=== PATIENT | male | born 1970 | race Caucasian/White ===

== ENCOUNTER → 2017-07-17 10:14 | Outpatient (CLI) | payer MEDICARE, MEDICAID, SELFPAY ==
[2017-07-17 13:08] LABS: Add Manual Diff / Slide Review NO; Basophils Percent Auto 0.9 % (0-2); Eosinophils Percent Auto 1.6 % (2-4); Hematocrit 42.5 % (41-53); Hemoglobin 13.9 g/dL (13.5-17.5); Lymphocytes Percent Auto 36.5 % (25-40); Mean Corpuscular HGB Conc 32.6 % (30-36); Mean Corpuscular Hemoglobin 29.4 PG (26-34); Mean Corpuscular Volume 90.3 fL (80-100); Monocytes Percent Auto 6.7 % (3-14); Neutrophils Absolute Auto 2200 /uL (3000-5900); Neutrophils Percent Auto 54.3 % (50-75); Platelet Count 203 X10^3/uL (150-400); Red Blood Cell Count 4.71 X10^6/uL (4.5-5.9); Red Cell Distribution Width 15.4 % (11.6-14.8)
[2017-07-17 13:38] LABS: Alanine Aminotransferase 22 IU/L (21-72); Albumin 4.2 g/dL (3.5-5.0); Albumin Globulin Ratio 1.4 (1.0-2.8); Alkaline Phosphatase 88 U/L (38-126); Aspartate Aminotransferase 21 IU/L (17-59); Bilirubin Total 0.3 mg/dL (0.2-1.3); Blood Urea Nitrogen 21 mg/dL (9-20); Calcium 9.3 mg/dL (8.4-10.2); Carbon Dioxide 18 mmol/L (22-32); Chloride 112 mmol/L (98-107); Cholesterol 123 mg/dL (140-199); Estimated Glomerular Filt Rate > 60.0 mL/min (>60); Globulin 3.1 g/dL (1.7-4.1); Glucose 85 mg/dL (70-100); HDL Cholesterol 46 mg/dL (40-60); HEMOLYSIS < 15 (0-50); LDL Cholesterol Calculated 61 mg/dL (<100); Potassium 4.6 mmol/L (3.4-5.1); Sodium 144 mmol/L (137-145); Total Protein 7.3 g/dL (6.3-8.2); Triglycerides 80 mg/dL (35-150)
[2017-07-17 13:52] LABS: Follicle Stimulating Hormone 2.72 mIU/mL; Luteinizing Hormone 8.97 mIU/mL
== END ==
PROVIDERS: Family Provider Internal Medicine; PCP Internal Medicine; Visit Provider Internal Medicine Endocrinology, Diabetes & Metabolism
DX: F64.0 Transsexualism (principal); Z00.00 Encounter for general adult medical examination without abnormal findings
CPT/HCPCS: 36415; 80053; 80061; 83001; 83002; 84402; 84403; 85025

== ENCOUNTER 2017-08-13 13:28 | Emergency (ER) | payer MEDICARE, MEDICAID, SELFPAY ==
[2017-08-13 13:36] VITALS: BP 131/89; PULSE 60; RESP 18; TEMP 36.2; O2SAT 99
--- NOTE | 2017-08-13 13:41 | ED_ITS ---
HPI - Abdominal Pain General Chief Complaint: Abdominal Pain Stated Complaint: PAIN LEFT SIDE Time Seen by Provider: 08/13/17 13:41 Source: patient Mode of arrival: ambulatory Limitations: no limitations History of Present Illness HPI narrative: 47-year-old male with history of epilepsy currently on those medications without change in his medicines recently here for evaluation of left upper quadrant abdominal pain. Patient states that has been going on for the past couple days but has worsened over the past day or so. No nausea. No urinary symptoms. No bowel symptoms. No skin changes. He has never anything like this before. No prior abdominal surgeries. Has not taken anything for It prior to arrival. Related Data Home Medications Medication Instructions Recorded Confirmed topiramate [Topamax] 100 mg PO BID #0 06/02/11 08/13/17 levetiracetam [Keppra] 2,000 mg PO BID #0 04/13/16 08/13/17 Previous Rx's Medication Instructions Recorded valacyclovir 1,000 mg PO QDAY #90 tab 04/10/16 quetiapine [Seroquel] 100 mg PO HS #90 tab 08/25/16 cyclobenzaprine 10 mg PO Q8HP PRN #20 tab 09/25/16 Allergies Allergy/AdvReac Type Severity Reaction Status Date / Time diazepam Allergy Severe TACHYCARDIA Unverified 05/23/17 12:05 strawberry Allergy Severe ANAPHYLAXIS Unverified 05/23/17 12:05 trazodone Allergy Intermediate SEIZURE Unverified 05/23/17 12:05 amitriptyline [AMITRIPTYLINE] Allergy Unknown Unverified 05/23/17 12:05 nortriptyline [NORTRIPTYLINE] Allergy Unknown Unverified 05/23/17 12:05 haloperidol AdvReac Severe JACKED ME Unverified 05/23/17 12:05 UP Review of Systems Constitutional Denies fatigue and Denies fever(s) ENT Ears, Nose, Mouth, and Throat: Denies vertigo and Denies dizziness Cardiovascular Denies chest pain, Denies palpitations and Denies dyspnea Respiratory Denies cough and Denies dyspnea Gastrointestinal Gastrointestinal: Reports abdominal pain, Denies cramping, Denies diarrhea, Denies nausea and Denies vomiting Genitourinary Denies dysuria and Denies flank pain Musculoskeletal Denies myalgias and Denies arthralgias Integumentary/Breasts Denies lesions, Denies rash and Denies wounds Neurologic Denies confusion, Denies vertigo and Denies dizziness Psychiatric Denies confusion Endocrine Denies fatigue and Denies palpitations Hematologic/Lymphatic Denies easy bleeding and Denies easy bruising Exam Initial Vital Signs Initial Vital Signs: Vital Signs Temperature 97.1 F L 08/13/17 13:36 Pulse Rate 60 08/13/17 13:36 Respiratory Rate 18 08/13/17 13:36 Blood Pressure 131/89 H 08/13/17 13:36 Pulse Oximetry 99 08/13/17 13:36 Const General: cooperative, healthy appearing, comfortable, well developed, well groomed and No acute distress Orientation: alert and oriented x3 HENMT Head: normal to inspection, normocephalic and atraumatic Cardio Rate: regular rate Rhythm: regular rhythm Pulses: radial pulses present GI Inspection: non-distended Palpation: soft, No guarding and tender ( left upper quadrant without rebound) Back/Spine/Pelvis Back: No CVA tenderness Skin Lesions: no lesions Rashes: no rashes Neuro General: alert, awake and oriented x3 Cognition: normal cognition Speech: speech normal Gait: normal gait Extrem General: normal to inspection, capillary refill normal and normal exam except as noted Psych Appearance: grossly normal, well kempt and not disheveled Course Orders Ordered: ED Orders 08/13/17 13:58 CT abdomen pelvis w con Stat 08/13/17 14:15 Complete Blood Count AUTO DIFF Stat Comprehensive Metabolic Panel Stat Lipase Stat Discontinued Medications Sodium Chloride (Normal Saline 0.9%) 1,000 mls @ 1,000 mls/hr IV BOLUS ONE Stop: 08/13/17 14:50 Last Admin: 08/13/17 14:30 Dose: 1,000 mls/hr Vital Signs - 8 hr 08/13/17 13:36 08/13/17 15:06 Temperature 97.1 F L Pulse Rate 60 60 Respiratory Rate 18 17 Blood Pressure 131/89 H Blood Pressure [Left Arm] 135/90 H Pulse Oximetry 99 100 MDM - Abdominal Pain Lab Data Attestation: I reviewed the patient's lab results. Result diagrams: 08/13/17 14:15 08/13/17 14:15 Lab Results 08/13/17 08/13/17 08/13/17 Range/Units 14:15 14:15 14:15 WBC 3.5 L (4.5-11.0) X10^3/uL RBC 4.68 (4.5-5.9) X10^6/uL Hgb 13.8 (13.5-17.5) g/dL Hct 41.7 (41-53) % MCV 89.2 (80-100) fL MCH 29.4 (26-34) PG MCHC 33.0 (30-36) % RDW 15.2 H (11.6-14.8) % Plt Count 227 (150-400) X10^3/uL Neut % (Auto) 45.8 L (50-75) % Lymph % (Auto) 43.9 H (25-40) % Mercer % (Auto) 7.3 (3-14) % Eos % (Auto) 1.9 L (2-4) % Baso % (Auto) 1.1 (0-2) % Neut # (Auto) 1600 L (8814-1326) /uL Sodium 139 (137-145) mmol/L Potassium 4.2 (3.4-5.1) mmol/L Chloride 105 (98-107) mmol/L Carbon Dioxide 24 (22-32) mmol/L BUN 7 L (9-20) mg/dL Creatinine 0.90 (0.66-1.25) mg/dL Estimated GFR > 60.0 (>60) mL/min BUN/Creatinine Ratio 7.8 (6-22) Glucose 85 (70-100) mg/dL Calcium 9.2 (8.4-10.2) mg/dL Total Bilirubin 0.5 (0.2-1.3) mg/dL AST 33 (17-59) IU/L ALT 26 (21-72) IU/L Alkaline Phosphatase 94 (38-126) U/L Total Protein 7.2 (6.3-8.2) g/dL Albumin 4.3 (3.5-5.0) g/dL Globulin 2.9 (1.7-4.1) g/dL Albumin/Globulin Ratio 1.5 (1.0-2.8) Lipase 106 Cancelled (23-300) U/L Point of care testing: Urine Dip Bedside Urine Glucose Negative Bedside Urine Bilirubin - Negative Bedside Urine Ketone - Negative Urine Specific Alexander 1.015 Bedside Urine Occult Blood - Negative Bedside Urine pH 6.0 Bedside Urine Protein - Negative Bedside Urine Urobilinogen - Negative Bedside Urine Nitrite - Negative Bedside Urine Leukocytes - Negative Esterase Imaging Data CT scan - abdomen: Radiologist's impression: PROCEDURE: CT ABDOMEN PELVIS W CON INDICATIONS: left upper quadrant abdominal pain TECHNIQUE: After the administration of intravenous contrast, 5 mm thick sections acquired from the diaphragm to the symphysis. 5 mm coronal and sagittal reformats were acquired. For radiation dose reduction, the following was used: automated exposure control, adjustment of mA and/or kV according to patient size. COMPARISON: [facility], CT, L-SPINE WITHOUT CONTRAST, 09/25/2016, 16:41. [facility], CT, CT-IVP, 02/23/2011, 9:45. FINDINGS: Image quality: Excellent. ABDOMEN: Lung bases: Lung bases are clear. Heart size is normal. Small hiatal hernia Solid organs: Liver is normal in size and enhancement. There is a 1 cm cyst in the left hepatic lobe. A 3 mm indeterminate hypodensity is noted near the liver dome, also likely a cyst. Gallbladder is normal. Biliary system is non dilated. Pancreas enhances normally. Spleen is normal in size and enhancement. No adrenal nodules. Kidneys demonstrate normal size and enhancement, without hydronephrosis. A simple appearing cyst is noted in the inferior pole of the left kidney. Peritoneum and bowel: There is mild nodularity in the posterior aspect of the gastric cardia, which is unchanged since 02/23/2011, likely due to inadequate distention. Bowel loops demonstrate normal wall thickness and caliber. No free fluid or air. Nodes and vessels: No retroperitoneal or mesenteric adenopathy by size criteria. Aorta and inferior vena cava are normal in size. Miscellaneous: No ventral hernias. PELVIS: Genitourinary: Bladder wall thickness is normal. Miscellaneous: No inguinal hernias or adenopathy. Bones: No suspicious bony lesions. No vertebral body compression fractures. Postsurgical changes in the lower lumbar spine. IMPRESSION: 1. No CT findings to explain left upper abdominal pain. 2. Hepatic cysts. 3. Simple appearing left renal cyst. 4. Small hiatal hernia. Dictated by: Precious Alex M.D. on 08/13/2017 at 15:04 Approved by: Precious Alex M.D. on 08/13/2017 at 15:18 MDM Narrative Medical decision making narrative: CT scan negative for acute pathology. Lipase is unremarkable And not consistent with pancreatitis. Upon re- evaluation patient was pinpoint tender on the intercostal muscles in between his anterior left lower ribs. I suspect that his pain is the result of spasm of these muscles. No indication for antibiotics. I did discuss this with him. No skin changes concerning for zoster. We did discuss treatment for these. We did discuss anti-inflammatories use. We did discuss return precautions. He expressed understanding and agreement with plan. Discharge Plan Departure Patient Disposition: Home, Self-Care Clinical Impression: Abdominal pain, acute, left upper quadrant, Intercostal pain Instructions: DI for Abdominal Pain-Adult Activity Restrictions/Additional Instructions: recommend that you take anti-inflammatories such as Motrin /ibuprofen and/or Tylenol/ acetaminophen for the discomfort. You can also do light stretching. You can also place heat or ice over the area as needed. Call your primary care doctor for a follow-up. Return to the emergency department for any new or worsening symptoms Prescriptions: No Action topiramate [Topamax] 100 MG tablet 100 mg PO BID Qty: 0 RF: 0 valacyclovir 1,000 MG tablet 1,000 mg PO QDAY Qty: 90 RF: 3 levetiracetam [Keppra] 1,000 MG tablet 2,000 mg PO BID Qty: 0 RF: 0 quetiapine [Seroquel] 100 MG tablet 100 mg PO HS Qty: 90 RF: 6 cyclobenzaprine 10 MG tablet 10 mg PO Q8HP PRNQty: 20 RF: 0
--- NOTE | 2017-08-13 13:58 | DI.CT.S_ITS ---
PROCEDURE: CT ABDOMEN PELVIS W CON INDICATIONS: left upper quadrant abdominal pain TECHNIQUE: After the administration of intravenous contrast, 5 mm thick sections acquired from the diaphragm to the symphysis. 5 mm coronal and sagittal reformats were acquired. For radiation dose reduction, the following was used: automated exposure control, adjustment of mA and/or kV according to patient size. COMPARISON: [facility], CT, L-SPINE WITHOUT CONTRAST, 09/25/2016, 16:41. [facility], CT, CT-IVP, 02/23/2011, 9:45. FINDINGS: Image quality: Excellent. ABDOMEN: Lung bases: Lung bases are clear. Heart size is normal. Small hiatal hernia Solid organs: Liver is normal in size and enhancement. There is a 1 cm cyst in the left hepatic lobe. A 3 mm indeterminate hypodensity is noted near the liver dome, also likely a cyst. Gallbladder is normal. Biliary system is non dilated. Pancreas enhances normally. Spleen is normal in size and enhancement. No adrenal nodules. Kidneys demonstrate normal size and enhancement, without hydronephrosis. A simple appearing cyst is noted in the inferior pole of the left kidney. Peritoneum and bowel: There is mild nodularity in the posterior aspect of the gastric cardia, which is unchanged since 02/23/2011, likely due to inadequate distention. Bowel loops demonstrate normal wall thickness and caliber. No free fluid or air. Nodes and vessels: No retroperitoneal or mesenteric adenopathy by size criteria. Aorta and inferior vena cava are normal in size. Miscellaneous: No ventral hernias. PELVIS: Genitourinary: Bladder wall thickness is normal. Miscellaneous: No inguinal hernias or adenopathy. Bones: No suspicious bony lesions. No vertebral body compression fractures. Postsurgical changes in the lower lumbar spine. IMPRESSION: 1. No CT findings to explain left upper abdominal pain. 2. Hepatic cysts. 3. Simple appearing left renal cyst. 4. Small hiatal hernia. Dictated by: Precious Alex M.D. on 08/13/2017 at 15:04 Approved by: Precious Alex M.D. on 08/13/2017 at 15:18
[2017-08-13 14:24] LABS: Add Manual Diff / Slide Review NO; Basophils Percent Auto 1.1 % (0-2); Eosinophils Percent Auto 1.9 % (2-4); Hematocrit 41.7 % (41-53); Hemoglobin 13.8 g/dL (13.5-17.5); Lymphocytes Percent Auto 43.9 % (25-40); Mean Corpuscular Hemoglobin 29.4 PG (26-34); Mean Corpuscular Volume 89.2 fL (80-100); Monocytes Percent Auto 7.3 % (3-14); Neutrophils Absolute Auto 1600 /uL (3000-5900); Neutrophils Percent Auto 45.8 % (50-75); Platelet Count 227 X10^3/uL (150-400); Red Blood Cell Count 4.68 X10^6/uL (4.5-5.9); Red Cell Distribution Width 15.2 % (11.6-14.8); White Blood Cell Count 3.5 X10^3/uL (4.5-11.0)
[2017-08-13] MEDS: SODIUM CHLORIDE 0.9% 1,000 ML 1000 ML IV (14:30)
[2017-08-13 14:38] LABS: Alanine Aminotransferase 26 IU/L (21-72); Albumin 4.3 g/dL (3.5-5.0); Albumin Globulin Ratio 1.5 (1.0-2.8); Alkaline Phosphatase 94 U/L (38-126); Aspartate Aminotransferase 33 IU/L (17-59); BUN Creatinine Ratio 7.8 (6-22); Bilirubin Total 0.5 mg/dL (0.2-1.3); Blood Urea Nitrogen 7 mg/dL (9-20); Calcium 9.2 mg/dL (8.4-10.2); Carbon Dioxide 24 mmol/L (22-32); Chloride 105 mmol/L (98-107); Estimated Glomerular Filt Rate > 60.0 mL/min (>60); Globulin 2.9 g/dL (1.7-4.1); Glucose 85 mg/dL (70-100); HEMOLYSIS < 15 (0-50); Lipase 106 U/L (23-300); Potassium 4.2 mmol/L (3.4-5.1); Sodium 139 mmol/L (137-145); Total Protein 7.2 g/dL (6.3-8.2)
[2017-08-13 15:06] VITALS: BP 135/90; PULSE 60; RESP 17; O2SAT 100
[2017-08-13 15:41] VITALS: BP 128/88; PULSE 54
== END 2017-08-13 15:53 | disposition home or self-care (01) ==
PROVIDERS: Emergency Provider Emergency Medicine; Family Provider Internal Medicine; PCP Internal Medicine
DX: R10.9 Unspecified abdominal pain (principal); R07.82 Intercostal pain
CPT/HCPCS: 36591; 74177; 80053; 81003; 83690; 85025; 96360; 99283; 99285; Q9967

== ENCOUNTER → 2017-09-20 12:39 | Outpatient (CLI) | payer MEDICARE, MEDICAID, SELFPAY ==
[2017-09-25 12:22] LABS: Levetiracetam Keppra 30.4 mcg/mL
== END ==
PROVIDERS: Family Provider Internal Medicine Endocrinology, Diabetes & Metabolism; PCP Internal Medicine; Visit Provider Psychiatry & Neurology Neurology
DX: G40.909 Epilepsy, unspecified, not intractable, without status epilepticus (principal)
CPT/HCPCS: 36415; 80177; 80201

== ENCOUNTER 2017-11-12 15:27 | Emergency (ER) | payer MEDICARE, MEDICAID, SELFPAY ==
[2017-11-12] VITALS (13 sets, daily range): BP systolic 111–144; BP diastolic 78–96; PULSE 44–91; RESP 13–20; TEMP 36.7; O2SAT 97–100; BMI 29.0
--- NOTE | 2017-11-12 15:55 | ED.CHESTPAIN ---
HPI - Chest Pain <Holli Leonard, DO - Last Filed: 11/12/17 18:08> General Chief Complaint: Chest Pain Stated Complaint: chest pain Time Seen by Provider: 11/12/17 15:39 Source: patient Mode of arrival: ambulatory Limitations: no limitations History of Present Illness HPI narrative: Patient is a 47-year-old male goes by Carl, presenting with left-sided chest. 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 He started having left-sided chest pain yesterday. It is fairly constant it is pinpoint he denies any shortness of breath or radiation. He has never had anything like this before. He was instructed as to be evaluated if he were having chest discomfort due to the surgeon. He denies any cough fever. The pain is not reproduced with breathing or arm movement. He feels like it is deeper inside. Related Data Home Medications Medication Instructions Recorded Confirmed topiramate [Topamax] 100 mg PO BID #0 06/02/11 11/12/17 levetiracetam [Keppra] 2,000 mg PO BID #0 04/13/16 11/12/17 estradiol 1 mg tablet 1 mg PO DAILY 10/23/17 11/12/17 valacyclovir 1,000 mg PO QPM 11/12/17 11/12/17 Previous Rx's Medication Instructions Recorded quetiapine 100 mg tablet 100 mg PO HS #90 tab 09/28/17 Allergies Allergy/AdvReac Type Severity Reaction Status Date / Time diazepam Allergy Severe TACHYCARDIA Verified 11/12/17 15:49 strawberry Allergy Severe ANAPHYLAXIS Verified 11/12/17 15:49 trazodone Allergy Intermediate SEIZURE Verified 11/12/17 15:49 amitriptyline [AMITRIPTYLINE] Allergy Unknown Verified 11/12/17 15:49 nortriptyline [NORTRIPTYLINE] Allergy Unknown Verified 11/12/17 15:49 haloperidol AdvReac Severe JACKED ME Verified 11/12/17 15:49 UP <Naima Martinez, DO - Last Filed: 11/13/17 00:00> History of Present Illness HPI narrative: This is a 47-year-old female to male transgender patient who comes in with complaint of chest pain that is been almost 24 hr in length. Patient states sort of in the left side of the chest. Nothing really seems to make it better or worse. They just noticed sort of show up yesterday. Patient states they came in because they were told any time they had chest pain to come in for evaluation. Denies any shortness of breath. No nausea, no vomiting or other symptoms. Patient also has a history significant for seizures and takes Keppra and Topamax. They take Seroquel for insomnia as well else I clear and estradiol. Patient does not have any significant family history for DVTs, PEs or cardiac history. He does smoke. Currently on my evaluation he is chest pain-free. Dr. Moseley from hospitalist service accepts patient for transfer. Exam <Holli Leonard DO - Last Filed: 11/12/17 18:08> Initial Vital Signs Initial Vital Signs: Vital Signs Temperature 98.1 F 11/12/17 15:28 Pulse Rate 78 11/12/17 15:28 Respiratory Rate 18 11/12/17 15:28 Blood Pressure 144/92 H 11/12/17 15:28 Pulse Oximetry 98 11/12/17 15:28 <Naima Martinez DO - Last Filed: 11/13/17 00:00> Initial Vital Signs Initial Vital Signs: Vital Signs Temperature 98.1 F 11/12/17 15:28 Pulse Rate 78 11/12/17 15:28 Respiratory Rate 18 11/12/17 15:28 Blood Pressure 144/92 H 11/12/17 15:28 Pulse Oximetry 98 11/12/17 15:28 GENERAL: Alert and oriented x three, well-nourished, well-appearing biological female HEENT: Head normocephalic, atraumatic, EOMI, pupils reactive, face symmetric, moist mucous membranes NECK: Supple, full range of motion CARDIOVASCULAR: Regular rate and rhythm without murmurs, rubs or gallops. RESPIRATORY: Breath sounds equal bilaterally, no wheezes rales or rhonchi. ABDOMEN: Soft, nontender. Normoactive bowel sounds all 4 quadrants. No guarding or rebound, rigidity, no mass EXTREMITIES: Normal range of motion, no clubbing or edema. Neurovascularly intact NEUROLOGICAL: Cranial nerves II through XII grossly intact. Moving all extremities SKIN: Warm, dry, no petechiae, no rashes or lesions. <Naima Martinez DO - Last Filed: 11/13/17 00:00> HEART Score Heart Score history: Slightly Suspicious Heart Score EKG: Normal Heart Score Age: 45-64 years old Heart Score risk factors: 1-2 risk factors Heart Score troponin: > 3 times normal limit Heart Score Total: 4 Course <Holli Leonard DO - Last Filed: 11/12/17 18:08> Orders Ordered: ED Orders 11/12/17 15:45 Complete Blood Count AUTO DIFF Stat Comprehensive Metabolic Panel Stat D Dimer Stat Lipase Stat Troponin & CK Cardiac Panel Stat 11/12/17 16:06 XR chest 1V Stat 11/12/17 18:52 Troponin I Stat Discontinued Medications Aspirin (Aspirin Chew) 324 mg PO NOW ONE Stop: 11/12/17 17:00 Last Admin: 11/12/17 17:09 Dose: 324 mg Enoxaparin Sodium (Lovenox) 120 mg 1 mg/kg (120 mg) SUBCUT NOW ONE Stop: 11/12/17 17:09 Last Admin: 11/12/17 17:15 Dose: 120 mg Nitroglycerin (Nitrostat) 0.4 mg SL NOW ONE Stop: 11/12/17 17:00 Last Admin: 11/12/17 16:59 Dose: 0.4 mg Vital Signs - 8 hr 11/12/17 16:00 11/12/17 16:42 11/12/17 16:59 Temperature Pulse Rate 55 L 59 L 71 Respiratory Rate 16 20 Blood Pressure 115/79 Blood Pressure [Right Arm] 126/84 115/79 Pulse Oximetry 98 97 11/12/17 17:04 11/12/17 17:05 11/12/17 19:05 Temperature 98.1 F Pulse Rate 59 L 73 60 Respiratory Rate 20 19 Blood Pressure 144/92 H 111/78 Blood Pressure [Right Arm] 123/96 H Pulse Oximetry 97 100 11/12/17 20:09 11/12/17 21:20 11/12/17 22:30 Temperature Pulse Rate 62 54 L 91 H Respiratory Rate 19 13 14 Blood Pressure Blood Pressure [Right Arm] 138/87 129/92 H 125/87 Pulse Oximetry 98 98 99 11/12/17 23:30 11/12/17 23:36 Temperature Pulse Rate 56 L 44 L Respiratory Rate 18 16 Blood Pressure Blood Pressure [Right Arm] 123/91 H 123/91 H Pulse Oximetry 99 100 <Naima Martinez DO - Last Filed: 11/13/17 00:00> Orders Ordered: ED Orders 11/12/17 15:45 Complete Blood Count AUTO DIFF Stat Comprehensive Metabolic Panel Stat D Dimer Stat Lipase Stat Troponin & CK Cardiac Panel Stat 11/12/17 16:06 XR chest 1V Stat 11/12/17 18:52 Troponin I Stat Discontinued Medications Aspirin (Aspirin Chew) 324 mg PO NOW ONE Stop: 11/12/17 17:00 Last Admin: 11/12/17 17:09 Dose: 324 mg Enoxaparin Sodium (Lovenox) 120 mg 1 mg/kg (120 mg) SUBCUT NOW ONE Stop: 11/12/17 17:09 Last Admin: 11/12/17 17:15 Dose: 120 mg Nitroglycerin (Nitrostat) 0.4 mg SL NOW ONE Stop: 11/12/17 17:00 Last Admin: 11/12/17 16:59 Dose: 0.4 mg Consultations Consultation #1: Recontacted [facility] in regards to chest pain and troponin with little change. 0.218 to 0.205. Patient accepted by Dr. Moseley the hospitalist @ 2036. Time: 19:56 Vital Signs - 8 hr 11/12/17 16:00 11/12/17 16:42 11/12/17 16:59 Temperature Pulse Rate 55 L 59 L 71 Respiratory Rate 16 20 Blood Pressure 115/79 Blood Pressure [Right Arm] 126/84 115/79 Pulse Oximetry 98 97 11/12/17 17:04 11/12/17 17:05 11/12/17 19:05 Temperature 98.1 F Pulse Rate 59 L 73 60 Respiratory Rate 20 19 Blood Pressure 144/92 H 111/78 Blood Pressure [Right Arm] 123/96 H Pulse Oximetry 97 100 11/12/17 20:09 11/12/17 21:20 11/12/17 22:30 Temperature Pulse Rate 62 54 L 91 H Respiratory Rate 19 13 14 Blood Pressure Blood Pressure [Right Arm] 138/87 129/92 H 125/87 Pulse Oximetry 98 98 99 11/12/17 23:30 11/12/17 23:36 Temperature Pulse Rate 56 L 44 L Respiratory Rate 18 16 Blood Pressure Blood Pressure [Right Arm] 123/91 H 123/91 H Pulse Oximetry 99 100 MDM - Chest Pain <Holli Leonard DO - Last Filed: 11/12/17 18:08> Lab Data Attestation: I reviewed the patient's lab results. Result diagrams: 11/12/17 15:45 11/12/17 15:45 Lab Results 11/12/17 11/12/17 11/12/17 Range/Units 15:45 15:45 15:45 WBC 4.4 L (4.5-11.0) X10^3/uL RBC 4.58 (4.5-5.9) X10^6/uL Hgb 13.5 (13.5-17.5) g/dL Hct 40.7 L (41-53) % MCV 88.8 (80-100) fL MCH 29.5 (26-34) PG MCHC 33.2 (30-36) % RDW 14.3 (11.6-14.8) % Plt Count 205 (150-400) X10^3/uL Neut % (Auto) 56.0 (50-75) % Lymph % (Auto) 33.9 (25-40) % Sanders % (Auto) 7.6 (3-14) % Eos % (Auto) 2.0 (2-4) % Baso % (Auto) 0.5 (0-2) % Neut # (Auto) 2500 L (8836-7508) /uL D-Dimer < 200 (<230) ng/mL Sodium 144 (137-145) mmol/L Potassium 4.0 (3.4-5.1) mmol/L Chloride 109 H (98-107) mmol/L Carbon Dioxide 22 (22-32) mmol/L BUN 11 (9-20) mg/dL Creatinine 1.20 (0.66-1.25) mg/dL Estimated GFR > 60.0 (>60) mL/min BUN/Creatinine Ratio 9.2 (6-22) Glucose 90 (70-100) mg/dL Calcium 9.4 (8.4-10.2) mg/dL Total Bilirubin 0.3 (0.2-1.3) mg/dL AST 30 (17-59) IU/L ALT 20 L (21-72) IU/L Alkaline Phosphatase 76 (38-126) U/L Total Creatine Kinase 75 (55-170) U/L CK-MB (CK-2) TNP CK-MB (CK-2) Rel Index TNP Troponin I 0.218 H* (0.01-0.034) ng/mL Total Protein 7.0 (6.3-8.2) g/dL Albumin 4.3 (3.5-5.0) g/dL Globulin 2.7 (1.7-4.1) g/dL Albumin/Globulin Ratio 1.6 (1.0-2.8) Lipase 173 (23-300) U/L 11/12/17 Range/Units 18:52 WBC (4.5-11.0) X10^3/uL RBC (4.5-5.9) X10^6/uL Hgb (13.5-17.5) g/dL Hct (41-53) % MCV (80-100) fL MCH (26-34) PG MCHC (30-36) % RDW (11.6-14.8) % Plt Count (150-400) X10^3/uL Neut % (Auto) (50-75) % Lymph % (Auto) (25-40) % Sanders % (Auto) (3-14) % Eos % (Auto) (2-4) % Baso % (Auto) (0-2) % Neut # (Auto) (7386-2506) /uL D-Dimer (<230) ng/mL Sodium (137-145) mmol/L Potassium (3.4-5.1) mmol/L Chloride (98-107) mmol/L Carbon Dioxide (22-32) mmol/L BUN (9-20) mg/dL Creatinine (0.66-1.25) mg/dL Estimated GFR (>60) mL/min BUN/Creatinine Ratio (6-22) Glucose (70-100) mg/dL Calcium (8.4-10.2) mg/dL Total Bilirubin (0.2-1.3) mg/dL AST (17-59) IU/L ALT (21-72) IU/L Alkaline Phosphatase (38-126) U/L Total Creatine Kinase (55-170) U/L CK-MB (CK-2) CK-MB (CK-2) Rel Index Troponin I 0.205 H* (0.01-0.034) ng/mL Total Protein (6.3-8.2) g/dL Albumin (3.5-5.0) g/dL Globulin (1.7-4.1) g/dL Albumin/Globulin Ratio (1.0-2.8) Lipase (23-300) U/L Urine Dip Bedside Urine Glucose Negative Bedside Urine Bilirubin - Negative Bedside Urine Ketone - Negative Urine Specific Hickman 1.030 Bedside Urine Occult Blood - Negative Bedside Urine pH 6.0 Bedside Urine Protein - Negative Bedside Urine Urobilinogen - Negative Bedside Urine Nitrite - Negative Bedside Urine Leukocytes - Negative Esterase ECG Data Attestation: I personally reviewed and interpreted this ECG as follows: Prior ECG tracings: available for review Interpretation: EKG 1. Normal sinus rhythm rate [address] changes no T-wave inversions no Q-waves similar to previous EKG MDM Narrative Medical decision making narrative: Patient appears comfortable he does not want anything for pain at this time does not feel like it is that bad. Troponin is positive 0.218. His D-dimer is negative unlikely to be PE. He does have risk factors of smoking 5:[address] Srivastava, at [facility] has been updated on patient's symptoms and test results. She is with Cardiology at this time recommend admission to hospitalist. 6:10 p.m.: I spoke with , hospitalist at [facility] who recommends repeating the troponin at 6:45 a.m.. If trending down may not need to be transferred that may just need to be admitted. Patient signed out to Dr. Martinez at shift change. <Naima Martinez, DO - Last Filed: 11/13/17 00:00> Lab Data Lab Results 11/12/17 11/12/17 11/12/17 Range/Units 15:45 15:45 15:45 WBC 4.4 L (4.5-11.0) X10^3/uL RBC 4.58 (4.5-5.9) X10^6/uL Hgb 13.5 (13.5-17.5) g/dL Hct 40.7 L (41-53) % MCV 88.8 (80-100) fL MCH 29.5 (26-34) PG MCHC 33.2 (30-36) % RDW 14.3 (11.6-14.8) % Plt Count 205 (150-400) X10^3/uL Neut % (Auto) 56.0 (50-75) % Lymph % (Auto) 33.9 (25-40) % Sanders % (Auto) 7.6 (3-14) % Eos % (Auto) 2.0 (2-4) % Baso % (Auto) 0.5 (0-2) % Neut # (Auto) 2500 L (9346-7302) /uL D-Dimer < 200 (<230) ng/mL Sodium 144 (137-145) mmol/L Potassium 4.0 (3.4-5.1) mmol/L Chloride 109 H (98-107) mmol/L Carbon Dioxide 22 (22-32) mmol/L BUN 11 (9-20) mg/dL Creatinine 1.20 (0.66-1.25) mg/dL Estimated GFR > 60.0 (>60) mL/min BUN/Creatinine Ratio 9.2 (6-22) Glucose 90 (70-100) mg/dL Calcium 9.4 (8.4-10.2) mg/dL Total Bilirubin 0.3 (0.2-1.3) mg/dL AST 30 (17-59) IU/L ALT 20 L (21-72) IU/L Alkaline Phosphatase 76 (38-126) U/L Total Creatine Kinase 75 (55-170) U/L CK-MB (CK-2) TNP CK-MB (CK-2) Rel Index TNP Troponin I 0.218 H* (0.01-0.034) ng/mL Total Protein 7.0 (6.3-8.2) g/dL Albumin 4.3 (3.5-5.0) g/dL Globulin 2.7 (1.7-4.1) g/dL Albumin/Globulin Ratio 1.6 (1.0-2.8) Lipase 173 (23-300) U/L 11/12/17 Range/Units 18:52 WBC (4.5-11.0) X10^3/uL RBC (4.5-5.9) X10^6/uL Hgb (13.5-17.5) g/dL Hct (41-53) % MCV (80-100) fL MCH (26-34) PG MCHC (30-36) % RDW (11.6-14.8) % Plt Count (150-400) X10^3/uL Neut % (Auto) (50-75) % Lymph % (Auto) (25-40) % Sanders % (Auto) (3-14) % Eos % (Auto) (2-4) % Baso % (Auto) (0-2) % Neut # (Auto) (7669-9057) /uL D-Dimer (<230) ng/mL Sodium (137-145) mmol/L Potassium (3.4-5.1) mmol/L Chloride (98-107) mmol/L Carbon Dioxide (22-32) mmol/L BUN (9-20) mg/dL Creatinine (0.66-1.25) mg/dL Estimated GFR (>60) mL/min BUN/Creatinine Ratio (6-22) Glucose (70-100) mg/dL Calcium (8.4-10.2) mg/dL Total Bilirubin (0.2-1.3) mg/dL AST (17-59) IU/L ALT (21-72) IU/L Alkaline Phosphatase (38-126) U/L Total Creatine Kinase (55-170) U/L CK-MB (CK-2) CK-MB (CK-2) Rel Index Troponin I 0.205 H* (0.01-0.034) ng/mL Total Protein (6.3-8.2) g/dL Albumin (3.5-5.0) g/dL Globulin (1.7-4.1) g/dL Albumin/Globulin Ratio (1.0-2.8) Lipase (23-300) U/L Urine Dip Bedside Urine Glucose Negative Bedside Urine Bilirubin - Negative Bedside Urine Ketone - Negative Urine Specific Hickman 1.030 Bedside Urine Occult Blood - Negative Bedside Urine pH 6.0 Bedside Urine Protein - Negative Bedside Urine Urobilinogen - Negative Bedside Urine Nitrite - Negative Bedside Urine Leukocytes - Negative Esterase ECG Data Attestation: I personally reviewed and interpreted this ECG as follows: Interpretation: EKG 3. Shows a sinus bradycardia with a rate of 54, P are 206, QRS of 111 and a QTC of 436. ST segments appear similar to prior EKGs from this evening from 1537 and 1645. MDM Narrative Medical decision making narrative: Patient was signed out to myself by Dr. kathleen taylor. She had been in touch with [facility] regarding elevated troponin and recent history of left-sided chest pain. When patient had arrived continued to have some left-sided chest pain. Two EKGs were obtained in the department with no acute changes noted. These were both reviewed by myself as well. Troponin was elevated at 0.218, patient did not have any other major lab abnormalities including d-dimer. Patient has not had a PE study. [facility] was contacted regarding possible transfer and patient history was discussed with the foreign exchange services manager, Dr. Srivastava as well as hospitalist, Dr. Blanhcard. They requested a repeat troponin and recontact regarding patient case. On my re-evaluation patient is chest pain-free repeat troponin is 0.205. Dr. Moseley at [facility] accepts [patient. @ 2250 called back and they will not have any beds. Patient HR briefly in the 40's, has been consistently 50-60's. Nursing ordered repeat EKG and reviewed with no acute changes. Discharge Plan Departure Patient Disposition: [facility] Clinical Impression: Non-ST elevated myocardial infarction Prescriptions: No Action topiramate [Topamax] 100 MG tablet 100 mg PO BID Qty: 0 RF: 0 levetiracetam [Keppra] 1,000 MG tablet 2,000 mg PO BID Qty: 0 RF: 0 quetiapine [Seroquel] 100 mg tablet 100 mg PO HS Qty: 90 RF: 0 estradiol 1 mg tablet 1 mg PO DAILY RF: 0 valacyclovir 1,000 MG tablet 1,000 mg PO QPM RF: 0
--- NOTE | 2017-11-12 16:06 | DI.RAD.S_ITS ---
PROCEDURE: XR CHEST 1V INDICATIONS: chest pain TECHNIQUE: One view of the chest was acquired. COMPARISON: [facility], CT, CT ABDOMEN PELVIS W CON, 08/13/2017, 14:36. [facility], CR, CHEST 2 VIEW, 08/08/2012, 14:50. [facility], CR, CHEST 2 VIEW, 01/05/2012, 12:13. [facility], , CHEST 1 VIEW, 04/13/2016, 18:32. FINDINGS: Surgical changes and devices: None. Lungs and pleura: No pleural effusions or pneumothorax. Lungs are clear. Mediastinum: Mediastinal contours appear normal. Heart size is normal. Bones and chest wall: No suspicious bony lesions. Age-appropriate bony degenerative changes are seen. Overlying soft tissues appear unremarkable. IMPRESSION: Portable chest within normal limits. Dictated by: Mirza Lyles M.D. on 11/12/2017 at 15:22 Approved by: Mirza Lyles M.D. on 11/12/2017 at 15:25
[2017-11-12 16:12] LABS: Add Manual Diff / Slide Review NO; Basophils Percent Auto 0.5 % (0-2); Hematocrit 40.7 % (41-53); Hemoglobin 13.5 g/dL (13.5-17.5); Lymphocytes Percent Auto 33.9 % (25-40); Mean Corpuscular HGB Conc 33.2 % (30-36); Mean Corpuscular Hemoglobin 29.5 PG (26-34); Mean Corpuscular Volume 88.8 fL (80-100); Monocytes Percent Auto 7.6 % (3-14); Neutrophils Absolute Auto 2500 /uL (3000-5900); Platelet Count 205 X10^3/uL (150-400); Red Blood Cell Count 4.58 X10^6/uL (4.5-5.9); Red Cell Distribution Width 14.3 % (11.6-14.8); White Blood Cell Count 4.4 X10^3/uL (4.5-11.0)
[2017-11-12 16:19] LABS: Alanine Aminotransferase 20 IU/L (21-72); Albumin 4.3 g/dL (3.5-5.0); Albumin Globulin Ratio 1.6 (1.0-2.8); Alkaline Phosphatase 76 U/L (38-126); Aspartate Aminotransferase 30 IU/L (17-59); BUN Creatinine Ratio 9.2 (6-22); Bilirubin Total 0.3 mg/dL (0.2-1.3); Blood Urea Nitrogen 11 mg/dL (9-20); Calcium 9.4 mg/dL (8.4-10.2); Carbon Dioxide 22 mmol/L (22-32); Chloride 109 mmol/L (98-107); Creatine Kinase 75 U/L (55-170); Estimated Glomerular Filt Rate > 60.0 mL/min (>60); Globulin 2.7 g/dL (1.7-4.1); Glucose 90 mg/dL (70-100); HEMOLYSIS < 15 (0-50); Lipase 173 U/L (23-300); Sodium 144 mmol/L (137-145)
[2017-11-12 16:41] LABS: D Dimer < 200 ng/mL (<230)
[2017-11-12 16:55] LABS: Troponin I 0.218 ng/mL (0.01-0.034)
[2017-11-12] MEDS: NITROGLYCERIN 0.4 MG SL TAB SL (16:59)
[2017-11-12] MEDS: ASPIRIN 81 MG TAB 324 MG PO (17:09)
[2017-11-12] MEDS: ENOXAPARIN 100 MG/ML SYRINGE 120 MG SUBCUT (17:15)
--- NOTE | 2017-11-12 17:43 | ED_ITS ---
HPI - Chest Pain <Holli Leonard, DO - Last Filed: 11/12/17 18:08> General Chief Complaint: Chest Pain Stated Complaint: chest pain Time Seen by Provider: 11/12/17 15:39 Source: patient Mode of arrival: ambulatory Limitations: no limitations History of Present Illness HPI narrative: Patient is a 47-year-old male goes by Carl, presenting with left- sided chest. 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 He started having left-sided chest pain yesterday. It is fairly constant it is pinpoint he denies any shortness of breath or radiation. He has never had anything like this before. He was instructed as to be evaluated if he were having chest discomfort due to the surgeon. He denies any cough fever. The pain is not reproduced with breathing or arm movement. He feels like it is deeper inside. Related Data Home Medications Medication Instructions Recorded Confirmed topiramate [Topamax] 100 mg PO BID #0 06/02/11 11/12/17 levetiracetam [Keppra] 2,000 mg PO BID #0 04/13/16 11/12/17 estradiol 1 mg tablet 1 mg PO DAILY 10/23/17 11/12/17 valacyclovir 1,000 mg PO QPM 11/12/17 11/12/17 Previous Rx's Medication Instructions Recorded quetiapine 100 mg tablet 100 mg PO HS #90 tab 09/28/17 Allergies Allergy/AdvReac Type Severity Reaction Status Date / Time diazepam Allergy Severe TACHYCARDIA Verified 11/12/17 15:49 strawberry Allergy Severe ANAPHYLAXIS Verified 11/12/17 15:49 trazodone Allergy Intermediate SEIZURE Verified 11/12/17 15:49 amitriptyline [AMITRIPTYLINE] Allergy Unknown Verified 11/12/17 15:49 nortriptyline [NORTRIPTYLINE] Allergy Unknown Verified 11/12/17 15:49 haloperidol AdvReac Severe JACKED ME Verified 11/12/17 15:49 UP <Naima Martinez, DO - Last Filed: 11/13/17 00:00> History of Present Illness HPI narrative: This is a 47-year-old female to male transgender patient who comes in with complaint of chest pain that is been almost 24 hr in length. Patient states sort of in the left side of the chest. Nothing really seems to make it better or worse. They just noticed sort of show up yesterday. Patient states they came in because they were told any time they had chest pain to come in for evaluation. Denies any shortness of breath. No nausea, no vomiting or other symptoms. Patient also has a history significant for seizures and takes Keppra and Topamax. They take Seroquel for insomnia as well else I clear and estradiol. Patient does not have any significant family history for DVTs, PEs or cardiac history. He does smoke. Currently on my evaluation he is chest pain -free. Dr. Moseley from hospitalist service accepts patient for transfer. Exam <Holli Leonard DO - Last Filed: 11/12/17 18:08> Initial Vital Signs Initial Vital Signs: Vital Signs Temperature 98.1 F 11/12/17 15:28 Pulse Rate 78 11/12/17 15:28 Respiratory Rate 18 11/12/17 15:28 Blood Pressure 144/92 H 11/12/17 15:28 Pulse Oximetry 98 11/12/17 15:28 <Naima Martinez DO - Last Filed: 11/13/17 00:00> Initial Vital Signs Initial Vital Signs: Vital Signs Temperature 98.1 F 11/12/17 15:28 Pulse Rate 78 11/12/17 15:28 Respiratory Rate 18 11/12/17 15:28 Blood Pressure 144/92 H 11/12/17 15:28 Pulse Oximetry 98 11/12/17 15:28 GENERAL: Alert and oriented x three, well-nourished, well-appearing biological female HEENT: Head normocephalic, atraumatic, EOMI, pupils reactive, face symmetric, moist mucous membranes NECK: Supple, full range of motion CARDIOVASCULAR: Regular rate and rhythm without murmurs, rubs or gallops. RESPIRATORY: Breath sounds equal bilaterally, no wheezes rales or rhonchi. ABDOMEN: Soft, nontender. Normoactive bowel sounds all 4 quadrants. No guarding or rebound, rigidity, no mass EXTREMITIES: Normal range of motion, no clubbing or edema. Neurovascularly intact NEUROLOGICAL: Cranial nerves II through XII grossly intact. Moving all extremities SKIN: Warm, dry, no petechiae, no rashes or lesions. <Naima Martinez DO - Last Filed: 11/13/17 00:00> HEART Score Heart Score history: Slightly Suspicious Heart Score EKG: Normal Heart Score Age: 45-64 years old Heart Score risk factors: 1-2 risk factors Heart Score troponin: > 3 times normal limit Heart Score Total: 4 Course <Holli Leonard DO - Last Filed: 11/12/17 18:08> Orders Ordered: ED Orders 11/12/17 15:45 Complete Blood Count AUTO DIFF Stat Comprehensive Metabolic Panel Stat D Dimer Stat Lipase Stat Troponin & CK Cardiac Panel Stat 11/12/17 16:06 XR chest 1V Stat 11/12/17 18:52 Troponin I Stat Discontinued Medications Aspirin (Aspirin Chew) 324 mg PO NOW ONE Stop: 11/12/17 17:00 Last Admin: 11/12/17 17:09 Dose: 324 mg Enoxaparin Sodium (Lovenox) 120 mg 1 mg/kg (120 mg) SUBCUT NOW ONE Stop: 11/12/17 17:09 Last Admin: 11/12/17 17:15 Dose: 120 mg Nitroglycerin (Nitrostat) 0.4 mg SL NOW ONE Stop: 11/12/17 17:00 Last Admin: 11/12/17 16:59 Dose: 0.4 mg Vital Signs - 8 hr 11/12/17 16:00 11/12/17 16:42 11/12/17 16:59 Temperature Pulse Rate 55 L 59 L 71 Respiratory Rate 16 20 Blood Pressure 115/79 Blood Pressure [Right Arm] 126/84 115/79 Pulse Oximetry 98 97 11/12/17 17:04 11/12/17 17:05 11/12/17 19:05 Temperature 98.1 F Pulse Rate 59 L 73 60 Respiratory Rate 20 19 Blood Pressure 144/92 H 111/78 Blood Pressure [Right Arm] 123/96 H Pulse Oximetry 97 100 11/12/17 20:09 11/12/17 21:20 11/12/17 22:30 Temperature Pulse Rate 62 54 L 91 H Respiratory Rate 19 13 14 Blood Pressure Blood Pressure [Right Arm] 138/87 129/92 H 125/87 Pulse Oximetry 98 98 99 11/12/17 23:30 11/12/17 23:36 Temperature Pulse Rate 56 L 44 L Respiratory Rate 18 16 Blood Pressure Blood Pressure [Right Arm] 123/91 H 123/91 H Pulse Oximetry 99 100 <Naima Martinez DO - Last Filed: 11/13/17 00:00> Orders Ordered: ED Orders 11/12/17 15:45 Complete Blood Count AUTO DIFF Stat Comprehensive Metabolic Panel Stat D Dimer Stat Lipase Stat Troponin & CK Cardiac Panel Stat 11/12/17 16:06 XR chest 1V Stat 11/12/17 18:52 Troponin I Stat Discontinued Medications Aspirin (Aspirin Chew) 324 mg PO NOW ONE Stop: 11/12/17 17:00 Last Admin: 11/12/17 17:09 Dose: 324 mg Enoxaparin Sodium (Lovenox) 120 mg 1 mg/kg (120 mg) SUBCUT NOW ONE Stop: 11/12/17 17:09 Last Admin: 11/12/17 17:15 Dose: 120 mg Nitroglycerin (Nitrostat) 0.4 mg SL NOW ONE Stop: 11/12/17 17:00 Last Admin: 11/12/17 16:59 Dose: 0.4 mg Consultations Consultation #1: Recontacted [facility] in regards to chest pain and troponin with little change. 0.218 to 0.205. Patient accepted by Dr. Moseley the hospitalist @ 2036. Time: 19:56 Vital Signs - 8 hr 11/12/17 16:00 11/12/17 16:42 11/12/17 16:59 Temperature Pulse Rate 55 L 59 L 71 Respiratory Rate 16 20 Blood Pressure 115/79 Blood Pressure [Right Arm] 126/84 115/79 Pulse Oximetry 98 97 11/12/17 17:04 11/12/17 17:05 11/12/17 19:05 Temperature 98.1 F Pulse Rate 59 L 73 60 Respiratory Rate 20 19 Blood Pressure 144/92 H 111/78 Blood Pressure [Right Arm] 123/96 H Pulse Oximetry 97 100 11/12/17 20:09 11/12/17 21:20 11/12/17 22:30 Temperature Pulse Rate 62 54 L 91 H Respiratory Rate 19 13 14 Blood Pressure Blood Pressure [Right Arm] 138/87 129/92 H 125/87 Pulse Oximetry 98 98 99 11/12/17 23:30 11/12/17 23:36 Temperature Pulse Rate 56 L 44 L Respiratory Rate 18 16 Blood Pressure Blood Pressure [Right Arm] 123/91 H 123/91 H Pulse Oximetry 99 100 MDM - Chest Pain <Holli Leonard DO - Last Filed: 11/12/17 18:08> Lab Data Attestation: I reviewed the patient's lab results. Result diagrams: 11/12/17 15:45 11/12/17 15:45 Lab Results 11/12/17 11/12/17 11/12/17 Range/Units 15:45 15:45 15:45 WBC 4.4 L (4.5-11.0) X10^3/uL RBC 4.58 (4.5-5.9) X10^6/uL Hgb 13.5 (13.5-17.5) g/dL Hct 40.7 L (41-53) % MCV 88.8 (80-100) fL MCH 29.5 (26-34) PG MCHC 33.2 (30-36) % RDW 14.3 (11.6-14.8) % Plt Count 205 (150-400) X10^3/uL Neut % (Auto) 56.0 (50-75) % Lymph % (Auto) 33.9 (25-40) % [place] % (Auto) 7.6 (3-14) % Eos % (Auto) 2.0 (2-4) % Baso % (Auto) 0.5 (0-2) % Neut # (Auto) 2500 L (6399-2732) /uL D-Dimer < 200 (<230) ng/mL Sodium 144 (137-145) mmol/L Potassium 4.0 (3.4-5.1) mmol/L Chloride 109 H (98-107) mmol/L Carbon Dioxide 22 (22-32) mmol/L BUN 11 (9-20) mg/dL Creatinine 1.20 (0.66-1.25) mg/dL Estimated GFR > 60.0 (>60) mL/min BUN/Creatinine Ratio 9.2 (6-22) Glucose 90 (70-100) mg/dL Calcium 9.4 (8.4-10.2) mg/dL Total Bilirubin 0.3 (0.2-1.3) mg/dL AST 30 (17-59) IU/L ALT 20 L (21-72) IU/L Alkaline Phosphatase 76 (38-126) U/L Total Creatine Kinase 75 (55-170) U/L CK-MB (CK-2) TNP CK-MB (CK-2) Rel Index TNP Troponin I 0.218 H* (0.01-0.034) ng/mL Total Protein 7.0 (6.3-8.2) g/dL Albumin 4.3 (3.5-5.0) g/dL Globulin 2.7 (1.7-4.1) g/dL Albumin/Globulin Ratio 1.6 (1.0-2.8) Lipase 173 (23-300) U/L 11/12/17 Range/Units 18:52 WBC (4.5-11.0) X10^3/uL RBC (4.5-5.9) X10^6/uL Hgb (13.5-17.5) g/dL Hct (41-53) % MCV (80-100) fL MCH (26-34) PG MCHC (30-36) % RDW (11.6-14.8) % Plt Count (150-400) X10^3/uL Neut % (Auto) (50-75) % Lymph % (Auto) (25-40) % [place] % (Auto) (3-14) % Eos % (Auto) (2-4) % Baso % (Auto) (0-2) % Neut # (Auto) (5378-2528) /uL D-Dimer (<230) ng/mL Sodium (137-145) mmol/L Potassium (3.4-5.1) mmol/L Chloride (98-107) mmol/L Carbon Dioxide (22-32) mmol/L BUN (9-20) mg/dL Creatinine (0.66-1.25) mg/dL Estimated GFR (>60) mL/min BUN/Creatinine Ratio (6-22) Glucose (70-100) mg/dL Calcium (8.4-10.2) mg/dL Total Bilirubin (0.2-1.3) mg/dL AST (17-59) IU/L ALT (21-72) IU/L Alkaline Phosphatase (38-126) U/L Total Creatine Kinase (55-170) U/L CK-MB (CK-2) CK-MB (CK-2) Rel Index Troponin I 0.205 H* (0.01-0.034) ng/mL Total Protein (6.3-8.2) g/dL Albumin (3.5-5.0) g/dL Globulin (1.7-4.1) g/dL Albumin/Globulin Ratio (1.0-2.8) Lipase (23-300) U/L Urine Dip Bedside Urine Glucose Negative Bedside Urine Bilirubin - Negative Bedside Urine Ketone - Negative Urine Specific [place] 1.030 Bedside Urine Occult Blood - Negative Bedside Urine pH 6.0 Bedside Urine Protein - Negative Bedside Urine Urobilinogen - Negative Bedside Urine Nitrite - Negative Bedside Urine Leukocytes - Negative Esterase ECG Data Attestation: I personally reviewed and interpreted this ECG as follows: Prior ECG tracings: available for review Interpretation: EKG 1. Normal sinus rhythm rate [address] changes no T-wave inversions no Q-waves similar to previous EKG MDM Narrative Medical decision making narrative: Patient appears comfortable he does not want anything for pain at this time does not feel like it is that bad. Troponin is positive 0.218. His D-dimer is negative unlikely to be PE. He does have risk factors of smoking 5:[address] Srivastava, at [facility] has been updated on patient's symptoms and test results. She is with Cardiology at this time recommend admission to hospitalist. 6:10 p.m.: I spoke with , hospitalist at [facility] who recommends repeating the troponin at 6:45 a.m.. If trending down may not need to be transferred that may just need to be admitted. Patient signed out to Dr. Martinez at shift change. <Naima Martinez, DO - Last Filed: 11/13/17 00:00> Lab Data Lab Results 11/12/17 11/12/17 11/12/17 Range/Units 15:45 15:45 15:45 WBC 4.4 L (4.5-11.0) X10^3/uL RBC 4.58 (4.5-5.9) X10^6/uL Hgb 13.5 (13.5-17.5) g/dL Hct 40.7 L (41-53) % MCV 88.8 (80-100) fL MCH 29.5 (26-34) PG MCHC 33.2 (30-36) % RDW 14.3 (11.6-14.8) % Plt Count 205 (150-400) X10^3/uL Neut % (Auto) 56.0 (50-75) % Lymph % (Auto) 33.9 (25-40) % [place] % (Auto) 7.6 (3-14) % Eos % (Auto) 2.0 (2-4) % Baso % (Auto) 0.5 (0-2) % Neut # (Auto) 2500 L (8585-9799) /uL D-Dimer < 200 (<230) ng/mL Sodium 144 (137-145) mmol/L Potassium 4.0 (3.4-5.1) mmol/L Chloride 109 H (98-107) mmol/L Carbon Dioxide 22 (22-32) mmol/L BUN 11 (9-20) mg/dL Creatinine 1.20 (0.66-1.25) mg/dL Estimated GFR > 60.0 (>60) mL/min BUN/Creatinine Ratio 9.2 (6-22) Glucose 90 (70-100) mg/dL Calcium 9.4 (8.4-10.2) mg/dL Total Bilirubin 0.3 (0.2-1.3) mg/dL AST 30 (17-59) IU/L ALT 20 L (21-72) IU/L Alkaline Phosphatase 76 (38-126) U/L Total Creatine Kinase 75 (55-170) U/L CK-MB (CK-2) TNP CK-MB (CK-2) Rel Index TNP Troponin I 0.218 H* (0.01-0.034) ng/mL Total Protein 7.0 (6.3-8.2) g/dL Albumin 4.3 (3.5-5.0) g/dL Globulin 2.7 (1.7-4.1) g/dL Albumin/Globulin Ratio 1.6 (1.0-2.8) Lipase 173 (23-300) U/L 11/12/17 Range/Units 18:52 WBC (4.5-11.0) X10^3/uL RBC (4.5-5.9) X10^6/uL Hgb (13.5-17.5) g/dL Hct (41-53) % MCV (80-100) fL MCH (26-34) PG MCHC (30-36) % RDW (11.6-14.8) % Plt Count (150-400) X10^3/uL Neut % (Auto) (50-75) % Lymph % (Auto) (25-40) % [place] % (Auto) (3-14) % Eos % (Auto) (2-4) % Baso % (Auto) (0-2) % Neut # (Auto) (0961-8039) /uL D-Dimer (<230) ng/mL Sodium (137-145) mmol/L Potassium (3.4-5.1) mmol/L Chloride (98-107) mmol/L Carbon Dioxide (22-32) mmol/L BUN (9-20) mg/dL Creatinine (0.66-1.25) mg/dL Estimated GFR (>60) mL/min BUN/Creatinine Ratio (6-22) Glucose (70-100) mg/dL Calcium (8.4-10.2) mg/dL Total Bilirubin (0.2-1.3) mg/dL AST (17-59) IU/L ALT (21-72) IU/L Alkaline Phosphatase (38-126) U/L Total Creatine Kinase (55-170) U/L CK-MB (CK-2) CK-MB (CK-2) Rel Index Troponin I 0.205 H* (0.01-0.034) ng/mL Total Protein (6.3-8.2) g/dL Albumin (3.5-5.0) g/dL Globulin (1.7-4.1) g/dL Albumin/Globulin Ratio (1.0-2.8) Lipase (23-300) U/L Urine Dip Bedside Urine Glucose Negative Bedside Urine Bilirubin - Negative Bedside Urine Ketone - Negative Urine Specific [place] 1.030 Bedside Urine Occult Blood - Negative Bedside Urine pH 6.0 Bedside Urine Protein - Negative Bedside Urine Urobilinogen - Negative Bedside Urine Nitrite - Negative Bedside Urine Leukocytes - Negative Esterase ECG Data Attestation: I personally reviewed and interpreted this ECG as follows: Interpretation: EKG 3. Shows a sinus bradycardia with a rate of 54, P are 206, QRS of 111 and a QTC of 436. ST segments appear similar to prior EKGs from this evening from 1537 and 1645. MDM Narrative Medical decision making narrative: Patient was signed out to myself by Dr. kathleen taylor. She had been in touch with [facility] regarding elevated troponin and recent history of left-sided chest pain. When patient had arrived continued to have some left-sided chest pain. Two EKGs were obtained in the department with no acute changes noted. These were both reviewed by myself as well. Troponin was elevated at 0.218, patient did not have any other major lab abnormalities including d-dimer. Patient has not had a PE study. [facility] was contacted regarding possible transfer and patient history was discussed with the enrichment director, Dr. Srivastava as well as hospitalist, Dr. Blanchard. They requested a repeat troponin and recontact regarding patient case. On my re-evaluation patient is chest pain-free repeat troponin is 0.205. Dr. Moseley at [facility] accepts [patient. @ 2250 called back and they will not have any beds. Patient HR briefly in the 40's, has been consistently 50-60's. Nursing ordered repeat EKG and reviewed with no acute changes. Discharge Plan Departure Patient Disposition: [facility] Clinical Impression: Non-ST elevated myocardial infarction Prescriptions: No Action topiramate [Topamax] 100 MG tablet 100 mg PO BID Qty: 0 RF: 0 levetiracetam [Keppra] 1,000 MG tablet 2,000 mg PO BID Qty: 0 RF: 0 quetiapine [Seroquel] 100 mg tablet 100 mg PO HS Qty: 90 RF: 0 estradiol 1 mg tablet 1 mg PO DAILY RF: 0 valacyclovir 1,000 MG tablet 1,000 mg PO QPM RF: 0
[2017-11-12 19:36] LABS: Troponin I 0.205 ng/mL (0.01-0.034)
--- NOTE | 2017-11-12 23:37 | PC.NURSE ---
HR noted in 40's. Pt denies CP but states they have a history of mitral valve prolapse and feels like the blood is now getting into my heart. Dr Martinez notified. Repeat 12 lead ordered. Pt is awake, alert, NAD.
[2017-11-13 00:11] VITALS: BP 127/86; PULSE 50; RESP 18; O2SAT 98
== END 2017-11-13 00:33 | disposition short-term general hospital (02) ==
PROVIDERS: Emergency Medicine; Emergency Provider Emergency Medicine; Family Provider Internal Medicine Endocrinology, Diabetes & Metabolism; PCP Internal Medicine
DX: I21.4 Non-ST elevation (NSTEMI) myocardial infarction (principal)
CPT/HCPCS: 36591; 71045; 80053; 81003; 82550; 83690; 84484; 85025; 85379; 93005; 99284; 99285; J1650

== ENCOUNTER 2017-12-13 10:30 | Outpatient (RCR) | payer MEDICARE, MEDICAID, SELFPAY | END 2018-01-28 16:35 | LOC: SP 10:30 | PROVIDERS: Family Provider Internal Medicine Endocrinology, Diabetes & Metabolism; PCP Internal Medicine; Visit Provider Internal Medicine | DX: F64.0 Transsexualism (principal) | CPT/HCPCS: 92507; 92520; 92524 ==

== ENCOUNTER → 2017-12-18 10:10 | Outpatient (CLI) | payer MEDICARE, MEDICAID, SELFPAY ==
[2017-12-18 11:36] LABS: Alanine Aminotransferase 23 IU/L (21-72); Albumin 4.4 g/dL (3.5-5.0); Albumin Globulin Ratio 1.7 (1.0-2.8); Alkaline Phosphatase 80 U/L (38-126); Aspartate Aminotransferase 21 IU/L (17-59); Bilirubin Total 0.2 mg/dL (0.2-1.3); Cholesterol 108 mg/dL (140-199); Globulin 2.6 g/dL (1.7-4.1); HDL Cholesterol 49 mg/dL (40-60); HEMOLYSIS < 15 (0-50); LDL Cholesterol Calculated 46 mg/dL (<100); Triglycerides 64 mg/dL (35-150)
[2017-12-18 11:49] LABS: Luteinizing Hormone 5.14 mIU/mL
[2017-12-19 14:57] LABS: Estradiol 43 pg/mL (< 40)
[2017-12-19 18:36] LABS: Sex Hormone Binding Globulin 37 nmol/L (10-50)
== END ==
PROVIDERS: Family Provider Internal Medicine Endocrinology, Diabetes & Metabolism; PCP Internal Medicine; Visit Provider Internal Medicine Endocrinology, Diabetes & Metabolism
DX: F64.0 Transsexualism (principal); Z00.00 Encounter for general adult medical examination without abnormal findings
CPT/HCPCS: 36415; 80061; 80076; 82670; 83002; 84270; 84403

== ENCOUNTER → 2018-01-08 14:44 | Outpatient (CLI) | payer MEDICARE, MEDICAID, SELFPAY ==
[2018-01-08 20:46] LABS: Urine Chlamydia NOT DETECTED; Urine N gonorrhoeae NOT DETECTED
== END ==
PROVIDERS: Family Provider Internal Medicine Endocrinology, Diabetes & Metabolism; PCP Internal Medicine; Visit Provider Physician Assistant
DX: R30.0 Dysuria (principal); Z20.2 Contact with and (suspected) exposure to infections with a predominantly sexual mode of transmission; A64 Unspecified sexually transmitted disease; R35.8 Other polyuria
CPT/HCPCS: 87086; 87491; 87591

== ENCOUNTER 2018-01-09 14:54 | Emergency (ER) | payer MEDICARE, MEDICAID, SELFPAY ==
[2018-01-09 15:00] VITALS: BP 138/95; PULSE 83; RESP 14; TEMP 36.9; O2SAT 96
--- NOTE | 2018-01-09 15:20 | ED.MALEGU ---
HPI - Male Genitourinary <MITCHEL Mike - Last Filed: 01/09/18 22:35> General Chief complaint: Urogenital-Male Stated complaint: UNABLE TO URINATE Time Seen by Provider: 01/09/18 15:01 Source: patient Mode of arrival: ambulatory Limitations: no limitations History of Present Illness HPI Narrative: 47-year-old male with history of a mitral valve prolapse that is congenital and is a former smoker here for complaint of having dysuria and difficulty in urinating over the past several days. He was seen in the walk-in clinic yesterday and had a negative urine for urinary tract infection. He reports having pain into the suprapubic region he also has pain into his testicle area. He denies any rectal pain he denies any fevers or chills. Positive p.o. intake no nausea vomiting. He denies any penile discharge. He denies any sexual partners Related Data Home Medications Medication Instructions Recorded Confirmed levetiracetam [Keppra] 2,000 mg PO BID #0 04/13/16 01/09/18 valacyclovir 1,000 mg PO QPM 11/12/17 01/09/18 estradiol 2 mg PO DAILY 01/09/18 quetiapine [Seroquel] 100 mg PO BEDTIME 01/09/18 01/09/18 topiramate 200 mg PO BID 01/09/18 01/09/18 Allergies Allergy/AdvReac Type Severity Reaction Status Date / Time diazepam Allergy Severe TACHYCARDIA Verified 01/09/18 15:12 strawberry Allergy Severe ANAPHYLAXIS Verified 01/09/18 15:12 trazodone Allergy Intermediate SEIZURE Verified 01/09/18 15:12 amitriptyline [AMITRIPTYLINE] Allergy Unknown Verified 01/09/18 15:12 nortriptyline [NORTRIPTYLINE] Allergy Unknown Verified 01/09/18 15:12 haloperidol AdvReac Severe JACKED ME Verified 01/09/18 15:12 UP Review of Systems <MITCHEL Mike - Last Filed: 01/09/18 22:35> Constitutional Denies chills, Denies fever(s), Denies lethargy and Denies weakness Eyes Denies change in vision, Denies eye discharge, Denies irritation and Denies loss of vision ENT Ears, Nose, Mouth, and Throat: Denies change in voice, Denies neck pain and Denies sore throat Cardiovascular Denies chest pain, Denies irregular heart rhythm, Denies lightheadedness, Denies palpitations, Denies dyspnea, Denies dyspnea on exertion and Denies orthopnea Respiratory Denies cough, Denies dyspnea, Denies dyspnea on exertion and Denies wheezing Gastrointestinal Gastrointestinal: Denies abdominal pain, Denies change in bowel habits, Denies diarrhea, Denies nausea and Denies vomiting Genitourinary Comments: Dysuria with testicular pain and suprapubic pain. Also difficulty in urination Musculoskeletal Denies neck pain Integumentary/Breasts Denies pruritus, Denies erythema, Denies rash and Denies wounds Neurologic Denies confusion, Denies loss of vision and Denies weakness Psychiatric Denies anxiety, Denies confusion, Denies depression, Denies homicidal ideation and Denies suicidal ideation Endocrine Denies palpitations Hematologic/Lymphatic Denies easy bruising Allergic/Immunologic Denies wheezing Exam <MITCHEL Mike - Last Filed: 01/09/18 22:35> Initial Vital Signs Initial Vital Signs: Vital Signs Temperature 98.5 F 01/09/18 15:00 Pulse Rate 83 01/09/18 15:00 Respiratory Rate 14 01/09/18 15:00 Blood Pressure 138/95 H 01/09/18 15:00 Pulse Oximetry 96 01/09/18 15:00 Const General: cooperative and well developed Nutritional Appearance: well nourished Orientation: alert, awake, oriented x3 and not confused [facility] Mouth: oral mucosae normal and moist mucous membranes Eyes Conjunctivae: conjunctivae normal Sclera: sclerae normal Pupils: PERRL EOM: EOM intact bilaterally Resp Effort & Inspection: normal respiratory effort, able to speak in complete sentences, no respiratory distress and no use of accessory muscles Auscultation: clear to auscultation bilaterally, no rales, no rhonchi and no wheezes Cardio Rate: regular rate Rhythm: regular rhythm Heart Sounds: no click, no gallops, no murmurs and no rubs GI Inspection: non-distended Palpation: soft, no hepatosplenomegaly, No guarding, No pulsatile mass and tender (Tenderness in suprapubic region) Auscultation: normal bowel sounds Rectal Exam: normal sphincter tone, prostate normal and hemorrhoids General: No CVA tenderness Penis: normal penis Meatus: meatus normal Scrotum: scrotum normal Testes: normal, epididymal tenderness, no testicular mass and testicular tenderness bilaterally Other: No CVA tenderness Back/Spine/Pelvis Back: No CVA tenderness Cervical Spine: cervical ROM normal and No pain with cervical ROM Thoracic/Lumbar Spine: thoracic and lumbar spine normal to inspection Skin General: no rashes or lesions noted, No jaundice and No petechiae Neuro General: alert, oriented x3, gait normal and no focal motor deficits Speech: speech normal <Holli Leonard DO - Last Filed: 01/10/18 18:44> Initial Vital Signs Initial Vital Signs: Vital Signs Temperature 98.5 F 01/09/18 15:00 Pulse Rate 83 01/09/18 15:00 Respiratory Rate 14 01/09/18 15:00 Blood Pressure 138/95 H 01/09/18 15:00 Pulse Oximetry 96 01/09/18 15:00 Course <MITCHEL Mike - Last Filed: 01/09/18 22:35> Orders Ordered: ED Orders 01/09/18 15:27 US scrotum Stat 01/09/18 15:35 UA Complete [Urinalysis and Microscopic] Stat 01/09/18 16:19 CT kidney ureter bladder (KUB) Stat 01/09/18 16:46 Complete Blood Count AUTO DIFF Stat Comprehensive Metabolic Panel Stat Vital Signs - 8 hr 01/09/18 15:00 01/09/18 16:00 01/09/18 18:00 Temperature 98.5 F Pulse Rate 83 54 L 63 Respiratory Rate 14 Blood Pressure 138/95 H Blood Pressure [Right Arm] 124/82 129/90 Pulse Oximetry 96 100 100 01/09/18 18:53 Temperature Pulse Rate 59 L Respiratory Rate 15 Blood Pressure 119/89 Blood Pressure [Right Arm] Pulse Oximetry 97 <Holli Leonard DO - Last Filed: 01/10/18 18:44> Orders Ordered: ED Orders 01/09/18 15:27 US scrotum Stat 01/09/18 15:35 UA Complete [Urinalysis and Microscopic] Stat 01/09/18 16:19 CT kidney ureter bladder (KUB) Stat 01/09/18 16:46 Complete Blood Count AUTO DIFF Stat Comprehensive Metabolic Panel Stat Vital Signs - 8 hr 01/09/18 15:00 01/09/18 16:00 11/28/18 18:00 Temperature 98.5 F Pulse Rate 83 54 L 63 Respiratory Rate 14 Blood Pressure 138/95 H Blood Pressure [Right Arm] 124/82 129/90 Pulse Oximetry 96 100 100 01/09/18 18:53 Temperature Pulse Rate 59 L Respiratory Rate 15 Blood Pressure 119/89 Blood Pressure [Right Arm] Pulse Oximetry 97 MDM - Male Genitourinary <MITCHEL Mike - Last Filed: 01/09/18 22:35> Lab Data Result diagrams: 01/09/18 16:46 01/09/18 16:46 Lab Results 01/09/18 01/09/18 01/09/18 Range/Units 15:35 16:46 16:46 WBC 5.1 (4.5-11.0) X10^3/uL RBC 4.46 L (4.5-5.9) X10^6/uL Hgb 13.3 L (13.5-17.5) g/dL Hct 40.3 L (41-53) % MCV 90.3 (80-100) fL MCH 29.7 (26-34) PG MCHC 32.9 (30-36) % RDW 14.4 (11.6-14.8) % Plt Count 248 (150-400) X10^3/uL Neut % (Auto) 62.9 (50-75) % Lymph % (Auto) 28.9 (25-40) % [place] % (Auto) 6.7 (3-14) % Eos % (Auto) 0.7 L (2-4) % Baso % (Auto) 0.8 (0-2) % Neut # (Auto) 3200 (4621-0183) /uL Sodium 146 H (137-145) mmol/L Potassium 4.2 (3.4-5.1) mmol/L Chloride 112 H (98-107) mmol/L Carbon Dioxide 17 L (22-32) mmol/L BUN 11 (9-20) mg/dL Creatinine 1.10 (0.66-1.25) mg/dL Estimated GFR > 60.0 (>60) mL/min BUN/Creatinine Ratio 10.0 (6-22) Glucose 90 (70-100) mg/dL Calcium 9.4 (8.4-10.2) mg/dL Total Bilirubin 0.4 (0.2-1.3) mg/dL AST 19 (17-59) IU/L ALT 12 L (21-72) IU/L Alkaline Phosphatase 87 (38-126) U/L Total Protein 7.5 (6.3-8.2) g/dL Albumin 4.6 (3.5-5.0) g/dL Globulin 2.9 (1.7-4.1) g/dL Albumin/Globulin Ratio 1.6 (1.0-2.8) Urine Color Yellow Urine Appearance Clear Urine pH 6.0 (4.5-8.0) Ur Specific [place] <=1.005 (1.000-1.035) Urine Protein Negative (Negative) Urine Glucose (UA) Negative (Normal) g/dL Urine Ketones Negative (NEGATIVE) Urine Occult Blood Negative (Negative) Urine Nitrate Negative (Negative) Urine Bilirubin Negative (NEGATIVE) Urine Urobilinogen 0.2 (0.2) E.U./dL Ur Leukocyte Esterase Negative (NEGATIVE) Urine RBC None seen (0-5/HPF) Urine WBC None seen (0-5/HPF) Ur Squamous Epith Cells 0-1 /hpf Urine Bacteria None seen (None) Ur Culture Indicated? Cult not indicated Micro UA Comment Not Reportable Imaging Data CT scan - abdomen: Radiologist's impression: [place] [address] CT Scan Report Signed Patient: Sid Raymundo LMR#: [id number] : 1970Acct:[id number] Age/Sex: 47 / MDate of Service: 01/09/18 Loc: ED Accession Number: [id number] Procedure: CT kidney ureter bladder (KUB) Ordering Provider: Angel Terry PROCEDURE: CT KIDNEY URETER BLADDER (KUB) INDICATIONS: Difficulty in urination with dysuria and testicular pain TECHNIQUE: Noncontrast 5 mm thick sections acquired from the diaphragms to the symphysis. 5 mm thick coronal and sagittal reformats were then performed. For radiation dose reduction, the following was used: automated exposure control, adjustment of mA and/or kV according to patient size. COMPARISON: [facility], CT, CT ABDOMEN PELVIS W CON, 08/13/2017, 14:36. FINDINGS: Image quality: Excellent. Lung bases: Lung bases are clear. Heart size is normal. Mitral annulus calcifications noted. Urinary system: Both kidneys are normal in size. 1-2 mm nonobstructing stone noted in the midpole of the right kidney. There is a 4 cm left renal cyst. No hydronephrosis or perinephric fat stranding. Both ureters appear non-dilated throughout their expected courses. Bladder wall thickness is normal; no calcified bladder stones. Other solid organs: Liver is normal in size. Hepatic cysts are stable compared to prior examination. Gallbladder is within normal limits. Pancreas is normal in contours. Spleen is normal in size. No adrenal nodules. Peritoneum and bowel: Unenhanced bowel loops demonstrate normal wall thickness and caliber. Scattered colonic diverticuli without evidence of diverticulitis. No free fluid or air. The appendix is normal. Nodes and vessels: No retroperitoneal or mesenteric adenopathy by size criteria. Aorta and inferior vena cava are normal in caliber. Abdominal wall: No ventral hernias. Pelvis: No free pelvic fluid. No inguinal hernias or adenopathy. Bones: No suspicious bony lesions. No vertebral body compression fractures. Spine degenerative disc disease and facet arthropathy. L5-S1 fixation hardware noted. IMPRESSION: 1. 1-2 mm nonobstructing right renal stone. 2. No hydronephrosis. 3. Colonic diverticulosis without evidence of diverticulitis. 4. Hepatic cysts. 5. No free fluid or free air. 6. No dilated loops of bowel. Dictated by: Krysten Carter MD, PhD on 01/09/2018 at 16:52 Approved by: Krysten Carter MD, PhD on 01/09/2018 at 16:58 Testicular ultrasound : Radiologist's impression: [place] [id number] Ultrasound Report Signed Patient: Sid Raymundo LMR#: [id number] : 1970Acct:[id number] Age/Sex: 47 / MDate of Service: 01/09/18 Loc: ED Accession Number: [id number] Procedure: US scrotum Ordering Provider: Angel Terry PROCEDURE: US SCROTUM INDICATIONS: Pain with urination difficulty urinating and pain in testicl TECHNIQUE: Real-time scanning was performed of the scrotum and testicles, with image documentation. Color and pulse Doppler interrogation was performed of both testicles. COMPARISON: [facility], CT, CT KIDNEY URETER BLADDER (KUB), 01/09/2018, 16:32. FINDINGS: Right: Testicle is normal in size at 4.2 x 2.2 x 2.7 cm, and homogenous in echotexture. Epididymis is normal in overall size and morphology. No hydrocele or varicoceles. Overlying scrotal skin is normal in thickness. Left: Testicle is normal in size at 4.7 x 2.3 x 2.8 cm, and homogeneous in echotexture. Epididymis is normal in overall size and morphology. No hydrocele or varicoceles. Overlying scrotal skin is normal in thickness. Doppler: Color and pulse Doppler demonstrate normal and symmetric arterial flow in both testicles. IMPRESSION: Unremarkable testicular ultrasound. No evidence of testicular mass, epididymal orchitis, or testicular torsion. Dictated by: John Kelly M.D. on 01/09/2018 at 15:59 Approved by: John Kelly M.D. on 01/09/2018 at 16:02 [facility] Narrative Medical decision making narrative: Laboratory results today were unremarkable. Urinalysis was negative for urinary tract infection. Urine culture is ordered to double check to make sure no growth. GC and chlamydia was obtained yesterday and was negative. KUB CT was obtained and was negative for any acute findings. Ultrasound of the testicular region was obtained was negative for any acute findings. Discussed case with Urology at who recommends [id number] Tylenol or Motrin for discomfort follow up with primary care provider next few days return emergency room for any worsening symptoms. No other treatment is recommended. <Holli Leonard, - Last Filed: 01/10/18 18:44> Lab Data Lab Results 01/09/18 01/09/18 01/09/18 Range/Units 15:35 16:46 16:46 WBC 5.1 (4.5-11.0) X10^3/uL RBC 4.46 L (4.5-5.9) X10^6/uL Hgb 13.3 L (13.5-17.5) g/dL Hct 40.3 L (41-53) % MCV 90.3 (80-100) fL MCH 29.7 (26-34) PG MCHC 32.9 (30-36) % RDW 14.4 (11.6-14.8) % Plt Count 248 (150-400) X10^3/uL Neut % (Auto) 62.9 (50-75) % Lymph % (Auto) 28.9 (25-40) % [place] % (Auto) 6.7 (3-14) % Eos % (Auto) 0.7 L (2-4) % Baso % (Auto) 0.8 (0-2) % Neut # (Auto) 3200 (3092-7556) /uL Sodium 146 H (137-145) mmol/L Potassium 4.2 (3.4-5.1) mmol/L Chloride 112 H (98-107) mmol/L Carbon Dioxide 17 L (22-32) mmol/L BUN 11 (9-20) mg/dL Creatinine 1.10 (0.66-1.25) mg/dL Estimated GFR > 60.0 (>60) mL/min BUN/Creatinine Ratio 10.0 (6-22) Glucose 90 (70-100) mg/dL Calcium 9.4 (8.4-10.2) mg/dL Total Bilirubin 0.4 (0.2-1.3) mg/dL AST 19 (17-59) IU/L ALT 12 L (21-72) IU/L Alkaline Phosphatase 87 (38-126) U/L Total Protein 7.5 (6.3-8.2) g/dL Albumin 4.6 (3.5-5.0) g/dL Globulin 2.9 (1.7-4.1) g/dL Albumin/Globulin Ratio 1.6 (1.0-2.8) Urine Color Yellow Urine Appearance Clear Urine pH 6.0 (4.5-8.0) Ur Specific [place] <=1.005 (1.000-1.035) Urine Protein Negative (Negative) Urine Glucose (UA) Negative (Normal) g/dL Urine Ketones Negative (NEGATIVE) Urine Occult Blood Negative (Negative) Urine Nitrate Negative (Negative) Urine Bilirubin Negative (NEGATIVE) Urine Urobilinogen 0.2 (0.2) E.U./dL Ur Leukocyte Esterase Negative (NEGATIVE) Urine RBC None seen (0-5/HPF) Urine WBC None seen (0-5/HPF) Ur Squamous Epith Cells 0-1 /hpf Urine Bacteria None seen (None) Ur Culture Indicated? Cult not indicated Micro UA Comment Not Reportable Discharge Plan Departure Patient Disposition: Home Clinical Impression: Dysuria Discharge Date/Time: 01/09/18 18:53 Interventions: ED Discharge Assessment Last Done: 01/09/18 18:53 Instructions: DI for Dysuria -- Adult Activity Restrictions/Additional Instructions: Laboratory results and imaging today were unremarkable. Bladder scan shows no urine after emptying her bladder. Recommend plenty of fluids to ensure that your urine is not to concentrated as this can cause pain with urination. Use [id number] Tylenol as needed for discomfort. Follow up with her primary care provider in the next few days for re-evaluation. For any worsening symptoms return to the emergency room. Prescriptions: No Action levetiracetam [Keppra] 1,000 MG tablet 2,000 mg PO BID Qty: 0 RF: 0 valacyclovir 1,000 MG tablet 1,000 mg PO QPM RF: 0 estradiol 2 mg tablet 2 mg PO DAILY RF: 0 topiramate 200 mg tablet 200 mg PO BID RF: 0 quetiapine [Seroquel] 100 mg tablet 100 mg PO BEDTIME RF: 0 Referrals: Inocencio Keenan MD [Primary Care Provider] - <Holli Leonard DO - Last Filed: 01/10/18 18:44> Cosign ED Attending Gloria Attestation: I was immediately available in the department for consultation. Documentation has been reviewed. I agree with assessment and plan.
--- NOTE | 2018-01-09 15:27 | DI.US.S_ITS ---
PROCEDURE: US SCROTUM INDICATIONS: Pain with urination difficulty urinating and pain in testicl TECHNIQUE: Real-time scanning was performed of the scrotum and testicles, with image documentation. Color and pulse Doppler interrogation was performed of both testicles. COMPARISON: [facility], CT, CT KIDNEY URETER BLADDER (KUB), 01/09/2018, 16:32. FINDINGS: Right: Testicle is normal in size at 4.2 x 2.2 x 2.7 cm, and homogenous in echotexture. Epididymis is normal in overall size and morphology. No hydrocele or varicoceles. Overlying scrotal skin is normal in thickness. Left: Testicle is normal in size at 4.7 x 2.3 x 2.8 cm, and homogeneous in echotexture. Epididymis is normal in overall size and morphology. No hydrocele or varicoceles. Overlying scrotal skin is normal in thickness. Doppler: Color and pulse Doppler demonstrate normal and symmetric arterial flow in both testicles. IMPRESSION: Unremarkable testicular ultrasound. No evidence of testicular mass, epididymal orchitis, or testicular torsion. Dictated by: John Kelly M.D. on 01/09/2018 at 15:59 Approved by: John Kelly M.D. on 01/09/2018 at 16:02
[2018-01-09 15:47] LABS: Bacteria Urine None Seen; RBC Urine None Seen (0-5/HPF); WBC Urine None Seen (0-5/HPF)
[2018-01-09 15:49] LABS: Appearance Urine UA CLEAR; Bilirubin Urine UA NEGATIVE (NEGATIVE); Color Urine UA YELLOW; Glucose Urine UA NEGATIVE (Normal); Ketones Urine UA NEGATIVE (NEGATIVE); Leukocyte Esterase Urine UA NEGATIVE (NEGATIVE); Nitrite Urine UA NEGATIVE (Negative); Occult Blood Urine UA NEGATIVE (Negative); Protein Urine UA NEGATIVE (Negative); Specific Gravity Urine UA <=1.005 (1.000-1.035); Urobilinogen Urine UA 0.2 E.U./dL (0.2)
[2018-01-09 15:57] LABS: Squamous Epithelial Cell Urine 0-1 /HPF
[2018-01-09 15:58] LABS: Culture Indicated Urine Cult Not Indicated
[2018-01-09 16:00] VITALS: BP 124/82; PULSE 54; O2SAT 100
--- NOTE | 2018-01-09 16:19 | DI.CT.S_ITS ---
PROCEDURE: CT KIDNEY URETER BLADDER (KUB) INDICATIONS: Difficulty in urination with dysuria and testicular pain TECHNIQUE: Noncontrast 5 mm thick sections acquired from the diaphragms to the symphysis. 5 mm thick coronal and sagittal reformats were then performed. For radiation dose reduction, the following was used: automated exposure control, adjustment of mA and/or kV according to patient size. COMPARISON: [facility], CT, CT ABDOMEN PELVIS W CON, 08/13/2017, 14:36. FINDINGS: Image quality: Excellent. Lung bases: Lung bases are clear. Heart size is normal. Mitral annulus calcifications noted. Urinary system: Both kidneys are normal in size. 1-2 mm nonobstructing stone noted in the midpole of the right kidney. There is a 4 cm left renal cyst. No hydronephrosis or perinephric fat stranding. Both ureters appear non-dilated throughout their expected courses. Bladder wall thickness is normal; no calcified bladder stones. Other solid organs: Liver is normal in size. Hepatic cysts are stable compared to prior examination. Gallbladder is within normal limits. Pancreas is normal in contours. Spleen is normal in size. No adrenal nodules. Peritoneum and bowel: Unenhanced bowel loops demonstrate normal wall thickness and caliber. Scattered colonic diverticuli without evidence of diverticulitis. No free fluid or air. The appendix is normal. Nodes and vessels: No retroperitoneal or mesenteric adenopathy by size criteria. Aorta and inferior vena cava are normal in caliber. Abdominal wall: No ventral hernias. Pelvis: No free pelvic fluid. No inguinal hernias or adenopathy. Bones: No suspicious bony lesions. No vertebral body compression fractures. Spine degenerative disc disease and facet arthropathy. L5-S1 fixation hardware noted. IMPRESSION: 1. 1-2 mm nonobstructing right renal stone. 2. No hydronephrosis. 3. Colonic diverticulosis without evidence of diverticulitis. 4. Hepatic cysts. 5. No free fluid or free air. 6. No dilated loops of bowel. Dictated by: Krysten Carter MD, PhD on 01/09/2018 at 16:52 Approved by: Krysten Carter MD, PhD on 01/09/2018 at 16:58
[2018-01-09 16:54] LABS: Add Manual Diff / Slide Review NO; Basophils Percent Auto 0.8 % (0-2); Eosinophils Percent Auto 0.7 % (2-4); Hematocrit 40.3 % (41-53); Hemoglobin 13.3 g/dL (13.5-17.5); Lymphocytes Percent Auto 28.9 % (25-40); Mean Corpuscular HGB Conc 32.9 % (30-36); Mean Corpuscular Hemoglobin 29.7 PG (26-34); Mean Corpuscular Volume 90.3 fL (80-100); Monocytes Percent Auto 6.7 % (3-14); Neutrophils Absolute Auto 3200 /uL (3000-5900); Neutrophils Percent Auto 62.9 % (50-75); Platelet Count 248 X10^3/uL (150-400); Red Blood Cell Count 4.46 X10^6/uL (4.5-5.9); Red Cell Distribution Width 14.4 % (11.6-14.8); White Blood Cell Count 5.1 X10^3/uL (4.5-11.0)
[2018-01-09 17:12] LABS: Alanine Aminotransferase 12 IU/L (21-72); Albumin 4.6 g/dL (3.5-5.0); Albumin Globulin Ratio 1.6 (1.0-2.8); Alkaline Phosphatase 87 U/L (38-126); Aspartate Aminotransferase 19 IU/L (17-59); Bilirubin Total 0.4 mg/dL (0.2-1.3); Blood Urea Nitrogen 11 mg/dL (9-20); Calcium 9.4 mg/dL (8.4-10.2); Carbon Dioxide 17 mmol/L (22-32); Chloride 112 mmol/L (98-107); Estimated Glomerular Filt Rate > 60.0 mL/min (>60); Globulin 2.9 g/dL (1.7-4.1); Glucose 90 mg/dL (70-100); HEMOLYSIS < 15 (0-50); Potassium 4.2 mmol/L (3.4-5.1); Sodium 146 mmol/L (137-145); Total Protein 7.5 g/dL (6.3-8.2)
[2018-01-09 18:00] VITALS: BP 129/90; PULSE 63; O2SAT 100
--- NOTE | 2018-01-09 18:30 | ED_ITS ---
HPI - Male Genitourinary <MITCHEL Mike - Last Filed: 01/09/18 22:35> General Chief complaint: Urogenital-Male Stated complaint: UNABLE TO URINATE Time Seen by Provider: 01/09/18 15:01 Source: patient Mode of arrival: ambulatory Limitations: no limitations History of Present Illness HPI Narrative: 47-year-old male with history of a mitral valve prolapse that is congenital and is a former smoker here for complaint of having dysuria and difficulty in urinating over the past several days. He was seen in the walk-in clinic yesterday and had a negative urine for urinary tract infection. He reports having pain into the suprapubic region he also has pain into his testicle area. He denies any rectal pain he denies any fevers or chills. Positive p.o. intake no nausea vomiting. He denies any penile discharge. He denies any sexual partners Related Data Home Medications Medication Instructions Recorded Confirmed levetiracetam [Keppra] 2,000 mg PO BID #0 04/13/16 01/09/18 valacyclovir 1,000 mg PO QPM 11/12/17 01/09/18 estradiol 2 mg PO DAILY 01/09/18 quetiapine [Seroquel] 100 mg PO BEDTIME 01/09/18 01/09/18 topiramate 200 mg PO BID 01/09/18 01/09/18 Allergies Allergy/AdvReac Type Severity Reaction Status Date / Time diazepam Allergy Severe TACHYCARDIA Verified 01/09/18 15:12 strawberry Allergy Severe ANAPHYLAXIS Verified 01/09/18 15:12 trazodone Allergy Intermediate SEIZURE Verified 01/09/18 15:12 amitriptyline [AMITRIPTYLINE] Allergy Unknown Verified 01/09/18 15:12 nortriptyline [NORTRIPTYLINE] Allergy Unknown Verified 01/09/18 15:12 haloperidol AdvReac Severe JACKED ME Verified 01/09/18 15:12 UP Review of Systems <MITCHEL Mike - Last Filed: 01/09/18 22:35> Constitutional Denies chills, Denies fever(s), Denies lethargy and Denies weakness Eyes Denies change in vision, Denies eye discharge, Denies irritation and Denies loss of vision ENT Ears, Nose, Mouth, and Throat: Denies change in voice, Denies neck pain and Denies sore throat Cardiovascular Denies chest pain, Denies irregular heart rhythm, Denies lightheadedness, Denies palpitations, Denies dyspnea, Denies dyspnea on exertion and Denies orthopnea Respiratory Denies cough, Denies dyspnea, Denies dyspnea on exertion and Denies wheezing Gastrointestinal Gastrointestinal: Denies abdominal pain, Denies change in bowel habits, Denies diarrhea, Denies nausea and Denies vomiting Genitourinary Comments: Dysuria with testicular pain and suprapubic pain. Also difficulty in urination Musculoskeletal Denies neck pain Integumentary/Breasts Denies pruritus, Denies erythema, Denies rash and Denies wounds Neurologic Denies confusion, Denies loss of vision and Denies weakness Psychiatric Denies anxiety, Denies confusion, Denies depression, Denies homicidal ideation and Denies suicidal ideation Endocrine Denies palpitations Hematologic/Lymphatic Denies easy bruising Allergic/Immunologic Denies wheezing Exam <MITCHEL Mike - Last Filed: 01/09/18 22:35> Initial Vital Signs Initial Vital Signs: Vital Signs Temperature 98.5 F 01/09/18 15:00 Pulse Rate 83 01/09/18 15:00 Respiratory Rate 14 01/09/18 15:00 Blood Pressure 138/95 H 01/09/18 15:00 Pulse Oximetry 96 01/09/18 15:00 Const General: cooperative and well developed Nutritional Appearance: well nourished Orientation: alert, awake, oriented x3 and not confused [facility] Mouth: oral mucosae normal and moist mucous membranes Eyes Conjunctivae: conjunctivae normal Sclera: sclerae normal Pupils: PERRL EOM: EOM intact bilaterally Resp Effort & Inspection: normal respiratory effort, able to speak in complete sentences, no respiratory distress and no use of accessory muscles Auscultation: clear to auscultation bilaterally, no rales, no rhonchi and no wheezes Cardio Rate: regular rate Rhythm: regular rhythm Heart Sounds: no click, no gallops, no murmurs and no rubs GI Inspection: non-distended Palpation: soft, no hepatosplenomegaly, No guarding, No pulsatile mass and tender (Tenderness in suprapubic region) Auscultation: normal bowel sounds Rectal Exam: normal sphincter tone, prostate normal and hemorrhoids General: No CVA tenderness Penis: normal penis Meatus: meatus normal Scrotum: scrotum normal Testes: normal, epididymal tenderness, no testicular mass and testicular tenderness bilaterally Other: No CVA tenderness Back/Spine/Pelvis Back: No CVA tenderness Cervical Spine: cervical ROM normal and No pain with cervical ROM Thoracic/Lumbar Spine: thoracic and lumbar spine normal to inspection Skin General: no rashes or lesions noted, No jaundice and No petechiae Neuro General: alert, oriented x3, gait normal and no focal motor deficits Speech: speech normal <Holli Leonard DO - Last Filed: 01/10/18 18:44> Initial Vital Signs Initial Vital Signs: Vital Signs Temperature 98.5 F 01/09/18 15:00 Pulse Rate 83 01/09/18 15:00 Respiratory Rate 14 01/09/18 15:00 Blood Pressure 138/95 H 01/09/18 15:00 Pulse Oximetry 96 01/09/18 15:00 Course <MITCHEL Mike - Last Filed: 01/09/18 22:35> Orders Ordered: ED Orders 01/09/18 15:27 US scrotum Stat 01/09/18 15:35 UA Complete [Urinalysis and Microscopic] Stat 01/09/18 16:19 CT kidney ureter bladder (KUB) Stat 01/09/18 16:46 Complete Blood Count AUTO DIFF Stat Comprehensive Metabolic Panel Stat Vital Signs - 8 hr 01/09/18 15:00 01/09/18 16:00 01/09/18 18:00 Temperature 98.5 F Pulse Rate 83 54 L 63 Respiratory Rate 14 Blood Pressure 138/95 H Blood Pressure [Right Arm] 124/82 129/90 Pulse Oximetry 96 100 100 01/09/18 18:53 Temperature Pulse Rate 59 L Respiratory Rate 15 Blood Pressure 119/89 Blood Pressure [Right Arm] Pulse Oximetry 97 <Holli Leonard DO - Last Filed: 01/10/18 18:44> Orders Ordered: ED Orders 01/09/18 15:27 US scrotum Stat 01/09/18 15:35 UA Complete [Urinalysis and Microscopic] Stat 01/09/18 16:19 CT kidney ureter bladder (KUB) Stat 01/09/18 16:46 Complete Blood Count AUTO DIFF Stat Comprehensive Metabolic Panel Stat Vital Signs - 8 hr 01/09/18 15:00 01/09/18 16:00 11/28/18 18:00 Temperature 98.5 F Pulse Rate 83 54 L 63 Respiratory Rate 14 Blood Pressure 138/95 H Blood Pressure [Right Arm] 124/82 129/90 Pulse Oximetry 96 100 100 01/09/18 18:53 Temperature Pulse Rate 59 L Respiratory Rate 15 Blood Pressure 119/89 Blood Pressure [Right Arm] Pulse Oximetry 97 MDM - Male Genitourinary <MITCHEL Mike - Last Filed: 01/09/18 22:35> Lab Data Result diagrams: 01/09/18 16:46 01/09/18 16:46 Lab Results 01/09/18 01/09/18 01/09/18 Range/Units 15:35 16:46 16:46 WBC 5.1 (4.5-11.0) X10^3/uL RBC 4.46 L (4.5-5.9) X10^6/uL Hgb 13.3 L (13.5-17.5) g/dL Hct 40.3 L (41-53) % MCV 90.3 (80-100) fL MCH 29.7 (26-34) PG MCHC 32.9 (30-36) % RDW 14.4 (11.6-14.8) % Plt Count 248 (150-400) X10^3/uL Neut % (Auto) 62.9 (50-75) % Lymph % (Auto) 28.9 (25-40) % [place] % (Auto) 6.7 (3-14) % Eos % (Auto) 0.7 L (2-4) % Baso % (Auto) 0.8 (0-2) % Neut # (Auto) 3200 (3842-7934) /uL Sodium 146 H (137-145) mmol/L Potassium 4.2 (3.4-5.1) mmol/L Chloride 112 H (98-107) mmol/L Carbon Dioxide 17 L (22-32) mmol/L BUN 11 (9-20) mg/dL Creatinine 1.10 (0.66-1.25) mg/dL Estimated GFR > 60.0 (>60) mL/min BUN/Creatinine Ratio 10.0 (6-22) Glucose 90 (70-100) mg/dL Calcium 9.4 (8.4-10.2) mg/dL Total Bilirubin 0.4 (0.2-1.3) mg/dL AST 19 (17-59) IU/L ALT 12 L (21-72) IU/L Alkaline Phosphatase 87 (38-126) U/L Total Protein 7.5 (6.3-8.2) g/dL Albumin 4.6 (3.5-5.0) g/dL Globulin 2.9 (1.7-4.1) g/dL Albumin/Globulin Ratio 1.6 (1.0-2.8) Urine Color Yellow Urine Appearance Clear Urine pH 6.0 (4.5-8.0) Ur Specific [place] <=1.005 (1.000-1.035) Urine Protein Negative (Negative) Urine Glucose (UA) Negative (Normal) g/dL Urine Ketones Negative (NEGATIVE) Urine Occult Blood Negative (Negative) Urine Nitrate Negative (Negative) Urine Bilirubin Negative (NEGATIVE) Urine Urobilinogen 0.2 (0.2) E.U./dL Ur Leukocyte Esterase Negative (NEGATIVE) Urine RBC None seen (0-5/HPF) Urine WBC None seen (0-5/HPF) Ur Squamous Epith Cells 0-1 /hpf Urine Bacteria None seen (None) Ur Culture Indicated? Cult not indicated Micro UA Comment Not Reportable Imaging Data CT scan - abdomen: Radiologist's impression: [place] [address] CT Scan Report Signed Patient: Sid Raymundo LMR#: [id number] : 1970Acct:[id number] Age/Sex: 47 / MDate of Service: 01/09/18 Loc: ED Accession Number: [id number] Procedure: CT kidney ureter bladder (KUB) Ordering Provider: Angel Terry PROCEDURE: CT KIDNEY URETER BLADDER (KUB) INDICATIONS: Difficulty in urination with dysuria and testicular pain TECHNIQUE: Noncontrast 5 mm thick sections acquired from the diaphragms to the symphysis. 5 mm thick coronal and sagittal reformats were then performed. For radiation dose reduction, the following was used: automated exposure control, adjustment of mA and/or kV according to patient size. COMPARISON: [facility], CT, CT ABDOMEN PELVIS W CON, 08/13/2017, 14:36. FINDINGS: Image quality: Excellent. Lung bases: Lung bases are clear. Heart size is normal. Mitral annulus calcifications noted. Urinary system: Both kidneys are normal in size. 1-2 mm nonobstructing stone noted in the midpole of the right kidney. There is a 4 cm left renal cyst. No hydronephrosis or perinephric fat stranding. Both ureters appear non-dilated throughout their expected courses. Bladder wall thickness is normal; no calcified bladder stones. Other solid organs: Liver is normal in size. Hepatic cysts are stable compared to prior examination. Gallbladder is within normal limits. Pancreas is normal in contours. Spleen is normal in size. No adrenal nodules. Peritoneum and bowel: Unenhanced bowel loops demonstrate normal wall thickness and caliber. Scattered colonic diverticuli without evidence of diverticulitis. No free fluid or air. The appendix is normal. Nodes and vessels: No retroperitoneal or mesenteric adenopathy by size criteria. Aorta and inferior vena cava are normal in caliber. Abdominal wall: No ventral hernias. Pelvis: No free pelvic fluid. No inguinal hernias or adenopathy. Bones: No suspicious bony lesions. No vertebral body compression fractures. Spine degenerative disc disease and facet arthropathy. L5-S1 fixation hardware noted. IMPRESSION: 1. 1-2 mm nonobstructing right renal stone. 2. No hydronephrosis. 3. Colonic diverticulosis without evidence of diverticulitis. 4. Hepatic cysts. 5. No free fluid or free air. 6. No dilated loops of bowel. Dictated by: Krysten Carter MD, PhD on 01/09/2018 at 16:52 Approved by: Krysetn Carter MD, PhD on 01/09/2018 at 16:58 Testicular ultrasound : Radiologist's impression: [place] [id number] Ultrasound Report Signed Patient: Sid Raymundo LMR#: [id number] : 1970Acct:[id number] Age/Sex: 47 / MDate of Service: 01/09/18 Loc: ED Accession Number: [id number] Procedure: US scrotum Ordering Provider: Angel Terry PROCEDURE: US SCROTUM INDICATIONS: Pain with urination difficulty urinating and pain in testicl TECHNIQUE: Real-time scanning was performed of the scrotum and testicles, with image documentation. Color and pulse Doppler interrogation was performed of both testicles. COMPARISON: [facility], CT, CT KIDNEY URETER BLADDER (KUB), 01/09/2018, 16 :32. FINDINGS: Right: Testicle is normal in size at 4.2 x 2.2 x 2.7 cm, and homogenous in echotexture. Epididymis is normal in overall size and morphology. No hydrocele or varicoceles. Overlying scrotal skin is normal in thickness. Left: Testicle is normal in size at 4.7 x 2.3 x 2.8 cm, and homogeneous in echotexture. Epididymis is normal in overall size and morphology. No hydrocele or varicoceles. Overlying scrotal skin is normal in thickness. Doppler: Color and pulse Doppler demonstrate normal and symmetric arterial flow in both testicles. IMPRESSION: Unremarkable testicular ultrasound. No evidence of testicular mass , epididymal orchitis, or testicular torsion. Dictated by: John Kelly M.D. on 01/09/2018 at 15:59 Approved by: John Kelly M.D. on 01/09/2018 at 16:02 [facility] Narrative Medical decision making narrative: Laboratory results today were unremarkable. Urinalysis was negative for urinary tract infection. Urine culture is ordered to double check to make sure no growth. GC and chlamydia was obtained yesterday and was negative. KUB CT was obtained and was negative for any acute findings. Ultrasound of the testicular region was obtained was negative for any acute findings. Discussed case with Urology at who recommends over-the- counter Tylenol or Motrin for discomfort follow up with primary care provider next few days return emergency room for any worsening symptoms. No other treatment is recommended. <Holli Leonard, - Last Filed: 01/10/18 18:44> Lab Data Lab Results 01/09/18 01/09/18 01/09/18 Range/Units 15:35 16:46 16:46 WBC 5.1 (4.5-11.0) X10^3/uL RBC 4.46 L (4.5-5.9) X10^6/uL Hgb 13.3 L (13.5-17.5) g/dL Hct 40.3 L (41-53) % MCV 90.3 (80-100) fL MCH 29.7 (26-34) PG MCHC 32.9 (30-36) % RDW 14.4 (11.6-14.8) % Plt Count 248 (150-400) X10^3/uL Neut % (Auto) 62.9 (50-75) % Lymph % (Auto) 28.9 (25-40) % [place] % (Auto) 6.7 (3-14) % Eos % (Auto) 0.7 L (2-4) % Baso % (Auto) 0.8 (0-2) % Neut # (Auto) 3200 (3860-1038) /uL Sodium 146 H (137-145) mmol/L Potassium 4.2 (3.4-5.1) mmol/L Chloride 112 H (98-107) mmol/L Carbon Dioxide 17 L (22-32) mmol/L BUN 11 (9-20) mg/dL Creatinine 1.10 (0.66-1.25) mg/dL Estimated GFR > 60.0 (>60) mL/min BUN/Creatinine Ratio 10.0 (6-22) Glucose 90 (70-100) mg/dL Calcium 9.4 (8.4-10.2) mg/dL Total Bilirubin 0.4 (0.2-1.3) mg/dL AST 19 (17-59) IU/L ALT 12 L (21-72) IU/L Alkaline Phosphatase 87 (38-126) U/L Total Protein 7.5 (6.3-8.2) g/dL Albumin 4.6 (3.5-5.0) g/dL Globulin 2.9 (1.7-4.1) g/dL Albumin/Globulin Ratio 1.6 (1.0-2.8) Urine Color Yellow Urine Appearance Clear Urine pH 6.0 (4.5-8.0) Ur Specific [place] <=1.005 (1.000-1.035) Urine Protein Negative (Negative) Urine Glucose (UA) Negative (Normal) g/dL Urine Ketones Negative (NEGATIVE) Urine Occult Blood Negative (Negative) Urine Nitrate Negative (Negative) Urine Bilirubin Negative (NEGATIVE) Urine Urobilinogen 0.2 (0.2) E.U./dL Ur Leukocyte Esterase Negative (NEGATIVE) Urine RBC None seen (0-5/HPF) Urine WBC None seen (0-5/HPF) Ur Squamous Epith Cells 0-1 /hpf Urine Bacteria None seen (None) Ur Culture Indicated? Cult not indicated Micro UA Comment Not Reportable Discharge Plan Departure Patient Disposition: Home Clinical Impression: Dysuria Discharge Date/Time: 01/09/18 18:53 Interventions: ED Discharge Assessment Last Done: 01/09/18 18:53 Instructions: DI for Dysuria -- Adult Activity Restrictions/Additional Instructions: Laboratory results and imaging today were unremarkable. Bladder scan shows no urine after emptying her bladder. Recommend plenty of fluids to ensure that your urine is not to concentrated as this can cause pain with urination. Use [id number] Tylenol as needed for discomfort. Follow up with her primary care provider in the next few days for re-evaluation. For any worsening symptoms return to the emergency room. Prescriptions: No Action levetiracetam [Keppra] 1,000 MG tablet 2,000 mg PO BID Qty: 0 RF: 0 valacyclovir 1,000 MG tablet 1,000 mg PO QPM RF: 0 estradiol 2 mg tablet 2 mg PO DAILY RF: 0 topiramate 200 mg tablet 200 mg PO BID RF: 0 quetiapine [Seroquel] 100 mg tablet 100 mg PO BEDTIME RF: 0 Referrals: Inocencio Keenan MD [Primary Care Provider] - <Holli Leonard DO - Last Filed: 01/10/18 18:44> Cosign ED Attending Golria Attestation: I was immediately available in the department for consultation. Documentation has been reviewed. I agree with assessment and plan.
[2018-01-09 18:53] VITALS: BP 119/89; PULSE 59; RESP 15; O2SAT 97
== END 2018-01-09 18:53 | disposition home or self-care (01) ==
PROVIDERS: Emergency Provider Nurse Practitioner Family; Family Provider Internal Medicine Endocrinology, Diabetes & Metabolism; PCP Internal Medicine
DX: R30.0 Dysuria (principal)
CPT/HCPCS: 36415; 51798; 74176; 76870; 80053; 81001; 85025; 99283; 99284

== ENCOUNTER → 2018-01-31 12:32 | Outpatient (CLI) | payer MEDICARE, MEDICAID, SELFPAY ==
[2018-02-03 19:02] LABS: Levetiracetam Keppra 18.8 mcg/mL
== END ==
PROVIDERS: PCP Internal Medicine; Visit Provider Psychiatry & Neurology Neurology
DX: G40.909 Epilepsy, unspecified, not intractable, without status epilepticus (principal)
CPT/HCPCS: 36415; 80177; 80201

== ENCOUNTER 2018-03-27 15:45 | Emergency (ER) | payer MEDICARE, MEDICAID, SELFPAY ==
[2018-03-27 15:50] VITALS: BP 144/94; PULSE 84; RESP 17; TEMP 36.2; O2SAT 100; BMI 27.6
[2018-03-27 16:16] LABS: Bacteria Urine None Seen; RBC Urine None Seen (0-5/HPF); WBC Urine None Seen (0-5/HPF)
--- NOTE | 2018-03-27 16:19 | DI.RAD.S_ITS ---
PROCEDURE: XR CHEST 2V INDICATIONS: cough TECHNIQUE: 2 views of the chest were acquired. COMPARISON: None. FINDINGS: Surgical changes and devices: None. Lungs and pleura: Lungs are clear. No pleural effusions or pneumothorax. Mediastinum: Mediastinal contours are normal. Heart size is normal. Bones and chest wall: No suspicious bony abnormalities. Soft tissues appear unremarkable. IMPRESSION: No acute cardiopulmonary disease process. Dictated by: Krysten Carter MD, PhD on 03/27/2018 at 16:33 Approved by: Krysten Carter MD, PhD on 03/27/2018 at 16:33
[2018-03-27 16:22] LABS: Culture Indicated Urine Cult Not Indicated; Urine Comments Microscopic Normal
[2018-03-27 16:52] LABS: Influenza A and B by PCR Rapid Negative (Negative)
--- NOTE | 2018-03-27 17:06 | ED.URI ---
HPI - URI/Sore Throat General Chief Complaint: Upper Respiratory Symptoms Stated Complaint: cough,congestion,bloody nose Time Seen by Provider: 03/27/18 16:11 Source: patient Mode of arrival: ambulatory Limitations: no limitations History of Present Illness HPI Narrative: 48-year-old male, nonsmoker with history of epilepsy presents for evaluation of 2 weeks of upper respiratory complaints including runny nose, nasal congestion and cough. He has had no fever or chills. He denies chest pain. He denies any purulent sputum. He does feel a bit achy in generally unwell. He denies any nausea or vomiting. He has had multiple sick contacts but all of them seem to be better now MD Complaint: cough, sore throat, rhinorrhea and nasal congestion Onset (ago): week(s) Duration: constant Severity: mild Relieving factors: nothing Exacerbating factors: nothing Description of mucous: clear Able to tolerate fluids by mouth: Yes Context: sick contacts Treatments prior to arrival: none Related Data Home Medications Medication Instructions Recorded Confirmed levetiracetam [Keppra] 2,000 mg PO BID #0 04/13/16 03/27/18 valacyclovir 1,000 mg PO QPM 11/12/17 03/27/18 topiramate 200 mg PO BID 01/09/18 03/27/18 estradiol 2 mg PO DAILY 03/27/18 03/27/18 Previous Rx's Medication Instructions Recorded quetiapine 100 mg tablet 100 mg PO BEDTIME #90 tab 02/06/18 Allergies Allergy/AdvReac Type Severity Reaction Status Date / Time diazepam Allergy Severe TACHYCARDIA Verified 03/27/18 15:55 strawberry Allergy Severe ANAPHYLAXIS Verified 03/27/18 15:55 trazodone Allergy Intermediate SEIZURE Verified 03/27/18 15:55 amitriptyline [AMITRIPTYLINE] Allergy Unknown Verified 03/27/18 15:55 nortriptyline [NORTRIPTYLINE] Allergy Unknown Verified 03/27/18 15:55 haloperidol AdvReac Severe JACKED ME Verified 03/27/18 15:55 UP Review of Systems Constitutional Reports body ache(s), Reports chills, Reports fever(s), Denies lethargy and Denies weakness Eyes Denies change in vision, Denies eye discharge, Denies irritation and Denies loss of vision ENT Ears, Nose, Mouth, and Throat: Denies change in voice, Reports nasal congestion, Reports nasal discharge, Denies neck pain and Reports sore throat Cardiovascular Denies chest pain, Denies irregular heart rhythm, Denies lightheadedness, Denies palpitations, Denies dyspnea, Denies dyspnea on exertion and Denies orthopnea Respiratory Reports chest congestion, Reports cough, Denies dyspnea, Denies dyspnea on exertion and Denies wheezing Gastrointestinal Gastrointestinal: Denies abdominal pain, Denies change in bowel habits, Denies diarrhea, Denies nausea and Denies vomiting Genitourinary Denies hematuria, Denies flank pain, Denies urinary incontinence and Denies urinary urgency Musculoskeletal Denies neck pain Integumentary/Breasts Denies pruritus, Denies erythema, Denies rash and Denies wounds Neurologic Denies confusion, Denies loss of vision and Denies weakness Psychiatric Denies anxiety, Denies confusion, Denies depression, Denies homicidal ideation and Denies suicidal ideation Endocrine Denies palpitations Hematologic/Lymphatic Denies easy bruising Allergic/Immunologic Denies wheezing [facility] Medical History 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 Resting comfortably with a face mask in place EYES: Pupils are equal, round, and reactive to light and accommodation. Extraoccular muscles are intact bilaterally. There is no subconjunctival hemorrhage or exudate. ENT: clear nasal drainage bilaterally. Posterior pharynx drainage CHEST: Lungs are clear to auscultation bilaterally and free of wheezes, rales, or rhonchi. Heart rate is regular rhythm, there are no murmurs, clicks, rubs, or gallops. There is no chest wall tenderness. ABD: Abdomen is soft and nontender. There is no guarding or rebound. Bowel sounds are normal in all 4 quadrants. There is no mass or organomegaly. EXT: Full painless ROM of all extremities with no loss of sensation or strength. SKIN: Warm, pink, and dry. No erythema or rash Initial Vital Signs Initial Vital Signs: Vital Signs Temperature 97.1 F L 03/27/18 15:50 Pulse Rate 84 03/27/18 15:50 Respiratory Rate 17 03/27/18 15:50 Blood Pressure 144/94 H 03/27/18 15:50 Pulse Oximetry 100 03/27/18 15:50 Course Orders Ordered: ED Orders 03/27/18 16:10 Urine Microscopic Stat 03/27/18 16:19 XR chest 2V Stat 03/27/18 16:30 Influenza A and B by PCR Rapid Stat Vital Signs - 8 hr 03/27/18 15:50 03/27/18 17:23 Temperature 97.1 F L 98.2 F Pulse Rate 84 58 L Respiratory Rate 17 17 Blood Pressure 144/94 H Blood Pressure [Left Arm] 124/82 Pulse Oximetry 100 98 MDM - URI/Sore Throat Differential Diagnosis Differential diagnosis: Likely upper respiratory infection, sinusitis, viral infection, bronchitis, influenza and pharyngitis Medical Records Attestation: I reviewed the patient's medical records. Lab Data Attestation: I reviewed the patient's lab results. Lab Results 03/27/18 03/27/18 Range/Units 16:10 16:30 Urine RBC None seen (0-5/HPF) Urine WBC None seen (0-5/HPF) Urine Bacteria None seen (None) Ur Culture Indicated? Cult not indicated Micro UA Comment Microscopic normal Influenza A & B (PCR) Negative (Negative) Urine Dip Bedside Urine Glucose Negative Bedside Urine Bilirubin - Negative Bedside Urine Ketone - Negative Urine Specific [place] 1.010 Bedside Urine Occult Blood - Negative Bedside Urine pH 6.0 Bedside Urine Protein - Negative Bedside Urine Urobilinogen - Negative Bedside Urine Nitrite + Positive Bedside Urine Leukocytes - Negative Esterase Imaging Data Chest x-ray: Radiologist's impression: [address] [address] XRay Report Signed Patient: Sid Raymundo LMR#: [id number] : 1970Acct:[id number] Age/Sex: 48 / MDate of Service: 03/27/18 Loc: ED Accession Number: [id number] Procedure: XR chest 2V Ordering Provider: Ian Hairston D.O. PROCEDURE: XR CHEST 2V INDICATIONS: cough TECHNIQUE: 2 views of the chest were acquired. COMPARISON: None. FINDINGS: Surgical changes and devices: None. Lungs and pleura: Lungs are clear. No pleural effusions or pneumothorax. Mediastinum: Mediastinal contours are normal. Heart size is normal. Bones and chest wall: No suspicious bony abnormalities. Soft tissues appear unremarkable. IMPRESSION: No acute cardiopulmonary disease process. Dictated by: Krysten Carter MD, PhD on 03/27/2018 at 16:33 Approved by: Krysten Carter MD, PhD on 03/27/2018 at 16:33 [facility] Narrative Medical decision making narrative: Patient has had vague and widespread upper respiratory symptoms For few weeks. Flu, viral upper respiratory infection and pneumonia are all considered. Flu considered less likely given negative swab. Pneumonia considered less likely given lack of productive cough, fever, or CXR findings. Return precautions discussed with patient and he has had his questions answered to his apparent satisfaction Discharge Plan Departure Patient Disposition: Home Clinical Impression: Upper respiratory virus Discharge Date/Time: 03/27/18 17:27 Interventions: ED Discharge Assessment Last Done: 03/27/18 17:26 Activity Restrictions/Additional Instructions: *You have been diagnosed with [ viral upper respiratory infection (no pneumonia/no flu) ] *What to do: *Take medications as directed:over the counter cough/cold medications *Follow up with your primary care provider in 2-3 days, call for an appointment. Let them know you were seen in the Emergency Department and that we ask that you be seen in follow up *Return to ER if you should have any new, worsening or concerning symptoms Prescriptions: No Action levetiracetam [Keppra] 1,000 MG tablet 2,000 mg PO BID Qty: 0 RF: 0 quetiapine [Seroquel] 100 mg tablet 100 mg PO BEDTIME Qty: 90 RF: 0 valacyclovir 1,000 MG tablet 1,000 mg PO QPM RF: 0 topiramate 200 mg tablet 200 mg PO BID RF: 0 estradiol 2 mg tablet 2 mg PO DAILY RF: 0 Referrals: Inocencio Keenan MD [Primary Care Provider] -
[2018-03-27 17:23] VITALS: BP 124/82; PULSE 58; RESP 17; TEMP 36.8; O2SAT 98
== END 2018-03-27 17:27 | disposition home or self-care (01) ==
PROVIDERS: Emergency Provider Emergency Medicine; PCP Internal Medicine
DX: J06.9 Acute upper respiratory infection, unspecified (principal)
CPT/HCPCS: 71046; 81003; 81015; 87400; 99282; 99284

== ENCOUNTER 2018-04-24 17:24 | Emergency (ER) | payer MEDICARE, MEDICAID, SELFPAY ==
[2018-04-24 17:27] VITALS: BP 139/86; PULSE 89; RESP 18; TEMP 36.4; O2SAT 98; BMI 29.2
--- NOTE | 2018-04-24 17:41 | DI.RAD.S_ITS ---
PROCEDURE: XR SHOULDER LT MIN 2V INDICATIONS: left shoulder felt pop, had surgery in past, hand feels funn TECHNIQUE: 3 views of the shoulder were acquired. COMPARISON: None. FINDINGS: Bones: No fractures or dislocations. No suspicious bony lesions. Visualized ribs appear intact. Moderate glenohumeral joint degeneration. Mild AC joint degeneration Soft tissues: No suspicious soft tissue calcifications. IMPRESSION: No fracture. Left shoulder joint degeneration as above Dictated by: Moo Lazo M.D. on 04/24/2018 at 18:16 Approved by: Moo Lazo M.D. on 04/24/2018 at 18:19
--- NOTE | 2018-04-24 20:56 | ED.UPPEXIN ---
HPI - Extremity Injury (Upper) <MITCHEL Mike - Last Filed: 04/24/18 22:45> General Chief Complaint: Extremity Injury, Upper Stated Complaint: STATES POPPED SURGICAL SHOULDER, NUMB,COLD HAND Time Seen by Provider: 04/24/18 17:41 Source: patient Mode of arrival: ambulatory Limitations: no limitations History of Present Illness HPI narrative: 48-year-old male with history of shoulder dislocations and is a nonsmoker here for complaint of pain to his left shoulder. He reports that he has had Orthopedic surgery to that shoulder a few times to help with shoulder dislocations. He denies any trauma to the shoulder. He states that he was moving his shoulder and stretching this morning when he felt a pop. Shortly after this he felt pain into the shoulder area. After that he started feeling some tingling into his left arm. He is able to move his left arm with no complications. He does state that he feels that he he has some weakness to the left arm. In that he feels that it is cold. Pain is limited to the left shoulder area. He denies any other concerns or complaints this timeframe. He was concerned that it may be dislocated. Related Data Home Medications Medication Instructions Recorded Confirmed levetiracetam [Keppra] 2,000 mg PO BID #0 04/13/16 03/27/18 valacyclovir 1,000 mg PO QPM 11/12/17 03/27/18 topiramate 200 mg PO BID 01/09/18 03/27/18 estradiol 2 mg PO DAILY 03/27/18 03/27/18 Previous Rx's Medication Instructions Recorded quetiapine 100 mg tablet 100 mg PO BEDTIME #90 tab 02/06/18 Allergies Allergy/AdvReac Type Severity Reaction Status Date / Time diazepam Allergy Severe TACHYCARDIA Verified 03/27/18 15:55 strawberry Allergy Severe ANAPHYLAXIS Verified 03/27/18 15:55 trazodone Allergy Intermediate SEIZURE Verified 03/27/18 15:55 amitriptyline [AMITRIPTYLINE] Allergy Unknown Verified 03/27/18 15:55 nortriptyline [NORTRIPTYLINE] Allergy Unknown Verified 03/27/18 15:55 haloperidol AdvReac Severe JACKED ME Verified 03/27/18 15:55 UP Review of Systems <MITCHEL Mike - Last Filed: 04/24/18 22:45> Constitutional Denies chills, Denies fever(s), Denies lethargy and Denies weakness Eyes Denies change in vision, Denies eye discharge, Denies irritation and Denies loss of vision ENT Ears, Nose, Mouth, and Throat: Denies change in voice, Denies neck pain and Denies sore throat Cardiovascular Denies chest pain, Denies irregular heart rhythm, Denies lightheadedness, Denies palpitations, Denies dyspnea, Denies dyspnea on exertion and Denies orthopnea Respiratory Denies cough, Denies dyspnea, Denies dyspnea on exertion and Denies wheezing Gastrointestinal Gastrointestinal: Denies abdominal pain, Denies change in bowel habits, Denies diarrhea, Denies nausea and Denies vomiting Genitourinary Denies hematuria, Denies flank pain, Denies urinary incontinence and Denies urinary urgency Musculoskeletal Denies neck pain Comments: Left shoulder pain Integumentary/Breasts Denies pruritus, Denies erythema, Denies rash and Denies wounds Neurologic Denies confusion, Denies loss of vision and Denies weakness Psychiatric Denies anxiety, Denies confusion, Denies depression, Denies homicidal ideation and Denies suicidal ideation Endocrine Denies palpitations Hematologic/Lymphatic Denies easy bruising Allergic/Immunologic Denies wheezing PFSH <MITCHEL Mike - Last Filed: 04/24/18 22:45> Medical History 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) Disturbed concentration (Chronic) Lower back pain (Chronic) Seizure disorder (Chronic 10/21/10) Obstructive sleep apnea syndrome (Chronic 10/21/10) Mitral valve prolapse (Chronic 10/21/10) Headache (Chronic) Mitral valve prolapse (Chronic) Seizure (Chronic) Sleep apnea (Chronic) Dislocation, shoulder (Resolved) Surgical History H/O spinal fusion (Resolved) S/P Achilles tendon repair (Resolved) Social History marital status: unmarried,single lives independently: Yes occupational status: disabled Smoking Status: Former smoker alcohol intake: current substance use type: does not use Social History marital status: unmarried,single lives independently: Yes occupational status: disabled Smoking Status: Former smoker alcohol intake: current substance use type: does not use Exam <MITCHEL Mike - Last Filed: 04/24/18 22:45> Initial Vital Signs Initial Vital Signs: Vital Signs Temperature 97.5 F L 04/24/18 17:27 Pulse Rate 89 04/24/18 17:27 Respiratory Rate 18 04/24/18 17:27 Blood Pressure 139/86 04/24/18 17:27 Pulse Oximetry 98 04/24/18 17:27 Const General: cooperative and well developed Nutritional Appearance: well nourished Orientation: alert, awake, oriented x3 and not confused HENMD Mouth: oral mucosae normal and moist mucous membranes Eyes General: appearance normal, both eyes and all related structures Eyelids: eyelids normal Conjunctivae: conjunctivae normal Sclera: sclerae normal Pupils: PERRL EOM: EOM intact bilaterally Resp Effort & Inspection: normal respiratory effort, able to speak in complete sentences, no respiratory distress and no use of accessory muscles Auscultation: clear to auscultation bilaterally, no rales, no rhonchi and no wheezes Cardio Rate: regular rate Rhythm: regular rhythm Heart Sounds: no click, no gallops, no murmurs and no rubs Pulses: normal peripheral pulses Neuro General: alert, oriented x3, gait normal and no focal motor deficits Speech: speech normal Extrem Other: Left shoulder with no signs of trauma. No ecchymosis. No swelling. No deformities. Distal sensation is intact. Distal pulses are intact. Distal range of motion is intact. <Ian Hairston DO - Last Filed: 04/25/18 07:26> Initial Vital Signs Initial Vital Signs: Vital Signs Temperature 97.5 F L 04/24/18 17:27 Pulse Rate 89 04/24/18 17:27 Respiratory Rate 18 04/24/18 17:27 Blood Pressure 139/86 04/24/18 17:27 Pulse Oximetry 98 04/24/18 17:27 Course <MITCHEL Mike - Last Filed: 04/24/18 22:45> Orders Ordered: ED Orders 04/24/18 17:41 XR shoulder LT min 2V Stat Vital Signs - 8 hr 04/24/18 17:27 04/24/18 22:17 Temperature 97.5 F L Pulse Rate 89 80 Respiratory Rate 18 18 Blood Pressure 139/86 130/80 Pulse Oximetry 98 <Ian Hariston DO - Last Filed: 04/25/18 07:26> Orders Ordered: ED Orders 04/24/18 17:41 XR shoulder LT min 2V Stat Vital Signs - 8 hr 04/24/18 17:27 04/24/18 22:17 Temperature 97.5 F L Pulse Rate 89 80 Respiratory Rate 18 18 Blood Pressure 139/86 130/80 Pulse Oximetry 98 [facility] - Extremity Injury (Upper) <MITCHEL Mike - Last Filed: 04/24/18 22:45> Imaging Data Left shoulder: Radiologist's impression: [address] [address] XRay Report Signed Patient: Sid Raymundo LMR#: [id number] : 1970Acct:[id number] Age/Sex: 48 / MDate of Service: 04/24/18 Loc: ED Accession Number: [id number] Procedure: XR shoulder LT min 2V Ordering Provider: Naima Martinez D.O. PROCEDURE: XR SHOULDER LT MIN 2V INDICATIONS: left shoulder felt pop, had surgery in past, hand feels funn TECHNIQUE: 3 views of the shoulder were acquired. COMPARISON: None. FINDINGS: Bones: No fractures or dislocations. No suspicious bony lesions. Visualized ribs appear intact. Moderate glenohumeral joint degeneration. Mild AC joint degeneration Soft tissues: No suspicious soft tissue calcifications. IMPRESSION: No fracture. Left shoulder joint degeneration as above Dictated by: Moo Lazo M.D. on 04/24/2018 at 18:16 Approved by: Moo Lazo M.D. on 04/24/2018 at 18:19 [facility] Narrative Medical decision making narrative: x-ray of the left shoulder was obtained was negative for any acute dislocation or fracture. sinus symptoms presents sprain to the left shoulder. Distal CMS is intact to the left shoulder. [id number] Tylenol as needed for discomfort. Follow up with primary care provider. Return emergency room for any worsening symptoms. Discharge Plan Departure Patient Disposition: Home Clinical Impression: Sprain of left shoulder Qualifiers: Encounter type: initial encounter Shoulder sprain type: unspecified sprain Qualified Code(s): S43.402A - Unspecified sprain of left shoulder joint, initial encounter Discharge Date/Time: 04/24/18 22:18 Interventions: ED Discharge Assessment Last Done: 04/24/18 22:17 Instructions: DI for Shoulder Sprain Activity Restrictions/Additional Instructions: X-ray of the left shoulder was obtained and was negative for any dislocations or fractures. Signs symptoms presents as sprain to the left shoulder. Use [id number] Tylenol or Motrin as needed for any discomfort. Follow up with your primary care provider for re-evaluation next week. Rest area. For any worsening symptoms return to the emergency room. If continued symptoms may need to have advanced imaging such as MRI for further evaluation. Prescriptions: No Action levetiracetam [Keppra] 1,000 MG tablet 2,000 mg PO BID Qty: 0 RF: 0 quetiapine [Seroquel] 100 mg tablet 100 mg PO BEDTIME Qty: 90 RF: 0 valacyclovir 1,000 MG tablet 1,000 mg PO QPM RF: 0 topiramate 200 mg tablet 200 mg PO BID RF: 0 estradiol 2 mg tablet 2 mg PO DAILY RF: 0 Referrals: Inocencio Keenan MD [Primary Care Provider] - <Ian Hairston DO - Last Filed: 04/25/18 07:26> Cosign ED Attending Cosradhaature Attestation: I was immediately available in the department for consultation. Documentation has been reviewed. I agree with assessment and plan.
[2018-04-24 22:17] VITALS: BP 130/80; PULSE 80; RESP 18
== END 2018-04-24 22:18 | disposition home or self-care (01) ==
PROVIDERS: Emergency Provider Nurse Practitioner Family; PCP Internal Medicine
DX: S43.402A Unspecified sprain of left shoulder joint, initial encounter (principal)
CPT/HCPCS: 73030; 99282; 99283

== ENCOUNTER → 2018-06-06 16:14 | Outpatient (CLI) | payer MEDICARE, MEDICAID, SELFPAY ==
[2018-06-06 19:12] LABS: HIV 1 and 2 Antibody NEGATIVE (NEGATIVE); Hep C Virus Ab w/Reflex Quant NEGATIVE s/c (NEGATIVE)
[2018-06-08 18:11] LABS: Hepatitis B Core Antibody Nonreactive (Nonreactive)
[2018-06-08 19:16] LABS: RPR Screen Nonreactive (Nonreactive)
== END ==
PROVIDERS: PCP Internal Medicine; Visit Provider Physician Assistant
DX: R30.0 Dysuria (principal)
CPT/HCPCS: 36415; 86592; 86703; 86704; 86803

== ENCOUNTER → 2018-06-18 13:09 | Outpatient (CLI) | payer MEDICARE, MEDICAID, SELFPAY ==
[2018-06-18 15:22] LABS: Urine N gonorrhoeae NOT DETECTED
[2018-06-18 16:08] LABS: Urine Chlamydia NOT DETECTED
== END ==
PROVIDERS: PCP Internal Medicine; Visit Provider Physician Assistant
DX: R30.0 Dysuria (principal); Z11.3 Encounter for screening for infections with a predominantly sexual mode of transmission
CPT/HCPCS: 87491; 87591

== ENCOUNTER → 2018-11-07 11:50 | Outpatient (CLI) | payer MEDICARE, MEDICAID, SELFPAY ==
[2018-11-07 12:36] LABS: Hematocrit 39.8 % (41-53); Hemoglobin 12.9 g/dL (13.5-17.5)
[2018-11-07 12:47] LABS: Alanine Aminotransferase 14 IU/L (21-72); Albumin 3.7 g/dL (3.5-5.0); Albumin Globulin Ratio 1.3 (1.0-2.8); Alkaline Phosphatase 100 U/L (38-126); Aspartate Aminotransferase 28 IU/L (17-59); BUN Creatinine Ratio 12.5 (6-22); Bilirubin Total 0.3 mg/dL (0.2-1.3); Blood Urea Nitrogen 10 mg/dL (9-20); Calcium 8.8 mg/dL (8.4-10.2); Carbon Dioxide 19 mmol/L (22-32); Chloride 113 mmol/L (98-107); Cholesterol 115 mg/dL (140-199); Estimated Glomerular Filt Rate > 60.0 mL/min (>60); Globulin 2.8 g/dL (1.7-4.1); Glucose 76 mg/dL (70-100); HDL Cholesterol 46 mg/dL (40-60); HEMOLYSIS < 15 (0-50); LDL Cholesterol Calculated 53 mg/dL (<100); Potassium 4.2 mmol/L (3.4-5.1); Sodium 141 mmol/L (137-145); Total Protein 6.5 g/dL (6.3-8.2); Triglycerides 81 mg/dL (35-150)
[2018-11-07 15:48] LABS: Luteinizing Hormone < 0.22 mIU/mL
[2018-11-07 16:05] LABS: Estradiol, Total 61.7 pg/mL
== END ==
PROVIDERS: PCP Internal Medicine; Visit Provider Internal Medicine Endocrinology, Diabetes & Metabolism
DX: F64.0 Transsexualism (principal)
CPT/HCPCS: 36415; 80053; 80061; 82670; 83002; 84403; 85014; 85018

== ENCOUNTER → 2018-12-12 12:27 | Outpatient (CLI) | payer MEDICARE, MEDICAID, SELFPAY | PROVIDERS: PCP Internal Medicine; Visit Provider Nurse Practitioner | DX: R30.0 Dysuria (principal) | CPT/HCPCS: 87086 ==

== ENCOUNTER → 2018-12-18 12:30 | Outpatient (CLI) | payer MEDICARE, MEDICAID, SELFPAY ==
[2018-12-18 13:21] LABS: Alanine Aminotransferase 10 IU/L (<50); Albumin Globulin Ratio 1.6 (1.0-2.8); Alkaline Phosphatase 99 U/L (38-126); Aspartate Aminotransferase 25 IU/L (17-59); BUN Creatinine Ratio 15.6 (6-22); Bilirubin Total 0.5 mg/dL (0.2-1.3); Blood Urea Nitrogen 14 mg/dL (9-20); Calcium 9.2 mg/dL (8.4-10.2); Carbon Dioxide 19 mmol/L (22-32); Chloride 112 mmol/L (98-107); Cholesterol 115 mg/dL (140-199); Estimated Glomerular Filt Rate > 60.0 mL/min (>60); Globulin 2.5 g/dL (1.7-4.1); Glucose 84 mg/dL (70-100); HDL Cholesterol 48 mg/dL (40-60); HEMOLYSIS < 15 (0-50); LDL Cholesterol Calculated 54 mg/dL (<100); Potassium 4.5 mmol/L (3.4-5.1); Sodium 139 mmol/L (137-145); Total Protein 6.5 g/dL (6.3-8.2); Triglycerides 64 mg/dL (35-150)
[2018-12-18 13:52] LABS: Testosterone 14.9 ng/dL (132-813)
[2018-12-18 15:26] LABS: Estradiol, Total 130.8 pg/mL
[2018-12-18 15:27] LABS: Hematocrit 41.2 % (41-53); Hemoglobin 13.4 g/dL (13.5-17.5)
[2018-12-21 12:15] LABS: Hematocrit 39.5 % (41-53); Hemoglobin 13.1 g/dL (13.5-17.5)
== END ==
PROVIDERS: Family Provider Internal Medicine; PCP Internal Medicine; Visit Provider Internal Medicine Endocrinology, Diabetes & Metabolism
DX: F64.0 Transsexualism (principal)
CPT/HCPCS: 36415; 80053; 80061; 82670; 84403; 85014; 85018

== ENCOUNTER 2019-03-01 21:13 | Emergency (ER) | payer MEDICARE, MEDICAID, SELFPAY ==
[2019-03-01 21:25] VITALS: BP 134/88; PULSE 70; RESP 15; TEMP 36.2; O2SAT 100
--- NOTE | 2019-03-01 21:25 | DI.RAD.S_ITS ---
PROCEDURE: XR CHEST 1V INDICATIONS: chest pain, SOB TECHNIQUE: One view of the chest was acquired. COMPARISON: [facility], CR, XR CHEST 2V, 03/27/2018, 16:25. [facility], CR, XR CHEST 1V, 11/12/2017, 16:13. FINDINGS: Surgical changes and devices: None. Lungs and pleura: Lungs are clear. No pleural effusions or pneumothorax. Mediastinum: Mediastinal contours appear normal. Heart size is normal. Bones and chest wall: No suspicious bony lesions. Overlying soft tissues appear unremarkable. IMPRESSION: Normal for age, source of current chest pain and shortness of breath symptoms is not seen. Dictated by: Jonny Quinones M.D. on 03/01/2019 at 21:53 Approved by: Jonny Quinones M.D. on 03/01/2019 at 21:53
[2019-03-01 21:48] LABS: Add Manual Diff / Slide Review NO; Basophils Absolute Auto 0 /uL (0-100); Basophils Percent Auto 0.6 % (0-2); Eosinophils Absolute Auto 0 /uL (0-450); Eosinophils Percent Auto 0.6 % (2-4); Hematocrit 37.4 % (41-53); Hemoglobin 12.5 g/dL (13.5-17.5); Lymphocytes Absolute Auto 1600 /uL (1100-4500); Lymphocytes Percent Auto 24.9 % (25-40); Mean Corpuscular HGB Conc 33.6 % (30-36); Mean Corpuscular Hemoglobin 31.2 PG (26-34); Mean Corpuscular Volume 93.1 fL (80-100); Monocytes Absolute Auto 400 /uL (0-900); Monocytes Percent Auto 6.1 % (3-14); Neutrophils Absolute Auto 4400 /uL (1500-7000); Neutrophils Percent Auto 67.8 % (50-75); Platelet Count 227 X10^3/uL (150-400); Red Blood Cell Count 4.02 X10^6/uL (4.5-5.9); Red Cell Distribution Width 13.5 % (11.6-14.8); White Blood Cell Count 6.5 X10^3/uL (4.5-11.0)
[2019-03-01 22:01] LABS: Creatine Kinase 115 U/L (55-170)
--- NOTE | 2019-03-01 22:03 | DI.CT.S_ITS ---
PROCEDURE: CT ANGIO CHEST ABDOMEN PELVIS INDICATIONS: chest pain, shortness of breath, known aortic root dilation TECHNIQUE: Precontrast 5 mm thick sections acquired from the lung apices to the iliac crests. After the administration of intravenous contrast, 2.5 mm thick sections again acquired from the lung apices to the iliac crests. Maximum intensity projection (MIP) oblique sagittal and coronal reformats were then acquired. For radiation dose reduction, the following was used: automated exposure control. COMPARISON: [facility], CR, XR CHEST 2V, 03/27/2018, 16:25. [facility], CR, XR CHEST 1V, 03/01/2019, 21:43. FINDINGS: Image quality: Excellent. AORTA: On precontrast imaging, no mural hematomas can be seen. The ascending thoracic aorta measures 4.5 cm transversely, as on coronal image 26. The aortic arch and the descending thoracic aorta demonstrate normal caliber. No findings of dissection are seen. The abdominal aorta is within normal limits, without findings of stenosis or aneurysm. ABDOMEN: Vasculature: Celiac trunk and mesenteric arteries are patent. Renal arteries are also patent. Solid organs: Liver is normal in size and enhancement. There is a 13 mm cyst seen within the left lobe of the liver, as on series 5 image 95. Gallbladder wall demonstrates no thickening. Biliary system is non dilated. Pancreas enhances normally. Spleen is normal in size and enhancement. No adrenal nodules. Both kidneys are normal in size and enhancement, without hydronephrosis. Non-contrast images, there is a 2 mm nonobstructing stone seen within the right kidney, as on series 4 image 70. At the inferior pole of the left kidney, there is a water density 4 cm cyst, without enhancement. Peritoneum and bowel: No free fluid or air. Bowel loops are normal in caliber and wall thickness. Incidental note is made of a normal-appearing appendix. Nodes and vessels: No retroperitoneal or mesenteric adenopathy by size criteria. Inferior vena cava is normal in morphology. Miscellaneous: No ventral hernias. PELVIS: Genitourinary: Bladder wall thickness is normal. Miscellaneous: No inguinal hernias or adenopathy. No ventral hernias. Bones: No suspicious bony lesions. No vertebral body compression fractures. L5-S1 postoperative change can be seen on the right side. IMPRESSION: There is a 4.5 cm ascending thoracic aortic aneurysm. Please correlate with prior measurements. No findings of dissection or acute abnormality are seen. Incidental note is made of: Calcification of the aortic valve Nonobstructing right renal stone Left liver cyst Simple left renal cyst Normal appendix L5-S1 postoperative change Note: No significant discrepancy from the preliminary report. Dictated by: Mirza Lyles M.D. on 03/02/2019 at 7:39 Approved by: Mirza Lyles M.D. on 03/02/2019 at 7:48
[2019-03-01 22:13] VITALS: BP 108/70; PULSE 52; O2SAT 100
[2019-03-01 22:14] LABS: Troponin I < 0.012 ng/mL (0.01-0.034)
[2019-03-01 22:21] LABS: B Type Natriuretic Peptide < 100 (<100)
[2019-03-01 22:22] LABS: BUN Creatinine Ratio 16.7 (6-22); Blood Urea Nitrogen 15 mg/dL (9-20); Calcium 9.1 mg/dL (8.4-10.2); Carbon Dioxide 16 mmol/L (22-32); Chloride 113 mmol/L (98-107); Estimated Glomerular Filt Rate > 60.0 mL/min (>60); Glucose 88 mg/dL (70-100); HEMOLYSIS 89 (0-50); Sodium 139 mmol/L (137-145)
[2019-03-01 22:23] LABS: Potassium 4.1 mmol/L (3.4-5.1)
--- NOTE | 2019-03-01 22:51 | ED.CHESTPAIN ---
HPI - Chest Pain General Chief Complaint: Chest Pain Stated Complaint: heart pain Time Seen by Provider: 03/01/19 21:14 Source: patient Mode of arrival: Ambulatory Limitations: no limitations History of Present Illness HPI narrative: 49-year-old male former smoker with history of dilated aortic root presents with 2 days of reproducible anterior chest pain. He states he does feel a bit short of breath because it hurts to take a deep breath. He has had no cough with sputum or hemoptysis production. He denies exertional provocation, radiation of his symptoms or dizziness, weakness or lightheadedness. He has had no nausea, vomiting or diaphoresis. He sees cardiology at [facility] and most recent imaging of his aorta was performed within the past year Related Data Home Medications Medication Instructions Recorded Confirmed levetiracetam [Keppra] 2,000 mg PO BID #0 04/13/16 12/26/18 topiramate 200 mg PO BID 01/09/18 12/26/18 estradiol cypionate 5 mg/mL 3 mg IM QWEEK ml 12/26/18 12/26/18 intramuscular oil Previous Rx's Medication Instructions Recorded quetiapine 100 mg tablet 100 mg PO BEDTIME #90 tab 07/29/18 valacyclovir 1 gram tablet 1,000 mg PO QPM #90 tab 10/03/18 Allergies Allergy/AdvReac Type Severity Reaction Status Date / Time diazepam Allergy Severe TACHYCARDIA Verified 12/26/18 16:07 strawberry Allergy Severe ANAPHYLAXIS Verified 12/26/18 16:07 trazodone Allergy Intermediate SEIZURE Verified 12/26/18 16:07 amitriptyline [AMITRIPTYLINE] Allergy Unknown Verified 12/26/18 16:07 nortriptyline [NORTRIPTYLINE] Allergy Unknown Verified 12/26/18 16:07 haloperidol AdvReac Severe JACKED ME Verified 12/26/18 16:07 UP prednisone AdvReac Severe Increases Verified 12/26/18 16:07 epilepsy episodes Review of Systems Constitutional Constitutional: Denies chills, Denies fatigue, Denies fever(s), Denies frequent falls, Denies lethargy and Denies weakness Eyes Eyes: Denies change in vision, Denies eye discharge, Denies irritation and Denies loss of vision ENT Ears, Nose, Mouth, and Throat: Denies change in voice, Denies dizziness, Denies neck pain, Denies sore throat and Denies throat swelling Cardiovascular Cardiovascular: Reports chest pain, Denies irregular heart rhythm, Denies lightheadedness, Denies palpitations, Denies dyspnea, Denies dyspnea on exertion and Denies orthopnea Respiratory Respiratory: Denies cough, Reports pain on inspiration, Denies dyspnea, Denies dyspnea on exertion and Denies wheezing Gastrointestinal Gastrointestinal: Denies abdominal pain, Denies change in bowel habits, Denies diarrhea, Denies nausea and Denies vomiting Genitourinary Genitourinary: Denies hematuria, Denies flank pain, Denies urinary incontinence and Denies urinary urgency Musculoskeletal Musculoskeletal: Denies back pain, Denies muscle weakness, Denies neck pain, Denies numbness and Denies tingling Integumentary/Breasts Skin/Breast: Denies pruritus, Denies erythema, Denies rash and Denies wounds Neurologic Neurologic: Denies behavioral changes, Denies confusion, Denies dizziness, Denies frequent falls, Denies loss of vision, Denies numbness, Denies tingling and Denies weakness Psychiatric Psychiatric: Denies anxiety, Denies behavioral changes, Denies confusion, Denies depression, Denies homicidal ideation and Denies suicidal ideation Endocrine Endocrine: Denies fatigue, Denies flushing and Denies palpitations Hematologic/Lymphatic Hematologic/Lymphatic: Denies easy bruising Allergic/Immunologic Allergic/Immunologic: Denies urticaria, Denies throat swelling and Denies wheezing Patient History Social History marital status: unmarried,single lives independently: Yes occupational status: disabled Smoking Status: Former smoker alcohol intake: current substance use type: does not use Smoking Status: Former smoker alcohol intake frequency: holidays/special occasions only Substance Use Type: does not use Exam Narrative Exam Narrative: GENERAL: [49] year old patient appears stated age. Well-nourished, well-developed patient, in mild distress. Perhaps a bit anxious HEAD: Atraumatic. Normocephalic. EYES: Pupils equal round and reactive. Extraocular motions intact. No scleral icterus. No injection or drainage. ENT: Nose without bleeding, purulent drainage. Throat without erythema, tonsillar hypertrophy or exudate. Airway patent. NECK: Trachea midline. Non tender CARDIOVASCULAR: Regular rate and rhythm without murmurs, gallops, or rubs. Anterior chest pain is reproducible with deep palpation RESPIRATORY: Clear to auscultation. Breath sounds equal bilaterally. No wheezes, rales, or rhonchi. GASTROINTESTINAL: Abdomen soft, non-tender, nondistended. EXTREMITIES: No edema or joint tenderness. BACK: Nontender without deformity or crepitance. No flank tenderness. NEURO: AOx3. SKIN: No rash or erythema of visible areas Initial Vital Signs Initial Vital Signs: Vital Signs Temperature 97.2 F L 03/01/19 21:25 Pulse Rate 70 03/01/19 21:25 Respiratory Rate 15 03/01/19 21:25 Blood Pressure 134/88 03/01/19 21:25 Pulse Oximetry 100 03/01/19 21:25 Course Orders Ordered: ED Orders 03/01/19 21:25 XR chest 1V Stat EKG-12 Lead Stat 03/01/19 21:35 B Type Natriuretic Peptide Stat Basic Metabolic Panel Stat Complete Blood Count AUTO DIFF Stat Troponin & CK Cardiac Panel Stat 03/01/19 22:03 CT angio chest abdomen pelvis Stat Consultations Consultation #1: Call to on-call Cardiology from [facility] who was able to review patient's record. After lengthy discussion regarding patient's history and physical as well as today's findings we sure the opinion that the patient can very safely be discharged as his story is not consistent with ischemic disease, specially given 2 days of symptoms and lack of EKG or troponin. Is aortic dimensions are unchanged when compared to previous studies [facility] Vital Signs Vital signs: Vital Signs - 8 hr 03/01/19 22:13 03/01/19 23:00 03/01/19 23:30 Pulse Rate 52 L 65 60 Respiratory Rate 18 15 Blood Pressure Blood Pressure [Left Arm] 108/70 111/69 110/70 Pulse Oximetry 100 100 100 03/02/19 00:46 03/02/19 01:30 03/02/19 02:09 Pulse Rate 61 55 L 55 L Respiratory Rate 16 15 18 Blood Pressure 126/74 Blood Pressure [Left Arm] 118/76 114/73 Pulse Oximetry 100 100 100 MDM - Chest Pain Lab Data Result diagrams: 03/01/19 21:35 03/01/19 21:35 Labs: Lab Results 03/01/19 03/01/19 03/01/19 Range/Units 21:35 21:35 21:35 WBC 6.5 (4.5-11.0) X10^3/uL RBC 4.02 L (4.5-5.9) X10^6/uL Hgb 12.5 L (13.5-17.5) g/dL Hct 37.4 L (41-53) % MCV 93.1 (80-100) fL MCH 31.2 (26-34) PG MCHC 33.6 (30-36) % RDW 13.5 (11.6-14.8) % Plt Count 227 (150-400) X10^3/uL Neut % (Auto) 67.8 (50-75) % Lymph % (Auto) 24.9 L (25-40) % [place] % (Auto) 6.1 (3-14) % Eos % (Auto) 0.6 L (2-4) % Baso % (Auto) 0.6 (0-2) % Neut # (Auto) 4400 (2068-5405) /uL Lymph # (Auto) 1600 (4735-8446) /uL [place] # (Auto) 400 (0-900) /uL Eos # (Auto) 0 (0-450) /uL Baso # (Auto) 0 (0-100) /uL Sodium 139 (137-145) mmol/L Potassium 4.1 (3.4-5.1) mmol/L Chloride 113 H (98-107) mmol/L Carbon Dioxide 16 L (22-32) mmol/L BUN 15 (9-20) mg/dL Creatinine 0.90 (0.66-1.25) mg/dL Estimated GFR > 60.0 (>60) mL/min BUN/Creatinine Ratio 16.7 (6-22) Glucose 88 (70-100) mg/dL Calcium 9.1 (8.4-10.2) mg/dL Total Creatine Kinase 115 (55-170) U/L CK-MB (CK-2) 1.10 (<2.37) ng/mL CK-MB (CK-2) Rel Index 1.0 L (1.5-5.0) % Troponin I < 0.012 (0.01-0.034) ng/mL B-Natriuretic Peptide < 100 (<100) Imaging Data CT scan - chest: Radiologist's Impression: No PE. Ascending Aorta 4.7cm. No dissection MDM Narrative Medical decision making narrative: Multiple causes of chest pain considered including WI, PE, pneumothorax, pneumonia, aortic dissection, and pleurisy. Patient reports no radiation, no diaphoresis, no provocation with exertion, and no vomiting Patient's symptoms improved or duration of stay with above-stated therapies. Findings and discharge diagnosis discussed with patient/family followed by verbalization of understanding Return precautions discussed with patient/family whom verbalize understanding. Critical Care Time Critical Care Time Critical Care Time: Yes Total Critical Care Time: 30 Attestation: The high probability of a clinically significant, sudden or life threatening deterioration of the [CV] system(s) required my full and direct attention, intervention and personal management. The aggregate critical care time was [30] minutes. This time is in addition to time spent performing reported procedures but includes the following: [x] Data Review and interpretation [x] Patient assessment and monitoring of vital signs [x] Documentation [x] Medication orders and management Discharge Plan Departure Patient Disposition: Home Clinical Impression: Atypical chest pain Discharge Date/Time: 03/02/19 02:09 Instructions: DI for Atypical Chest Pain Activity Restrictions/Additional Instructions: *You have been diagnosed with atypical chest pain *What to do: *Take medications as directed *Follow up with your primary care provider in 2-3 days, call for an appointment. Let them know you were seen in the Emergency Department and that we ask that you be seen in follow up *Return to ER if you should have any new, worsening or concerning symptoms Prescriptions: No Action levetiracetam [Keppra] 1,000 MG tablet 2,000 mg PO BID Qty: 0 RF: 0 quetiapine [Seroquel] 100 mg tablet 100 mg PO BEDTIME Qty: 90 RF: 1 valacyclovir 1 gram tablet 1,000 mg PO QPM Qty: 90 RF: 3 Depo-Estradiol 5 mg/mL oil 3 mg IM QWEEK RF: 0 topiramate 200 mg tablet 200 mg PO BID RF: 0 Referrals: Inocencio Keenan MD [Primary Care Provider] -
[2019-03-01 23:00] VITALS: BP 111/69; PULSE 65; RESP 18; O2SAT 100
[2019-03-01 23:30] VITALS: BP 110/70; PULSE 60; RESP 15; O2SAT 100
[2019-03-02 00:46] VITALS: BP 118/76; PULSE 61; RESP 16; O2SAT 100
[2019-03-02 01:30] VITALS: BP 114/73; PULSE 55; RESP 15; O2SAT 100
[2019-03-02 02:09] VITALS: BP 126/74; PULSE 55; RESP 18; O2SAT 100
== END 2019-03-02 02:09 | disposition home or self-care (01) ==
PROVIDERS: Emergency Provider Emergency Medicine; Family Provider Internal Medicine; PCP Internal Medicine
DX: R07.89 Other chest pain (principal); R06.02 Shortness of breath
CPT/HCPCS: 36415; 71045; 71275; 74174; 80048; 82550; 82553; 83880; 84484; 85025; 93005; 93010; 99284; 99291; Q9967

== ENCOUNTER 2019-04-28 14:08 | Emergency (ER) | payer OTHER, MEDICAID, SELFPAY ==
[2019-04-28 14:17] VITALS: BP 119/65; PULSE 58; RESP 18; TEMP 37.1; O2SAT 100
--- NOTE | 2019-04-28 14:28 | DI.RAD.S_ITS ---
PROCEDURE: XR CHEST 2V INDICATIONS: SOB TECHNIQUE: 2 views of the chest were acquired. COMPARISON: [facility], CR, XR CHEST 1V, 03/01/2019, 21:43. FINDINGS: Surgical changes and devices: None. Lungs and pleura: Lungs are clear. No pleural effusions or pneumothorax. Mediastinum: Mediastinal contours are normal. Heart size is normal. Bones and chest wall: No suspicious bony abnormalities. Soft tissues appear unremarkable. IMPRESSION: No acute cardiopulmonary abnormalities or focal airspace disease. Dictated by: Alex Martin M.D. on 04/28/2019 at 15:29 Approved by: Alex Martin M.D. on 04/28/2019 at 15:30
[2019-04-28 15:04] LABS: Influenza A - CEPHEID Flu A NEGATIVE (NEGATIVE); Influenza B - CEPHEID Flu B NEGATIVE (NEGATIVE)
--- NOTE | 2019-04-28 15:32 | ED.CHESTPAIN ---
HPI - Chest Pain <MITCHEL Acosta - Last Filed: 04/28/19 21:22> General Chief Complaint: Upper Respiratory Symptoms Stated Complaint: SHORTNESS OF BREATH Time Seen by Provider: 04/28/19 14:18 Source: patient Mode of arrival: Ambulatory History of Present Illness HPI narrative: 49-year-old male with history of aortic stenosis, JESSICA, and mitral valve prolaspe, presents to the emergency department complaining of 8/10 chest pressure and shortness of breath for the past 5 days. He states ?I was running on the treadmill when a girl walked in front of me and coughed, my shortness of breath immediately hit me and did not go away. Patient reports worsening symptoms with pressure to the area and taking a deep breath Patient reports associated fatigue, chills, and intermittent diarrhea. Patient denies any abdominal pain, fevers, cough, rhinorrhea, abdominal pain, nausea, vomiting, dizziness, vision changes, or any other concerns. He denies any recent travel or known exposure to COVID-19. Related Data Home Medications Medication Instructions Recorded Confirmed levetiracetam [Keppra] 2,000 mg PO BID #0 04/13/16 03/13/19 topiramate 200 mg PO BID 01/09/18 03/13/19 estradiol cypionate 5 mg/mL 3 mg IM QWEEK ml 12/26/18 03/13/19 intramuscular oil Previous Rx's Medication Instructions Recorded quetiapine 100 mg tablet 100 mg PO BEDTIME #90 tab 07/29/18 valacyclovir 1 gram tablet 1,000 mg PO QPM #90 tab 10/03/18 prednisone 20 mg tablet See Rx Instructions PO .COMPLEX #8 03/13/19 tab Allergies Allergy/AdvReac Type Severity Reaction Status Date / Time diazepam Allergy Severe TACHYCARDIA Verified 03/13/19 11:36 strawberry Allergy Severe ANAPHYLAXIS Verified 03/13/19 11:36 trazodone Allergy Intermediate SEIZURE Verified 03/13/19 11:36 amitriptyline [AMITRIPTYLINE] Allergy Unknown Verified 03/13/19 11:36 nortriptyline [NORTRIPTYLINE] Allergy Unknown Verified 03/13/19 11:36 haloperidol AdvReac Severe JACKED ME Verified 03/13/19 11:36 UP prednisone AdvReac Severe Increases Verified 03/13/19 11:36 epilepsy episodes Review of Systems <MITCHEL Acosta - Last Filed: 04/28/19 21:22> Review of Systems Narrative: REVIEW OF SYSTEMS: GENERAL: Denies fevers. HENT: No head trauma or hearing loss. EYES: No loss of vision, double vision, eye pain, irritation or discharge. CARDIOVASCULAR: Reports chest pain, see HPI. RESPIRATORY: Reports shortness of, see HPI. GASTROINTESTINAL: No nausea, vomiting, diarrhea, or constipation. MUSCULOSKELETAL: No weakness or injury. INTEGUMENTARY: No rash, lesions, or pruritus. NEURO: No memory loss, or confusion. 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) Headache (Chronic) Lower back pain (Chronic) Mitral valve prolapse (Chronic 10/21/10) Mitral valve prolapse (Chronic) Obstructive sleep apnea syndrome (Chronic 10/21/10) Seizure (Chronic) Seizure disorder (Chronic 10/21/10) Sleep apnea (Chronic) Voice and resonance disorder (Chronic) Surgical History H/O spinal fusion (Resolved) S/P Achilles tendon repair (Resolved) Social History marital status: unmarried,single lives independently: Yes occupational status: disabled Smoking Status: Former smoker alcohol intake: current substance use type: does not use Smoking Status: Former smoker alcohol intake frequency: holidays/special occasions only Substance Use Type: does not use Exam <MITCHEL Acosta - Last Filed: 04/28/19 21:22> Initial Vital Signs Initial Vital Signs: Vital Signs Temperature 98.8 F 04/28/19 14:17 Pulse Rate 58 L 04/28/19 14:17 Respiratory Rate 18 04/28/19 14:17 Blood Pressure 119/65 04/28/19 14:17 Pulse Oximetry 100 04/28/19 14:17 PHYSICAL EXAMINATION: GENERAL: Well groomed, alert, and cooperative. Answers questions promptly and appropriately. Vital signs noted. HENT: Normocephalic, atraumatic. Ear canals patent. Oral mucosa is pink and moist. EYES: Conjunctiva pink, sclera white, no periorbital swelling. CHEST: Normal to inspection and without deformities. Pain reproducible with palpation of right sternal costal border. CARDIOVASCULAR: S1 and S2 sounds normal. Regular rate and rhythm, no murmurs, clicks, or bruits. No pedal edema. RESPIRATORY: Normal respiratory rate, trachea midline, airway patent. No stridor, nasal flaring or accessory muscle use. Lungs are clear in all garcia without wheeze, rhonchi, or crackles. No cough observed. GASTROINTESTINAL: Bowel sounds normoactive. Abdomen is soft and non-tender. No organomegaly. MUSCULOSKELETAL: Normal gait and coordination. Equal tone and mass bilaterally. EXTREMITIES: CMS intact. Moves all extremities. SKIN: Warm, dry, soft, appropriate color for ethnicity. No lesions, rashes, or wounds. NEURO: Alert and Oriented X 3. Good coordination. No ataxia, or sensory deficits, or cognitive issues. PSYCH: Appropriate affect and mood. <Tammie Abreu MD - Last Filed: 05/12/19 06:59> Initial Vital Signs Initial Vital Signs: Vital Signs Temperature 98.8 F 04/28/19 14:17 Pulse Rate 58 L 04/28/19 14:17 Respiratory Rate 18 04/28/19 14:17 Blood Pressure 119/65 04/28/19 14:17 Pulse Oximetry 100 04/28/19 14:17 Scores <MITCHEL Acosta - Last Filed: 04/28/19 21:22> HEART Score Heart Score history: Slightly Suspicious Heart Score EKG: Normal Heart Score Age: 45-64 years old Heart Score risk factors: 1-2 risk factors Heart Score troponin: < or = to normal limit Heart Score Total: 2 Course <MITCHEL Acosta - Last Filed: 04/28/19 21:22> Course Course Narrative: Patient was given Toradol, reported improved symptoms. Orders Ordered: Discontinued Medications Ketorolac Tromethamine (Toradol) 30 mg IM NOW ONE Stop: 04/28/19 17:43 Last Admin: 04/28/19 17:51 Dose: 30 mg Documented by: CHARLEEN Consultations Consultation #1: Patient staffed with Dr. Abreu. Vital Signs Vital signs: Vital Signs - 8 hr 04/28/19 14:17 04/28/19 16:44 04/28/19 16:49 Temperature 98.8 F Pulse Rate 58 L 51 L 56 L Respiratory Rate 18 15 16 Blood Pressure 119/65 Blood Pressure [Left Arm] 119/70 122/78 Pulse Oximetry 100 99 100 04/28/19 17:28 04/28/19 18:06 Temperature Pulse Rate 57 L 80 Respiratory Rate 18 16 Blood Pressure 122/71 Blood Pressure [Left Arm] 123/81 Pulse Oximetry 98 99 <Tammie Abreu MD - Last Filed: 05/12/19 06:59> Orders Ordered: Discontinued Medications Ketorolac Tromethamine (Toradol) 30 mg IM NOW ONE Stop: 04/28/19 17:43 Last Admin: 04/28/19 17:51 Dose: 30 mg Documented by: CHARLEEN Vital Signs Vital signs: Vital Signs - 8 hr 04/28/19 14:17 04/28/19 16:44 04/28/19 16:49 Temperature 98.8 F Pulse Rate 58 L 51 L 56 L Respiratory Rate 18 15 16 Blood Pressure 119/65 Blood Pressure [Left Arm] 119/70 122/78 Pulse Oximetry 100 99 100 04/28/19 17:28 04/28/19 18:06 Temperature Pulse Rate 57 L 80 Respiratory Rate 18 16 Blood Pressure 122/71 Blood Pressure [Left Arm] 123/81 Pulse Oximetry 98 99 MDM - Chest Pain <MITCHEL Acosta - Last Filed: 04/28/19 21:22> Medical Records Data Attestation: I reviewed the patient's medical records. Lab Data Attestation: I reviewed the patient's lab results. Result diagrams: 04/28/19 16:41 04/28/19 16:41 Labs: Lab Results 04/28/19 04/28/19 04/28/19 Range/Units 14:25 16:41 16:41 WBC 4.9 (4.5-11.0) X10^3/uL RBC 4.12 L (4.5-5.9) X10^6/uL Hgb 12.7 L (13.5-17.5) g/dL Hct 38.7 L (41-53) % MCV 94.0 (80-100) fL MCH 30.8 (26-34) PG MCHC 32.8 (30-36) % RDW 14.4 (11.6-14.8) % Plt Count 212 (150-400) X10^3/uL Neut % (Auto) 59.5 (50-75) % Lymph % (Auto) 29.5 (25-40) % [place] % (Auto) 7.9 (3-14) % Eos % (Auto) 2.3 (2-4) % Baso % (Auto) 0.8 (0-2) % Neut # (Auto) 2900 (5859-2013) /uL Lymph # (Auto) 1400 (7650-2106) /uL [place] # (Auto) 400 (0-900) /uL Eos # (Auto) 100 (0-450) /uL Baso # (Auto) 0 (0-100) /uL Sodium 137 (137-145) mmol/L Potassium 4.4 (3.4-5.1) mmol/L Chloride 113 H (98-107) mmol/L Carbon Dioxide 19 L (22-32) mmol/L BUN 15 (9-20) mg/dL Creatinine 0.87 (0.66-1.25) mg/dL Estimated GFR > 60.0 (>60) mL/min BUN/Creatinine Ratio 17.2 (6-22) Glucose 84 (70-100) mg/dL Calcium 9.2 (8.4-10.2) mg/dL Total Bilirubin 0.2 (0.2-1.3) mg/dL AST 20 (17-59) IU/L ALT 9 (<50) IU/L Alkaline Phosphatase 105 (38-126) U/L Total Creatine Kinase 64 (55-170) U/L CK-MB (CK-2) TNP CK-MB (CK-2) Rel Index TNP Troponin I < 0.012 (0.01-0.034) ng/mL Total Protein 7.2 (6.3-8.2) g/dL Albumin 4.1 (3.5-5.0) g/dL Globulin 3.1 (1.7-4.1) g/dL Albumin/Globulin Ratio 1.3 (1.0-2.8) Lipase 150 (23-300) U/L Influenza A (RT-PCR) Flu a negative (NEGATIVE) Influenza B (RT-PCR) Flu b negative (NEGATIVE) Imaging Data Extremity x-ray #1: Radiologist's Impression: [place] [id number] [place] [id number] XRay Report Signed Patient: Sid Raymundo LMR#: [id number] : 1970Acct:[id number] Age/Sex: 49 / MDate of Service: 04/28/19 Loc: ED Accession Number: [id number] Procedure: XR chest 2V Ordering Provider: Karina Mcarthur PROCEDURE: XR CHEST 2V INDICATIONS: SOB TECHNIQUE: 2 views of the chest were acquired. COMPARISON: [facility], CR, XR CHEST 1V, 03/01/2019, 21:43. FINDINGS: Surgical changes and devices: None. Lungs and pleura: Lungs are clear. No pleural effusions or pneumothorax. Mediastinum: Mediastinal contours are normal. Heart size is normal. Bones and chest wall: No suspicious bony abnormalities. Soft tissues appear unremarkable. IMPRESSION: No acute cardiopulmonary abnormalities or focal airspace disease. Dictated by: Alex Martin M.D. on 04/28/2019 at 15:29 Approved by: Alex Martin M.D. on 04/28/2019 at 15:30 ECG Data Interpretation: Normal sinus rhythm, rate 58, NJ interval 180, QTC 44. No ST elevation or ST depression. No T-wave abnormality. No ectopy. EKG also viewed by Dr. Abreu. [facility] Narrative Medical decision making narrative: 49-year-old male presenting to the emergency department for shortness of breath and chest pain for the past week while running on the treadmill after seeing a girl cough in front of him. I suspect this most likely costochondritis as pain is reproducible with pressure along the right sternal costal border and worsening pain with a deep breath. Due to risk factors and the fact that pain occurred during exercise, cardiac workup was completed which was negative. Troponin was negative EKG was non-concerning and heart score is 2. Less likely PE due to reproducible pain on palpation. Patient remained hemodynamically stable without any worsening symptoms throughout the emergency department stay. He actually reported improved symptoms after Toradol injection. Patient was encouraged to follow up with his primary care provider in 1-2 weeks for further evaluation. Decreased plan of care verbalized understanding. <Tammie Abreu MD - Last Filed: 05/12/19 06:59> Lab Data Labs: Lab Results 04/28/19 04/28/19 04/28/19 Range/Units 14:25 16:41 16:41 WBC 4.9 (4.5-11.0) X10^3/uL RBC 4.12 L (4.5-5.9) X10^6/uL Hgb 12.7 L (13.5-17.5) g/dL Hct 38.7 L (41-53) % MCV 94.0 (80-100) fL MCH 30.8 (26-34) PG MCHC 32.8 (30-36) % RDW 14.4 (11.6-14.8) % Plt Count 212 (150-400) X10^3/uL Neut % (Auto) 59.5 (50-75) % Lymph % (Auto) 29.5 (25-40) % [place] % (Auto) 7.9 (3-14) % Eos % (Auto) 2.3 (2-4) % Baso % (Auto) 0.8 (0-2) % Neut # (Auto) 2900 (4631-0970) /uL Lymph # (Auto) 1400 (5092-8223) /uL [place] # (Auto) 400 (0-900) /uL Eos # (Auto) 100 (0-450) /uL Baso # (Auto) 0 (0-100) /uL Sodium 137 (137-145) mmol/L Potassium 4.4 (3.4-5.1) mmol/L Chloride 113 H (98-107) mmol/L Carbon Dioxide 19 L (22-32) mmol/L BUN 15 (9-20) mg/dL Creatinine 0.87 (0.66-1.25) mg/dL Estimated GFR > 60.0 (>60) mL/min BUN/Creatinine Ratio 17.2 (6-22) Glucose 84 (70-100) mg/dL Calcium 9.2 (8.4-10.2) mg/dL Total Bilirubin 0.2 (0.2-1.3) mg/dL AST 20 (17-59) IU/L ALT 9 (<50) IU/L Alkaline Phosphatase 105 (38-126) U/L Total Creatine Kinase 64 (55-170) U/L CK-MB (CK-2) TNP CK-MB (CK-2) Rel Index TNP Troponin I < 0.012 (0.01-0.034) ng/mL Total Protein 7.2 (6.3-8.2) g/dL Albumin 4.1 (3.5-5.0) g/dL Globulin 3.1 (1.7-4.1) g/dL Albumin/Globulin Ratio 1.3 (1.0-2.8) Lipase 150 (23-300) U/L Influenza A (RT-PCR) Flu a negative (NEGATIVE) Influenza B (RT-PCR) Flu b negative (NEGATIVE) Discharge Plan Departure Patient Disposition: Home Clinical Impression: Acute costochondritis, Aortic valve stenosis Discharge Date/Time: 04/28/19 17:57 Instructions: DI for Costochondritis Activity Restrictions/Additional Instructions: Thank you for entrusting me with your care today. As discussed, your chest x-ray, EKG, and labs are non-remarkable. Your pain and SOB may be caused by costochondritis as it is more painful when you take a deep breath and when I push on the area of your chest. You can take Tylenol and ibuprofen for pain. Please stay at home until your symptoms are resolved, I do not suspect this is a viral illness, however given state of the community at this time, I recommend self isolation until you feel better. Return emergency department for any new or worsening symptoms such as severe chest pain, shortness of breath does not like to walk across the room, or any other concerns. If you develop a fever, please be in contact with your primary care provider for possible testing if they believe it is indicated. Follow up with your PCP in 1-2 weeks for reevaluation. Prescriptions: No Action levetiracetam [Keppra] 1,000 MG tablet 2,000 mg PO BID Qty: 0 RF: 0 quetiapine [Seroquel] 100 mg tablet 100 mg PO BEDTIME Qty: 90 RF: 1 valacyclovir 1 gram tablet 1,000 mg PO QPM Qty: 90 RF: 3 Depo-Estradiol 5 mg/mL oil 3 mg IM QWEEK RF: 0 prednisone 20 mg tablet See Rx Instructions PO .COMPLEX Qty: 8 RF: 0 topiramate 200 mg tablet 200 mg PO BID RF: 0 Referrals: Inocencio Keenan MD [Primary Care Provider] - Stand Alone Forms: Work Release Note
[2019-04-28 16:44] VITALS: BP 119/70; PULSE 51; RESP 15; O2SAT 99
[2019-04-28 16:49] VITALS: BP 122/78; PULSE 56; RESP 16; O2SAT 100
[2019-04-28 16:49] LABS: Add Manual Diff / Slide Review NO; Basophils Absolute Auto 0 /uL (0-100); Basophils Percent Auto 0.8 % (0-2); Eosinophils Absolute Auto 100 /uL (0-450); Eosinophils Percent Auto 2.3 % (2-4); Hematocrit 38.7 % (41-53); Hemoglobin 12.7 g/dL (13.5-17.5); Lymphocytes Absolute Auto 1400 /uL (1100-4500); Lymphocytes Percent Auto 29.5 % (25-40); Mean Corpuscular HGB Conc 32.8 % (30-36); Mean Corpuscular Hemoglobin 30.8 PG (26-34); Monocytes Absolute Auto 400 /uL (0-900); Monocytes Percent Auto 7.9 % (3-14); Neutrophils Absolute Auto 2900 /uL (1500-7000); Neutrophils Percent Auto 59.5 % (50-75); Platelet Count 212 X10^3/uL (150-400); Red Blood Cell Count 4.12 X10^6/uL (4.5-5.9); Red Cell Distribution Width 14.4 % (11.6-14.8); White Blood Cell Count 4.9 X10^3/uL (4.5-11.0)
[2019-04-28 17:03] LABS: Alanine Aminotransferase 9 IU/L (<50); Albumin 4.1 g/dL (3.5-5.0); Albumin Globulin Ratio 1.3 (1.0-2.8); Alkaline Phosphatase 105 U/L (38-126); Aspartate Aminotransferase 20 IU/L (17-59); BUN Creatinine Ratio 17.2 (6-22); Bilirubin Total 0.2 mg/dL (0.2-1.3); Blood Urea Nitrogen 15 mg/dL (9-20); Calcium 9.2 mg/dL (8.4-10.2); Carbon Dioxide 19 mmol/L (22-32); Chloride 113 mmol/L (98-107); Creatine Kinase 64 U/L (55-170); Estimated Glomerular Filt Rate > 60.0 mL/min (>60); Globulin 3.1 g/dL (1.7-4.1); Glucose 84 mg/dL (70-100); HEMOLYSIS < 15 (0-50); Lipase 150 U/L (23-300); Potassium 4.4 mmol/L (3.4-5.1); Sodium 137 mmol/L (137-145); Total Protein 7.2 g/dL (6.3-8.2)
[2019-04-28 17:14] LABS: Troponin I < 0.012 ng/mL (0.01-0.034)
[2019-04-28 17:28] VITALS: BP 123/81; PULSE 57; RESP 18; O2SAT 98
[2019-04-28] MEDS: KETOROLAC 60 MG/2 ML VIAL 30 MG IM (17:51)
[2019-04-28 18:06] VITALS: BP 122/71; PULSE 80; RESP 16; O2SAT 99
== END 2019-04-28 17:57 | disposition home or self-care (01) ==
PROVIDERS: Emergency Provider Nurse Practitioner; Family Provider Internal Medicine; PCP Internal Medicine
DX: M94.0 Chondrocostal junction syndrome [Tietze] (principal); I35.0 Nonrheumatic aortic (valve) stenosis; R06.02 Shortness of breath
CPT/HCPCS: 36415; 71046; 80053; 82550; 83690; 84484; 85025; 87502; 93005; 96372; 99284; J1885

== ENCOUNTER 2019-10-24 15:17 | Emergency (ER) | payer OTHER, MEDICAID, SELFPAY ==
[2019-10-24 15:20] VITALS: BP 125/84; PULSE 77; RESP 18; TEMP 36.3; O2SAT 99; BMI 29.6
[2019-10-24 16:20] VITALS: BP 122/79; PULSE 58; O2SAT 99
--- NOTE | 2019-10-24 16:22 | DI.RAD.S_ITS ---
PROCEDURE: XR LUMBAR SPINE 2-3V INDICATIONS: lumbar back pain s/p L fusion in 2012 TECHNIQUE: 3 views of the lumbar spine were acquired. COMPARISON: [facility], , L-SPINE 2-3 VIEWS, 06/22/2015, 10:36. FINDINGS: Bones: 5 [id number] vertebrae are present. There is mild diffuse rightward curvature of the lumbar spine. Loss of normal lumbar lordosis. Posterior fusion of L5-S1. normal bony alignment. No vertebral body compression fractures. No suspicious bony lesions. Soft tissues: Overlying bowel gas pattern is normal. No suspicious soft tissue calcifications. IMPRESSION: 1. Postsurgical sequelae. 2. No acute fracture. No osseous lesion. If symptoms and/or clinical suspicion for pathology persist, further assessment with repeat, or advanced imaging (e.g., CT, MRI, or bone scan) may be helpful for further assessment. Dictated by: Joanne August M.D. on 10/24/2019 at 16:41 Approved by: Joanne August M.D. on 10/24/2019 at 16:43
--- NOTE | 2019-10-24 16:50 | ED.BACK ---
HPI - Back Pain/Injury General Chief Complaint: Back Pain/Injury Stated Complaint: back pain s/p spinal fusion Time Seen by Provider: 10/24/19 16:28 Source: patient Limitations: no limitations History of Present Illness HPI Narrative: Patient complains of lower back pain starting 5 days ago when he got up from a recliner. [place] immediate pain. Non radiating. No leg or feet numbness tingling weakness. No saddle paresthesia. No bowel or bladder incontinence or retention. OTC medications not helping. Patient denies any abdominal pain or chest pain. Patient drove himself here. Does not have a hyster driver. And lumbar fusion 2012 by local Ortho Spine provider Dr. esquivel but he states he is unable see him anymore because of insurance reasons. States has not been on any narcotic prescription since 2012. Patient does have primary care Dr. Keenan, unable to reach him by phone. According the patient. Denies denies any recent illness. No fever chills. Is not on any immune suppression medication. Is not diabetic. No IV drug use. Related Data Home Medications Medication Instructions Recorded Confirmed levetiracetam [Keppra] 2,000 mg PO BID #0 04/13/16 03/13/19 topiramate 200 mg PO BID 01/09/18 03/13/19 estradiol cypionate 5 mg/mL 3 mg IM QWEEK ml 12/26/18 03/13/19 intramuscular oil Previous Rx's Medication Instructions Recorded prednisone 20 mg tablet See Rx Instructions PO .COMPLEX #8 03/13/19 tab quetiapine 100 mg tablet 100 mg PO BEDTIME #90 tab 08/04/19 valacyclovir 1 gram tablet 1,000 mg PO QPM #90 tab 10/23/19 hydrocodone-acetaminophen [[place]] 1 tab PO Q8H PRN #14 tab 10/24/19 ondansetron 4 mg PO Q8H PRN #10 tab 10/24/19 Allergies Allergy/AdvReac Type Severity Reaction Status Date / Time diazepam Allergy Severe TACHYCARDIA Verified 03/13/19 11:36 strawberry Allergy Severe ANAPHYLAXIS Verified 03/13/19 11:36 trazodone Allergy Intermediate SEIZURE Verified 03/13/19 11:36 amitriptyline [AMITRIPTYLINE] Allergy Unknown Verified 03/13/19 11:36 nortriptyline [NORTRIPTYLINE] Allergy Unknown Verified 03/13/19 11:36 haloperidol AdvReac Severe JACKED ME Verified 03/13/19 11:36 UP prednisone AdvReac Severe Increases Verified 03/13/19 11:36 epilepsy episodes Review of Systems Review of Systems Narrative: GENERAL: Denies chills, fatigue, malaise, fever, sweats. HEENT: Denies sinus pain, ear pain, sore throat, difficulty swallowing, dizziness. RESPIRATORY: Denies dyspnea, cough, wheezing, hemoptysis, sputum. CARDIOVASCULAR: Denies chest pain, palpitations, orthopnea, edema, GASTROINTESTINAL: Denies nausea, vomiting, abdominal pain, diarrhea, constipation, melena. : Denies dysuria, frequency, incontinence, hematuria, urinary retention. MUSCULOSKELETAL: denies weakness, complains of joint pain, bony pain SKIN: Denies rash, skin lesions NEUROLOGIC: Denies weakness, headache, numbness, change in speech, confusion, seizures, incoordination. PSYCHIATRIC: No concerning psychosocial issues. ROS Unobtainable: All systems reviewed & are unremarkable except as noted in HPI and below Patient History Medical History Aortic stenosis (Chronic) Bicuspid aortic valve (Chronic) Dislocation, shoulder (Resolved) Disturbed concentration (Chronic) 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) Headache (Chronic) Lower back pain (Chronic) Mitral valve prolapse (Chronic 10/21/10) Mitral valve prolapse (Chronic) Obstructive sleep apnea syndrome (Chronic 10/21/10) Seizure (Chronic) Seizure disorder (Chronic 10/21/10) Sleep apnea (Chronic) Voice and resonance disorder (Chronic) Surgical History H/O spinal fusion (Resolved) S/P Achilles tendon repair (Resolved) Social History marital status: unmarried,single lives independently: Yes occupational status: disabled Smoking Status: Former smoker alcohol intake: current substance use type: does not use Smoking Status: Former smoker alcohol intake frequency: holidays/special occasions only Substance Use Type: does not use Exam Narrative Exam Narrative: GENERAL: patient appears stated age. Well-nourished, well-developed patient, in no distress, not toxic, shoes and socks off. Patient in shorts. Back exposed HEAD: Atraumatic. Normocephalic. EYES: Pupils equal round and reactive. Extraocular motions intact. No scleral icterus. No injection or drainage. ENT: Nose without bleeding, purulent drainage. Throat without erythema, tonsillar hypertrophy or exudate. Airway patent. NECK: Trachea midline. Non tender CARDIOVASCULAR: Regular rate and rhythm without murmurs, gallops, or rubs. RESPIRATORY: Clear to auscultation. Breath sounds equal bilaterally. No wheezes, rales, or rhonchi. GASTROINTESTINAL: Abdomen soft, non-tender, nondistended. EXTREMITIES: No edema or joint tenderness. BACK: Point tenderness overlying the surgical scar of the lumbar spine. No fluctuance no erythema no induration. Limited side bent and leaning for due to back pain. By lateral straight leg raise pain at 30?. NEURO: AOx4. Steady self gait no footdrop strong bilateral patellar reflexes and ankle flexion extension. SKIN: No rash or erythema of visible areas PSYCH: Not anxious, is cooperative Initial Vital Signs Initial Vital Signs: Vital Signs Temperature 97.3 F L 10/24/19 15:20 Pulse Rate 77 10/24/19 15:20 Respiratory Rate 18 10/24/19 15:20 Blood Pressure 125/84 10/24/19 15:20 Pulse Oximetry 99 10/24/19 15:20 Course Orders Ordered: ED Orders 10/24/19 16:22 XR lumbar spine 2-3V Stat Discontinued Medications Ketorolac Tromethamine (Toradol) 30 mg IM NOW ONE Stop: 10/24/19 16:49 Last Admin: 10/24/19 17:01 Dose: 30 mg Documented by: [place] Reevaluation(s) Reevaluation #1: Pain is controlled. Reviewed x-rays with patient. Agrees with treatment plan for follow-up and outpatient MRI. Time: 17:04 Vital Signs Vital signs: Vital Signs - 8 hr 10/24/19 15:20 10/24/19 16:20 Temperature 97.3 F L Pulse Rate 77 58 L Respiratory Rate 18 Blood Pressure 125/84 122/79 Pulse Oximetry 99 99 MDM - Back Pain/Injury Differential Diagnosis Differential diagnosis: Likely sciatica and strain of lumbar region Imaging Data Lumbar spine x-ray: Radiologist's Impression: GENERAL: patient appears stated age. Well-nourished, well-developed patient, in no distress, not toxic HEAD: Atraumatic. Normocephalic. EYES: Pupils equal round and reactive. Extraocular motions intact. No scleral icterus. No injection or drainage. ENT: Nose without bleeding, purulent drainage. Throat without erythema, tonsillar hypertrophy or exudate. Airway patent. NECK: Trachea midline. Non tender CARDIOVASCULAR: Regular rate and rhythm without murmurs, gallops, or rubs. RESPIRATORY: Clear to auscultation. Breath sounds equal bilaterally. No wheezes, rales, or rhonchi. GASTROINTESTINAL: Abdomen soft, non-tender, nondistended. EXTREMITIES: No edema or joint tenderness. BACK: Nontender without deformity or crepitance. No flank tenderness. NEURO: AOx4. SKIN: No rash or erythema of visible areas PSYCH: Not anxious, is cooperative MDM Narrative Medical decision making narrative: Vital signs reviewed. No fever. Low risk for spinal abscess. No neuro deficits. At this time no laboratory studies or MRI indicated.. Denies any IV drug use diabetes or immune suppression Discharge Plan Departure Patient Disposition: Home Clinical Impression: Lower back pain Qualifiers: Chronicity: acute Back pain laterality: midline Sciatica presence: without sciatica Qualified Code(s): M54.5 - Low back pain Discharge Date/Time: 10/24/19 17:12 Instructions: DI for Low Back Pain, DI for Back Strain or Sprain Activity Restrictions/Additional Instructions: Call your family doctor to schedule MRI of your lower back. May need a referral for a new ortho spine physician. Return if worse or any bowel or bladder incontinence or retention or numbness or tingling to the groin area. Return if any numbness tingling or weakness to the legs or feet. Prescriptions: New hydrocodone-acetaminophen [[place]] 7.5-325 mg tablet 1 tab PO Q8H PRN (Reason: pain) Qty: 14 RF: 0 ondansetron 4 mg tablet,disintegrating 4 mg PO Q8H PRN (Reason: nausea and vomiting) Qty: 10 RF: 0 No Action levetiracetam [Keppra] 1,000 MG tablet 2,000 mg PO BID Qty: 0 RF: 0 quetiapine [Seroquel] 100 mg tablet 100 mg PO BEDTIME Qty: 90 RF: 3 valacyclovir 1 gram tablet 1,000 mg PO QPM Qty: 90 RF: 3 Depo-Estradiol 5 mg/mL oil 3 mg IM QWEEK RF: 0 prednisone 20 mg tablet See Rx Instructions PO .COMPLEX Qty: 8 RF: 0 topiramate 200 mg tablet 200 mg PO BID RF: 0 Referrals: Inocencio Keenan MD [Primary Care Provider] -
[2019-10-24] MEDS: KETOROLAC 60 MG/2 ML VIAL 30 MG IM (17:01)
== END 2019-10-24 17:12 | disposition home or self-care (01) ==
PROVIDERS: Emergency Provider Emergency Medicine; Family Provider Internal Medicine; PCP Internal Medicine
DX: M54.5 Low back pain (principal)
CPT/HCPCS: 72100; 96372; 99283; J1885

== ENCOUNTER 2020-02-28 17:17 | Emergency (ER) | payer OTHER, MEDICAID, SELFPAY ==
--- NOTE | 2020-02-28 17:25 | PC.NURSE ---
Pt called from [facility] x 2 without answer
[2020-02-28 17:41] VITALS: BP 126/76; PULSE 70; RESP 16; TEMP 36.6; O2SAT 97; BMI 30.2
[2020-02-28 17:43] LABS: Bacteria Urine None Seen; RBC Urine None Seen (0-5/HPF); WBC Urine None Seen (0-5/HPF)
--- NOTE | 2020-02-28 17:50 | ED.ABDPAIN ---
HPI - Abdominal Pain <Tammie Abreu MD - Last Filed: 03/06/20 18:19> General Chief Complaint: Abdominal Pain Stated Complaint: states appendix pain Time Seen by Provider: 02/28/20 17:34 History of Present Illness HPI narrative: [age] year old gentleman with history of his seizure disorder for which he takes Keppra and topiramate last seizure was 12 years ago, presents with 24 hours of acute right lower quadrant pain. He states he has had chills but no fevers, no cough, no chest pain no palpitations. He describes the abdominal pain is localizing to his right lower quadrant, sharp and stabbing, severe, worse with walking, standing up straight or palpation. He states he did have a normal bowel movement today and that did not influences pain. He describes no flank pain or dysuria. Related Data Home Medications Medication Instructions Recorded Confirmed levetiracetam [Keppra] 2,000 mg PO BID #0 04/13/16 01/13/20 topiramate 200 mg PO BID 01/09/18 01/13/20 estradiol cypionate 5 mg/mL 3 mg IM QWEEK ml 12/26/18 01/13/20 intramuscular oil Previous Rx's Medication Instructions Recorded quetiapine 100 mg tablet 100 mg PO BEDTIME #90 tab 08/04/19 sulfamethoxazole 800 1 tab PO BID #20 tab 01/13/20 mg-trimethoprim 160 mg tablet valacyclovir 1 gram tablet 1,000 mg PO QPM #90 tab 01/20/20 hydrocodone-acetaminophen 1 tab PO Q4-6H PRN #10 tab 02/28/20 ondansetron 4 mg PO TID-QID PRN #10 tab 02/28/20 Allergies Allergy/AdvReac Type Severity Reaction Status Date / Time diazepam Allergy Severe TACHYCARDIA Verified 01/13/20 13:40 strawberry Allergy Severe ANAPHYLAXIS Verified 01/13/20 13:40 trazodone Allergy Intermediate SEIZURE Verified 01/13/20 13:40 amitriptyline [AMITRIPTYLINE] Allergy Unknown Verified 01/13/20 13:40 nortriptyline [NORTRIPTYLINE] Allergy Unknown Verified 01/13/20 13:40 haloperidol AdvReac Severe JACKED ME Verified 01/13/20 13:40 UP prednisone AdvReac Severe Increases Verified 01/13/20 13:40 epilepsy episodes Review of Systems <Tammie Abreu MD - Last Filed: 03/06/20 18:19> Review of Systems Narrative: Remainder of review of systems including constitutional, ENT, cardiovascular, respiratory, GI, , musculoskeletal, skin, neurologic and psychiatric systems reviewed and are unremarkable except as noted in HPI. Patient History <Tammie Abreu MD - Last Filed: 03/06/20 18:19> Medical History (Updated 02/28/20 @ 18:50 by Ian Hairston DO) Aortic stenosis Dislocation, shoulder Disturbed concentration Gender dysphoria in adult Headache Lower back pain Mitral valve prolapse (10/21/10) Obstructive sleep apnea syndrome (10/21/10) Seizure disorder (10/21/10) Sleep apnea Voice and resonance disorder Surgical History H/O spinal fusion S/P Achilles tendon repair Social History marital status: unmarried,single lives independently: Yes occupational status: disabled Smoking Status: Former smoker alcohol intake: current substance use type: does not use Smoking Status: Former smoker alcohol intake frequency: holidays/special occasions only Substance Use Type: does not use Exam <Tammie Abreu MD - Last Filed: 03/06/20 18:19> Narrative Exam Narrative: General: Healthy appearing, in no moderate distress. Able to give a complete and coherent history. Well-nourished well-developed. Unable to stand up straight and has a shuffling gait walking into the room HEENT: Moist mucous membranes, normal sclera with reactive pupils, Respiratory: Lungs are clear to auscultation, no wheezing no rales no rhonchi. Full and symmetrical air movement Cardiac: Regular rate and rhythm no murmurs no bruits Abdomen: Soft, very tender in the right lower quadrant with out rebound or guarding, good bowel tones, no flank pain Skin: Warm and dry, no rashes Neurologic: Grossly neurologically intact with no obvious asymmetries or abnormalities Extremities: No trauma, well perfused Psych: Cooperative, appropriate insight and affect Initial Vital Signs Initial Vital Signs: Vital Signs Temperature 97.8 F 02/28/20 17:41 Pulse Rate 70 02/28/20 17:41 Respiratory Rate 16 02/28/20 17:41 Blood Pressure 126/76 02/28/20 17:41 Pulse Oximetry 97 02/28/20 17:41 <Ian Hairston DO - Last Filed: 02/28/20 19:08> Initial Vital Signs Initial Vital Signs: Vital Signs Temperature 97.8 F 02/28/20 17:41 Pulse Rate 70 02/28/20 17:41 Respiratory Rate 16 02/28/20 17:41 Blood Pressure 126/76 02/28/20 17:41 Pulse Oximetry 97 02/28/20 17:41 Course <Tammie Abreu MD - Last Filed: 03/06/20 18:19> Orders Ordered: Discontinued Medications Hydrocodone Bitart/Acetaminophen (Hydrocodone/Acet 5/325 Prepack) 1 bottle MISC SEEINSTR ONE Stop: 02/28/20 18:44 Last Admin: 02/28/20 18:56 Dose: 1 bottle Documented by: PRISCILA Hydromorphone HCl (Hydromorphone 0.5 Mg Inj) 0.5 mg IV Q15MIN PRN PRN Reason: Pain, Last Admin: 02/28/20 18:08 Dose: 0.5 mg Documented by: NIKKY Sodium Chloride (Normal Saline 0.9%) 1,000 mls @ 150 mls/hr IV CONT LUIS FERNANDO Last Infusion: 02/28/20 19:01 Dose: 0 mls/hr Documented by: Admin: 02/28/20 18:08 Dose: 150 mls/hr Documented by: NIKKY Ondansetron HCl (Ondansetron 4 Mg Odt Prepack) 1 bottle MISC SEEINSTR ONE Stop: 02/28/20 18:44 Last Admin: 02/28/20 18:56 Dose: 1 bottle Documented by: PRISCILA Vital Signs Vital signs: Vital Signs - 8 hr 02/28/20 17:41 02/28/20 19:02 Temperature 97.8 F Pulse Rate 70 83 Respiratory Rate 16 16 Blood Pressure 126/76 128/78 Pulse Oximetry 97 97 <Ian Hairston DO - Last Filed: 02/28/20 19:08> Course Course Narrative: 1801 - patient received in signout from Dr. Abreu. I've performed an independent history and physical. We are waiting on CT results. My exam is consistent with prior. I examined him in a standing position for inguinal hernia check and no findings consistent with hernia. No testicular swelling, pain, or discoloration. Orders Ordered: Discontinued Medications Hydrocodone Bitart/Acetaminophen (Hydrocodone/Acet 5/325 Prepack) 1 bottle MISC SEEINSTR ONE Stop: 02/28/20 18:44 Last Admin: 02/28/20 18:56 Dose: 1 bottle Documented by: PRISCILA Hydromorphone HCl (Hydromorphone 0.5 Mg Inj) 0.5 mg IV Q15MIN PRN PRN Reason: Pain, Last Admin: 02/28/20 18:08 Dose: 0.5 mg Documented by: NIKKY Sodium Chloride (Normal Saline 0.9%) 1,000 mls @ 150 mls/hr IV CONT LUIS FERNANDO Last Infusion: 02/28/20 19:01 Dose: 0 mls/hr Documented by: Admin: 02/28/20 18:08 Dose: 150 mls/hr Documented by: NIKKY Ondansetron HCl (Ondansetron 4 Mg Odt Prepack) 1 bottle MISC SEEINSTR ONE Stop: 02/28/20 18:44 Last Admin: 02/28/20 18:56 Dose: 1 bottle Documented by: PRISCILA Vital Signs Vital signs: Vital Signs - 8 hr 02/28/20 17:41 02/28/20 19:02 Temperature 97.8 F Pulse Rate 70 83 Respiratory Rate 16 16 Blood Pressure 126/76 128/78 Pulse Oximetry 97 97 MDM - Abdominal Pain <Tammie Abreu MD - Last Filed: 03/06/20 18:19> Lab Data Result diagrams: 02/28/20 17:50 02/28/20 17:50 Labs: Lab Results 02/28/20 02/28/20 02/28/20 Range/Units 17:39 17:50 17:50 WBC 4.9 (4.5-11.0) X10^3/uL RBC 4.09 L (4.5-5.9) X10^6/uL Hgb 12.7 L (13.5-17.5) g/dL Hct 38.6 L (41-53) % MCV 94.5 (80-100) fL MCH 31.0 (26-34) PG MCHC 32.8 (30-36) % RDW 16.1 H (11.6-14.8) % Plt Count 271 (150-400) X10^3/uL Neut % (Auto) 62.0 (50-75) % Lymph % (Auto) 28.4 (25-40) % [place] % (Auto) 7.0 (3-14) % Eos % (Auto) 1.8 L (2-4) % Baso % (Auto) 0.8 (0-2) % Neut # (Auto) 3000 (2288-9545) /uL Lymph # (Auto) 1400 (9042-6540) /uL [place]gs # (Auto) 300 (0-900) /uL Eos # (Auto) 100 (0-450) /uL Baso # (Auto) 0 (0-100) /uL Sodium 140 (137-145) mmol/L Potassium 3.5 (3.4-5.1) mmol/L Chloride 112 H (98-107) mmol/L Carbon Dioxide 19 L (22-32) mmol/L BUN 12 (9-20) mg/dL Creatinine 0.93 (0.66-1.25) mg/dL Estimated GFR > 60.0 (>60) mL/min BUN/Creatinine Ratio 12.9 (6-22) Glucose 100 (70-100) mg/dL Calcium 8.8 (8.4-10.2) mg/dL Total Bilirubin 0.2 (0.2-1.3) mg/dL AST 23 (17-59) IU/L ALT 12 (<50) IU/L Alkaline Phosphatase 115 (38-126) U/L Total Protein 7.3 (6.3-8.2) g/dL Albumin 4.3 (3.5-5.0) g/dL Globulin 3.0 (1.7-4.1) g/dL Albumin/Globulin Ratio 1.4 (1.0-2.8) Lipase 115 (23-300) U/L Urine Color Yellow Urine Appearance Clear Urine pH 5.0 (4.5-8.0) Ur Specific [place] 1.015 (1.000-1.035) Urine Protein Negative (Negative) Urine Glucose (UA) Negative (Negative) g/dL Urine Ketones Negative (NEGATIVE) Urine Occult Blood Negative (Negative) Urine Nitrate Negative (Negative) Urine Bilirubin Negative (NEGATIVE) Urine Urobilinogen 0.2 (0.2) E.U./dL Ur Leukocyte Esterase Negative (NEGATIVE) Urine RBC None seen (0-5/HPF) Urine WBC None seen (0-5/HPF) Urine Bacteria None seen (None) Ur Culture Indicated? Cult not indicated SARS-CoV-2 (PCR) (Negative) 02/28/20 Range/Units 17:50 WBC (4.5-11.0) X10^3/uL RBC (4.5-5.9) X10^6/uL Hgb (13.5-17.5) g/dL Hct (41-53) % MCV (80-100) fL MCH (26-34) PG MCHC (30-36) % RDW (11.6-14.8) % Plt Count (150-400) X10^3/uL Neut % (Auto) (50-75) % Lymph % (Auto) (25-40) % [place] % (Auto) (3-14) % Eos % (Auto) (2-4) % Baso % (Auto) (0-2) % Neut # (Auto) (9182-3566) /uL Lymph # (Auto) (6911-5354) /uL [place]gs # (Auto) (0-900) /uL Eos # (Auto) (0-450) /uL Baso # (Auto) (0-100) /uL Sodium (137-145) mmol/L Potassium (3.4-5.1) mmol/L Chloride (98-107) mmol/L Carbon Dioxide (22-32) mmol/L BUN (9-20) mg/dL Creatinine (0.66-1.25) mg/dL Estimated GFR (>60) mL/min BUN/Creatinine Ratio (6-22) Glucose (70-100) mg/dL Calcium (8.4-10.2) mg/dL Total Bilirubin (0.2-1.3) mg/dL AST (17-59) IU/L ALT (<50) IU/L Alkaline Phosphatase (38-126) U/L Total Protein (6.3-8.2) g/dL Albumin (3.5-5.0) g/dL Globulin (1.7-4.1) g/dL Albumin/Globulin Ratio (1.0-2.8) Lipase (23-300) U/L Urine Color Urine Appearance Urine pH (4.5-8.0) Ur Specific [place] (1.000-1.035) Urine Protein (Negative) Urine Glucose (UA) (Negative) g/dL Urine Ketones (NEGATIVE) Urine Occult Blood (Negative) Urine Nitrate (Negative) Urine Bilirubin (NEGATIVE) Urine Urobilinogen (0.2) E.U./dL Ur Leukocyte Esterase (NEGATIVE) Urine RBC (0-5/HPF) Urine WBC (0-5/HPF) Urine Bacteria (None) Ur Culture Indicated? SARS-CoV-2 (PCR) Negative (Negative) <Ian Hairston, DO - Last Filed: 02/28/20 19:08> Lab Data Labs: Lab Results 02/28/20 02/28/20 02/28/20 Range/Units 17:39 17:50 17:50 WBC 4.9 (4.5-11.0) X10^3/uL RBC 4.09 L (4.5-5.9) X10^6/uL Hgb 12.7 L (13.5-17.5) g/dL Hct 38.6 L (41-53) % MCV 94.5 (80-100) fL MCH 31.0 (26-34) PG MCHC 32.8 (30-36) % RDW 16.1 H (11.6-14.8) % Plt Count 271 (150-400) X10^3/uL Neut % (Auto) 62.0 (50-75) % Lymph % (Auto) 28.4 (25-40) % [place] % (Auto) 7.0 (3-14) % Eos % (Auto) 1.8 L (2-4) % Baso % (Auto) 0.8 (0-2) % Neut # (Auto) 3000 (1185-1312) /uL Lymph # (Auto) 1400 (3482-3077) /uL [place] # (Auto) 300 (0-900) /uL Eos # (Auto) 100 (0-450) /uL Baso # (Auto) 0 (0-100) /uL Sodium 140 (137-145) mmol/L Potassium 3.5 (3.4-5.1) mmol/L Chloride 112 H (98-107) mmol/L Carbon Dioxide 19 L (22-32) mmol/L BUN 12 (9-20) mg/dL Creatinine 0.93 (0.66-1.25) mg/dL Estimated GFR > 60.0 (>60) mL/min BUN/Creatinine Ratio 12.9 (6-22) Glucose 100 (70-100) mg/dL Calcium 8.8 (8.4-10.2) mg/dL Total Bilirubin 0.2 (0.2-1.3) mg/dL AST 23 (17-59) IU/L ALT 12 (<50) IU/L Alkaline Phosphatase 115 (38-126) U/L Total Protein 7.3 (6.3-8.2) g/dL Albumin 4.3 (3.5-5.0) g/dL Globulin 3.0 (1.7-4.1) g/dL Albumin/Globulin Ratio 1.4 (1.0-2.8) Lipase 115 (23-300) U/L Urine Color Yellow Urine Appearance Clear Urine pH 5.0 (4.5-8.0) Ur Specific [place] 1.015 (1.000-1.035) Urine Protein Negative (Negative) Urine Glucose (UA) Negative (Negative) g/dL Urine Ketones Negative (NEGATIVE) Urine Occult Blood Negative (Negative) Urine Nitrate Negative (Negative) Urine Bilirubin Negative (NEGATIVE) Urine Urobilinogen 0.2 (0.2) E.U./dL Ur Leukocyte Esterase Negative (NEGATIVE) Urine RBC None seen (0-5/HPF) Urine WBC None seen (0-5/HPF) Urine Bacteria None seen (None) Ur Culture Indicated? Cult not indicated SARS-CoV-2 (PCR) (Negative) 02/28/20 Range/Units 17:50 WBC (4.5-11.0) X10^3/uL RBC (4.5-5.9) X10^6/uL Hgb (13.5-17.5) g/dL Hct (41-53) % MCV (80-100) fL MCH (26-34) PG MCHC (30-36) % RDW (11.6-14.8) % Plt Count (150-400) X10^3/uL Neut % (Auto) (50-75) % Lymph % (Auto) (25-40) % [place] % (Auto) (3-14) % Eos % (Auto) (2-4) % Baso % (Auto) (0-2) % Neut # (Auto) (3125-1046) /uL Lymph # (Auto) (8010-6196) /uL [place] # (Auto) (0-900) /uL Eos # (Auto) (0-450) /uL Baso # (Auto) (0-100) /uL Sodium (137-145) mmol/L Potassium (3.4-5.1) mmol/L Chloride (98-107) mmol/L Carbon Dioxide (22-32) mmol/L BUN (9-20) mg/dL Creatinine (0.66-1.25) mg/dL Estimated GFR (>60) mL/min BUN/Creatinine Ratio (6-22) Glucose (70-100) mg/dL Calcium (8.4-10.2) mg/dL Total Bilirubin (0.2-1.3) mg/dL AST (17-59) IU/L ALT (<50) IU/L Alkaline Phosphatase (38-126) U/L Total Protein (6.3-8.2) g/dL Albumin (3.5-5.0) g/dL Globulin (1.7-4.1) g/dL Albumin/Globulin Ratio (1.0-2.8) Lipase (23-300) U/L Urine Color Urine Appearance Urine pH (4.5-8.0) Ur Specific [place] (1.000-1.035) Urine Protein (Negative) Urine Glucose (UA) (Negative) g/dL Urine Ketones (NEGATIVE) Urine Occult Blood (Negative) Urine Nitrate (Negative) Urine Bilirubin (NEGATIVE) Urine Urobilinogen (0.2) E.U./dL Ur Leukocyte Esterase (NEGATIVE) Urine RBC (0-5/HPF) Urine WBC (0-5/HPF) Urine Bacteria (None) Ur Culture Indicated? SARS-CoV-2 (PCR) Negative (Negative) Imaging Data CT scan - abdomen/pelvis: Radiologist's Impression: 49 Ian Hairston, DO Find Patient Imaging - Sid Raymundo Miguel 50 M 1970 ACTIVITY DATE EXAM STATUS AUTHOR 02/28/20 17:[address] [id number] Scan ReportSigned Patient: Sid Raymundo LMR#: [id number]: 1970Acct:[id number]/Sex: 50 / MDate of Service: 02/28/20Loc: EDAccession Number: [id number] Procedure: CT abdomen pelvis w con Ordering Provider: Tammie Abreu MD PROCEDURE: CT ABDOMEN PELVIS W CON INDICATIONS: acute RLQ pain TECHNIQUE: After the administration of intravenous contrast, 5 mm thick sections acquired from the diaphragm to the symphysis. 5 mm coronal and sagittal reformats were acquired. For radiation dose reduction, the following was used: automated exposure control, adjustment of mA and/or kV according to patient size. COMPARISON: [facility], CT, CT ANGIO CHEST ABDOMEN PELVIS, 03/01/2019, 22:34. [facility], CT, CT ABDOMEN PELVIS W CON, 08/13/2017, 14:36. FINDINGS: Image quality: Excellent. ABDOMEN: Lung bases: Lung bases are clear. Heart size is normal. Solid organs: Liver is mildly enlarged and enhancement. Steatosis and left hepatic cysts are unchanged. Gallbladder is unremarkable. Biliary system is non dilated. Pancreas enhances normally. Spleen is normal in size and enhancement. No adrenal nodules. Kidneys demonstrate normal size and enhancement, without hydronephrosis. Left renal cyst is unremarkable. Punctate nonobstructing left renal calculus. Peritoneum and bowel: Bowel loops demonstrate normal wall thickness and caliber. No free fluid or air. Appendix is unremarkable. Minimal scattered diverticula are noted without inflammatory change. Nodes and vessels: No retroperitoneal or mesenteric adenopathy by size criteria. Aorta and inferior vena cava are normal in size. Miscellaneous: Trace fat containing ventral hernia. PELVIS: Genitourinary: Bladder wall thickness is normal. Miscellaneous: No inguinal hernias or adenopathy. Bones: No suspicious bony lesions. No vertebral body compression fractures. Intervertebral spacer is present at L5-S1 with posterior fusion IMPRESSION: 1. Appendix is within normal limits. No right lower quadrant inflammatory change. 2. Punctate nonobstructing right renal calculus. Dictated by: Salome Serrano M.D. on 02/28/2020 at 18:19 Approved by: Salome Serrano M.D. on 02/28/2020 at 18:23 [facility] Narrative Medical decision making narrative: 50M with persistent RLQ pain over 24 hours. Appy considered, but No fever, chills, N/V, anorexia. No elevated WBCs. No findings on CT. Kidney stone/UTI considered, but thought unlikely given normal urine findings. causes such as hernia, testicular problem or even prostatitis but considered unlikley given lack of classic exam findings. Extensive return precautions given and plan to touch base with myself in 24 hours. This plan is clearly understood by the patient as is evidenced by his ability to verbalize the plan back to me. Questions answered to his apparent satisfaction. Discharge Plan Departure Patient Disposition: Home Clinical Impression: Abdominal pain, acute, right lower quadrant Instructions: DI for Abdominal Pain-Adult Activity Restrictions/Additional Instructions: *You have been diagnosed with [right lower quadrant pain. Though your story was concerning for appendicitis, the labs and CT scan would suggest this is not the case.] *What to do: *Take medications as directed: Prescriptions sent to [facility] at your request *Please call me here in the ED tomorrow at 7pm to touch base *Follow up with your primary care provider in 2-3 days, call for an appointment. Let them know you were seen in the Emergency Department and that we ask that you be seen in follow up *Return to ER if you should have any new, worsening or concerning symptoms, such as [ fevere > 101F, vomiting, significantly worsening pain or other bothersome symptoms] Prescriptions: New hydrocodone-acetaminophen 5-325 mg tablet 1 tab PO Q4-6H PRN (Reason: pain) Qty: 10 RF: 0 ondansetron 4 mg tablet,disintegrating 4 mg PO TID-QID PRN (Reason: nausea and vomiting) Qty: 10 RF: 0 No Action levetiracetam [Keppra] 1,000 MG tablet 2,000 mg PO BID Qty: 0 RF: 0 quetiapine [Seroquel] 100 mg tablet 100 mg PO BEDTIME Qty: 90 RF: 3 valacyclovir 1 gram tablet 1,000 mg PO QPM Qty: 90 RF: 3 Depo-Estradiol 5 mg/mL oil 3 mg IM QWEEK RF: 0 sulfamethoxazole-trimethoprim 800-160 mg tablet 1 tab PO BID Qty: 20 RF: 1 topiramate 200 mg tablet 200 mg PO BID RF: 0 Referrals: Inocencio Keenan MD [Primary Care Provider] - ED Sign-out <Tammie Abreu MD - Last Filed: 03/06/20 18:19> Cosign ED Attending Cosradhaature Attestation: I was immediately available in the department for consultation throughout this patient's visit. I agree with documentation as above. Tammie Abreu MD
[2020-02-28 17:53] LABS: Appearance Urine UA CLEAR; Bilirubin Urine UA NEGATIVE (NEGATIVE); Color Urine UA YELLOW; Glucose Urine UA NEGATIVE (Negative); Ketones Urine UA NEGATIVE (NEGATIVE); Leukocyte Esterase Urine UA NEGATIVE (NEGATIVE); Nitrite Urine UA NEGATIVE (Negative); Occult Blood Urine UA NEGATIVE (Negative); Protein Urine UA NEGATIVE (Negative); Specific Gravity Urine UA 1.015 (1.000-1.035); Urobilinogen Urine UA 0.2 E.U./dL (0.2)
[2020-02-28 18:04] LABS: Culture Indicated Urine Cult Not Indicated
[2020-02-28] MEDS: HYDROMORPHONE 0.5 MG INJ IV (18:08)
[2020-02-28] MEDS: SODIUM CHLORIDE 0.9% 1,000 ML 150 ML IV (18:08)
[2020-02-28 18:09] LABS: Add Manual Diff / Slide Review NO; Basophils Absolute Auto 0 /uL (0-100); Basophils Percent Auto 0.8 % (0-2); Eosinophils Absolute Auto 100 /uL (0-450); Eosinophils Percent Auto 1.8 % (2-4); Hematocrit 38.6 % (41-53); Hemoglobin 12.7 g/dL (13.5-17.5); Lymphocytes Absolute Auto 1400 /uL (1100-4500); Lymphocytes Percent Auto 28.4 % (25-40); Mean Corpuscular HGB Conc 32.8 % (30-36); Mean Corpuscular Volume 94.5 fL (80-100); Monocytes Absolute Auto 300 /uL (0-900); Neutrophils Absolute Auto 3000 /uL (1500-7000); Platelet Count 271 X10^3/uL (150-400); Red Blood Cell Count 4.09 X10^6/uL (4.5-5.9); Red Cell Distribution Width 16.1 % (11.6-14.8); White Blood Cell Count 4.9 X10^3/uL (4.5-11.0)
[2020-02-28 18:14] LABS: Alanine Aminotransferase 12 IU/L (<50); Albumin 4.3 g/dL (3.5-5.0); Albumin Globulin Ratio 1.4 (1.0-2.8); Alkaline Phosphatase 115 U/L (38-126); Aspartate Aminotransferase 23 IU/L (17-59); BUN Creatinine Ratio 12.9 (6-22); Bilirubin Total 0.2 mg/dL (0.2-1.3); Blood Urea Nitrogen 12 mg/dL (9-20); Calcium 8.8 mg/dL (8.4-10.2); Carbon Dioxide 19 mmol/L (22-32); Chloride 112 mmol/L (98-107); Estimated Glomerular Filt Rate > 60.0 mL/min (>60); Glucose 100 mg/dL (70-100); HEMOLYSIS < 15 (0-50); Lipase 115 U/L (23-300); Potassium 3.5 mmol/L (3.4-5.1); Sodium 140 mmol/L (137-145); Total Protein 7.3 g/dL (6.3-8.2)
[2020-02-28 18:16] LABS: COVID19 -Nasal RAPID Negative (Negative)
[2020-02-28] MEDS: ONDANSETRON 4 MG ODT PREPACK 1 BOTTLE MISC (18:56)
[2020-02-28] MEDS: HYDROCODONE/ACET 5/325 PREPACK 1 BOTTLE MISC (18:56)
[2020-02-28 19:02] VITALS: BP 128/78; PULSE 83; RESP 16; O2SAT 97
== END 2020-02-28 19:07 | disposition home or self-care (01) ==
PROVIDERS: Emergency Medicine; Emergency Provider Emergency Medicine; Family Provider Internal Medicine; PCP Internal Medicine
DX: R10.31 Right lower quadrant pain (principal); Z20.822 Contact with and (suspected) exposure to COVID-19
CPT/HCPCS: 36415; 74177; 80053; 81001; 83690; 85025; 87635; 96361; 96374; 99281; 99284; C9803; J1170; Q9967

== ENCOUNTER 2020-04-23 16:08 | Emergency (ER) | payer OTHER, MEDICAID, SELFPAY ==
[2020-04-23 16:16] VITALS: BP 124/81; PULSE 78; RESP 18; TEMP 36.1; O2SAT 100; BMI 28.5
--- NOTE | 2020-04-23 17:04 | ED.EXTPRO ---
HPI - Extremity Problem <Naimaerik MartinezDO - Last Filed: 04/24/20 07:15> General Chief complaint: Extremity Problem,Nontraumatic Stated complaint: POST UP 3 DAYS RIGHT FOOT NO FEELING Time Seen by Provider: 04/23/20 17:04 Source: patient Mode of arrival: Family Vehicle Limitations: no limitations History of Present Illness HPI Narrative: This is a 50-year-old male transitioning to female. Patient states that today while they were loading groceries they noticed tingling in there right lower extremity from just below the knee towards the foot. They have not appreciated any color changes there has been new new pallor, cyanosis or erythema. They have not appreciated any significant swelling. Patient does have a history of spinal fusion but has not had any new back pain or pain radiating down the leg from the back or hip region. Patient has been able to use the lower extremity but appreciates a pins and needles sensation. Patient was concerned in the last 2 weeks at they had a breast augmentation as well as several procedures on the hairline, chin and face that had a total time of approximately 12 hours in length. Patient is currently not taking in their injectable estrogen. Patient is not currently on any anticoagulation. They are on Keppra, Topamax, Seroquel, and Valcyclovir. Patient denies any fevers. No new chest pain or new shortness of breath. Patient denies any nausea no vomiting. No new GI or urinary symptoms. Patient has not had any other recent traumas or injuries. They have not similar symptoms in her extremity in the past. Related Data Home Medications Medication Instructions Recorded Confirmed levetiracetam [Keppra] 2,000 mg PO BID #0 04/13/16 01/13/20 topiramate 200 mg PO BID 01/09/18 01/13/20 estradiol cypionate 5 mg/mL 3 mg IM QWEEK ml 12/26/18 01/13/20 intramuscular oil Previous Rx's Medication Instructions Recorded quetiapine 100 mg tablet 100 mg PO BEDTIME #90 tab 08/04/19 sulfamethoxazole 800 1 tab PO BID #20 tab 01/13/20 mg-trimethoprim 160 mg tablet valacyclovir 1 gram tablet 1,000 mg PO QPM #90 tab 01/20/20 hydrocodone-acetaminophen 1 tab PO Q4-6H PRN #10 tab 02/28/20 ondansetron 4 mg PO TID-QID PRN #10 tab 02/28/20 Allergies Allergy/AdvReac Type Severity Reaction Status Date / Time diazepam Allergy Severe TACHYCARDIA Verified 04/23/20 16:25 strawberry Allergy Severe ANAPHYLAXIS Verified 04/23/20 16:25 trazodone Allergy Intermediate SEIZURE Verified 04/23/20 16:25 amitriptyline [AMITRIPTYLINE] Allergy Unknown Verified 04/23/20 16:25 nortriptyline [NORTRIPTYLINE] Allergy Unknown Verified 04/23/20 16:25 haloperidol AdvReac Severe JACKED ME Verified 04/23/20 16:25 UP prednisone AdvReac Severe Increases Verified 04/23/20 16:25 epilepsy episodes Review of Systems <Naima Martinez DO - Last Filed: 04/24/20 07:15> Review of Systems ROS Unobtainable: All systems reviewed & are unremarkable except as noted in HPI and below Patient History <Naima Martinez DO - Last Filed: 04/24/20 07:15> Medical History (Updated 04/23/20 @ 17:29 by Naima Martinez DO) Aortic stenosis Dislocation, shoulder Disturbed concentration Gender dysphoria in adult Headache Lower back pain Mitral valve prolapse (10/21/10) Obstructive sleep apnea syndrome (10/21/10) Seizure disorder (10/21/10) Sleep apnea Voice and resonance disorder Surgical History H/O spinal fusion S/P Achilles tendon repair Social History marital status: unmarried,single lives independently: Yes occupational status: disabled Smoking Status: Former smoker alcohol intake: current substance use type: does not use Smoking Status: Former smoker alcohol intake frequency: 0-2 drinks per day Substance Use Type: does not use Exam <Naima Martinez DO - Last Filed: 04/24/20 07:15> Narrative Exam Narrative: GENERAL: Alert and oriented x three, well nourished HEENT: Head normocephalic, atraumatic, EOMI, pupils reactive, face symmetric, moist mucous membranes, patient does have bandage present from recent surgery. NECK: Supple, full range of motion CARDIOVASCULAR: Regular rate and rhythm without murmurs, rubs or gallops. RESPIRATORY: Breath sounds equal bilaterally, no wheezes rales or rhonchi. ABDOMEN: Soft, nontender. Normoactive bowel sounds all 4 quadrants. No guarding or rebound, rigidity, no mass : No CVA tenderness EXTREMITIES: Normal range of motion, no clubbing. No edema bilaterally. Neurovascularly intact. Patient has full range of motion. Patient does have sensation to light touch in bilateral lower extremities. 5/5 muscle strength. Patient has generalized pallor and both lower extremities with no difference in left in comparison to right. NEUROLOGICAL: Cranial nerves II through XII grossly intact. Moving all extremities SKIN: Warm, dry, no petechiae, no rashes or lesions appreciated. Initial Vital Signs Initial Vital Signs: Vital Signs Temperature 96.9 F L 04/23/20 16:16 Pulse Rate 78 04/23/20 16:16 Respiratory Rate 18 04/23/20 16:16 Blood Pressure 124/81 04/23/20 16:16 Pulse Oximetry 100 04/23/20 16:16 <Tammie Abreu MD - Last Filed: 04/23/20 19:51> Initial Vital Signs Initial Vital Signs: Vital Signs Temperature 96.9 F L 04/23/20 16:16 Pulse Rate 78 04/23/20 16:16 Respiratory Rate 18 04/23/20 16:16 Blood Pressure 124/81 04/23/20 16:16 Pulse Oximetry 100 04/23/20 16:16 Course <Naima Martinez DO - Last Filed: 04/24/20 07:15> Orders Ordered: ED Orders 04/23/20 17:21 [facility] venous low extrem rt Stat Vital Signs Vital signs: Vital Signs - 8 hr 04/23/20 16:16 04/23/20 18:44 Temperature 96.9 F L 98.1 F Pulse Rate 78 70 Respiratory Rate 18 12 Blood Pressure 124/81 113/74 Pulse Oximetry 100 100 <Tammie Abreu MD - Last Filed: 04/23/20 19:51> Orders Ordered: ED Orders 04/23/20 17:21 [facility] venous low extrem rt Stat Vital Signs Vital signs: Vital Signs - 8 hr 04/23/20 16:16 04/23/20 18:44 Temperature 96.9 F L 98.1 F Pulse Rate 78 70 Respiratory Rate 18 12 Blood Pressure 124/81 113/74 Pulse Oximetry 100 100 <Tammie Abreu MD - Last Filed: 04/23/20 19:51> Imaging Data US - DVT: Radiologist's Impression: FINDINGS: The common femoral, femoral and popliteal veins are normally compressible, and free of intraluminal thrombus. Color and pulse Doppler demonstrate normal phasic intraluminal flow. There is normal augmentation response to distal compression maneuver. IMPRESSION: No deep venous thrombosis. Dictated by: Salome Serrano M.D. on 04/23/2020 at 18:44 MDM Narrative Medical decision making narrative: 50-year-old transitioning to female post cosmetic facial surgery and breast augmentation with paresthesia over the right leg and concern for DVT. No evidence of infection. She is sleeping on the couch post surgery because she is not allowed to roll to her side or her stomach until her surgical sites have healed more thoroughly. She has had an L4-5 S1 fusion previously and is currently experiencing no back pain. I suspect the sensation in the right dorsum of the foot and lateral aspect of the right calf is more related to paresthesias from positioning and nerve root irritation rather than infection and there currently is No evidence of DVT. Questions are answered and she is safe for home discharge Discharge Plan Departure Patient Disposition: Home Clinical Impression: Paresthesia of right leg Instructions: DI for Numbness/Tingling Activity Restrictions/Additional Instructions: Thank you for coming in today There is no evidence of DVT in your leg. I suspect that the numbness is more product of the weight your sleeping on the couch and some irritation to 1 of the nerve roots above your spinal fusion. There is nothing else that you need to do and I would expect this to improve over the next weeks I hope that your recovery continues to go well. Prescriptions: No Action levetiracetam [Keppra] 1,000 MG tablet 2,000 mg PO BID Qty: 0 RF: 0 quetiapine [Seroquel] 100 mg tablet 100 mg PO BEDTIME Qty: 90 RF: 3 valacyclovir 1 gram tablet 1,000 mg PO QPM Qty: 90 RF: 3 Depo-Estradiol 5 mg/mL oil 3 mg IM QWEEK RF: 0 sulfamethoxazole-trimethoprim 800-160 mg tablet 1 tab PO BID Qty: 20 RF: 1 topiramate 200 mg tablet 200 mg PO BID RF: 0 hydrocodone-acetaminophen 5-325 mg tablet 1 tab PO Q4-6H PRN (Reason: pain) Qty: 10 RF: 0 ondansetron 4 mg tablet,disintegrating 4 mg PO TID-QID PRN (Reason: nausea and vomiting) Qty: 10 RF: 0 Referrals: Inocencio Keenan MD [Primary Care Provider] -
--- NOTE | 2020-04-23 17:21 | DI.US.S_ITS ---
PROCEDURE: US PERIPH VENOUS LOW EXTREM RT INDICATIONS: right leg ting, recent surgery TECHNIQUE: Real-time imaging, as well as color and pulse Doppler interrogation, were performed of the lower extremity deep veins from the inguinal ligament to the popliteal fossa. COMPARISON: None. FINDINGS: The common femoral, femoral and popliteal veins are normally compressible, and free of intraluminal thrombus. Color and pulse Doppler demonstrate normal phasic intraluminal flow. There is normal augmentation response to distal compression maneuver. IMPRESSION: No deep venous thrombosis. Dictated by: Salome Serrano M.D. on 04/23/2020 at 18:44 Approved by: Salome Serrano M.D. on 04/23/2020 at 18:45
[2020-04-23 18:44] VITALS: BP 113/74; PULSE 70; RESP 12; TEMP 36.7; O2SAT 100
== END 2020-04-23 20:01 | disposition home or self-care (01) ==
PROVIDERS: Emergency Provider Emergency Medicine; Family Provider Internal Medicine; PCP Internal Medicine
DX: R20.2 Paresthesia of skin (principal)
CPT/HCPCS: 93971; 99283

== ENCOUNTER → 2020-05-12 17:57 | Outpatient (CLI) | payer OTHER, MEDICAID, SELFPAY ==
--- NOTE | 2020-05-12 | DI.MRI.S_ITS ---
PROCEDURE: MR LUMBAR SPINE WO CON INDICATIONS: SPINAL STENOSIS, LUMBAR REGION TECHNIQUE: Noncontrast sagittal T1 spin echo and T2 fast echo, sagittal STIR, axial T1 and T2 fast spin echo through the lumbar spine. In cases with scoliosis, additional coronal T2 fast spin echo may be performed. COMPARISON: [facility], MR, L-SPINE W&WO CONTRAST, 02/26/2015, 16:06. [facility] [place], CR, XR LUMBAR SPINE WITH OLBIQUES PLUS FLEXION EXTENSION, 05/03/2020, 14:54. [facility], MR, L-SPINE WITHOUT CONTRAST, 11/28/2006, 19:49. FINDINGS: Image quality: Excellent. Alignment and Curvature: 5 lumbar type vertebral bodies are present by plain film. Mild grade 1 retrolisthesis of L4 on L5. Bone Marrow: Marrow is of normal overall signal. No acute vertebral body compression fractures. Right-sided fusion hardware posteriorly at L5-S1. Mild reactive signal within the endplates adjacent to the L4-L5 and L5-S1 intervertebral discs. Spinal Cord: Conus medullaris terminates at the upper L1 level. Visualized cord demonstrates normal signal and size. Paraspinous Soft Tissues: No paravertebral masses. T12-L1: Mild disc desiccation and diffuse disc bulge. Mild epidural lipomatosis. Mild canal stenosis. Mild bilateral foraminal stenosis. L1-L2: Mild diffuse disc bulge. Mild disc desiccation. Mild facet hypertrophy. Mild epidural lipomatosis. Mild canal stenosis. Mild bilateral foraminal stenosis. No change. L2-L3: Mild facet and ligamentum flavum hypertrophy. Mild epidural lipomatosis. Mild canal stenosis. Mild bilateral foraminal stenosis. L3-L4: Mild diffuse disc bulge. Mild facet and ligamentum flavum hypertrophy. Mild epidural lipomatosis. Mild canal stenosis. Mild bilateral foraminal stenosis. No change. L4-L5: Moderate disc height loss and desiccation. Mild diffuse disc bulge. Mild facet and ligamentum flavum hypertrophy. Mild canal stenosis. Mild bilateral foraminal stenosis. No change. L5-S1: Interbody device placement. Status post fusion. Mild bilateral facet hypertrophy. Mild canal stenosis. Decreased, mild right foraminal stenosis. IMPRESSION: 1. Postsurgical sequelae. Decreased right-sided L5-S1 foraminal stenosis at L5-S1. 2. Multilevel degenerative disc and facet disease, as well as ligamentum flavum hypertrophy and epidural lipomatosis. 3. Mild multilevel canal and foraminal stenoses. Dictated by: Joanne August M.D. on 05/13/2020 at 9:01 Approved by: Joanne August M.D. on 05/13/2020 at 9:05
== END ==
PROVIDERS: Family Provider Internal Medicine; PCP Internal Medicine; Referring Provider Physical Medicine & Rehabilitation Pain Medicine; Visit Provider Physical Medicine & Rehabilitation Pain Medicine
DX: M48.062 Spinal stenosis, lumbar region with neurogenic claudication (principal); M48.07 Spinal stenosis, lumbosacral region; M51.36 Other intervertebral disc degeneration, lumbar region; E88.2 Lipomatosis, not elsewhere classified; Z98.1 Arthrodesis status
CPT/HCPCS: 72148

== ENCOUNTER 2020-07-31 11:53 | Emergency (ER) | payer OTHER, MEDICAID, SELFPAY ==
[2020-07-31 11:55] VITALS: BP 114/76; PULSE 68; RESP 18; TEMP 36.7; O2SAT 99; BMI 30.7
[2020-07-31 12:04] VITALS: PULSE 68
[2020-07-31] MEDS: ACETAMINOPHEN 325 MG TABLET PO (12:25)
[2020-07-31] MEDS: IBUPROFEN 400 MG TABLET PO (12:25)
--- NOTE | 2020-07-31 13:07 | ED.LOWEXIN ---
HPI - Extremity Injury (Lower) General Chief Complaint: Extremity Injury, Lower Stated Complaint: Fell through a stair. 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 She describes a porch is being approximately 4 ft off the ground. Her foot did eventually land on the ground. At 6'8 she has long enough legs that her fall was stopped. She strained the knee falling through the porch. She complains of no hip pelvis or low back pain and does have significant hip flexibility that has proven quite helpful in this situation. She has had prior knee extension injuries and in the past had a period where she ended up using a ratcheting knee brace for about 6 months. Related Data Home Medications Medication Instructions Recorded Confirmed levetiracetam [Keppra] 2,000 mg PO BID #0 04/13/16 06/01/20 topiramate 200 mg PO BID 01/09/18 06/01/20 estradiol cypionate 5 mg/mL 3 mg IM QWEEK ml 12/26/18 06/01/20 intramuscular oil Previous Rx's Medication Instructions Recorded valacyclovir 1 gram tablet 1,000 mg PO QPM #90 tab 01/20/20 gabapentin 600 mg tablet 600 mg PO TID #270 tab 06/01/20 dexamethasone 2 mg tablet 2 mg PO Q6H #16 tab 06/07/20 quetiapine 100 mg tablet 100 mg PO BEDTIME #90 tab 07/28/20 Allergies Allergy/AdvReac Type Severity Reaction Status Date / Time diazepam Allergy Severe TACHYCARDIA Verified 07/31/20 12:03 strawberry Allergy Severe ANAPHYLAXIS Verified 07/31/20 12:03 trazodone Allergy Intermediate SEIZURE Verified 07/31/20 12:03 amitriptyline [AMITRIPTYLINE] Allergy Unknown Verified 07/31/20 12:03 nortriptyline [NORTRIPTYLINE] Allergy Unknown Verified 07/31/20 12:03 haloperidol AdvReac Severe JACKED ME Verified 07/31/20 12:03 UP prednisone AdvReac Severe Increases Verified 07/31/20 12:03 epilepsy episodes Review of Systems Review of Systems Narrative: Pertinent positive and negative findings as per HPI Remainder of review of systems is otherwise unremarkable for Constitutional: Fevers, chills, weakness ENT: No sore throat, neck pain, ear pain CV: Chest pain, palpitations, Respiratory: Cough, wheeze, dyspnea GI: Nausea, vomiting, diarrhea, : Dysuria, hematuria, Patient History Medical History (Updated 07/31/20 @ 13:13 by Tammie Abreu MD) Aortic stenosis Dislocation, shoulder Disturbed concentration Headache Lower back pain Mitral valve prolapse (10/21/10) Obstructive sleep apnea syndrome (10/21/10) Prolonged QT interval Seizure disorder (10/21/10) Sleep apnea Spinal stenosis Transgender Voice and resonance disorder Surgical History (Updated 07/31/20 @ 13:16 by Tammie Abreu MD) H/O breast augmentation H/O spinal fusion History of facial surgery S/P Achilles tendon repair Social History marital status: unmarried,single lives independently: Yes occupational status: disabled Smoking Status: Former smoker alcohol intake: current substance use type: does not use Smoking Status: Former smoker alcohol intake frequency: 0-2 drinks per day Substance Use Type: does not use Exam Narrative Exam Narrative: General: Alert appropriate in no acute distress Respiratory: Able to speak in full sentences, no obvious respiratory distress Skin: No obvious rashes, warm and dry Neurologic: Grossly intact no obvious asymmetries or abnormalities Psych: appropriate insight and affect, cooperative Extremity: No tenderness to low back or pelvis. No hip tenderness. Left knee with mild effusion superiorly tenderness along the medial and collateral ligaments. No obvious anterior posterior drawer sign but exam is limited by pain and fusion. She is able to bear weight on the knee. Initial Vital Signs Initial Vital Signs: Vital Signs Temperature 98.0 F 07/31/20 11:55 Pulse Rate 68 07/31/20 11:55 Respiratory Rate 18 07/31/20 11:55 Blood Pressure 114/76 07/31/20 11:55 Pulse Oximetry 99 07/31/20 11:55 Course Orders Ordered: Discontinued Medications Acetaminophen (Acetaminophen 325 Mg Tablet) 325 mg PO NOW ONE Stop: 07/31/20 12:17 Last Admin: 07/31/20 12:25 Dose: 325 mg Documented by: CHARLEEN Ibuprofen (Ibuprofen 400 Mg Tablet) 400 mg PO NOW ONE Stop: 07/31/20 12:17 Last Admin: 07/31/20 12:25 Dose: 400 mg Documented by: CHARLEEN Vital Signs Vital signs: Vital Signs - 8 hr 07/31/20 11:55 07/31/20 12:04 Temperature 98.0 F Pulse Rate 68 Pulse Rate [Left Dorsalis Pedis] 68 Respiratory Rate 18 Blood Pressure 114/76 Pulse Oximetry 99 MDM - Extremity Injury (Lower) Medical Records Attestation: I reviewed the patient's medical records. [facility] Narrative Medical decision making narrative: Given the mechanism of injury, extension only, imaging was not felt to be required at this time. She is placed in a knee immobilizer and reports that she does have a cane at home. Unfortunately I do not think that we have crutches that are tall enough to be of any use for her. Ibuprofen and Tylenol and ineffective for pain and she declines any stronger pain medications at this time. Referred to orthopedic surgery and we discussed need for follow-up. She is safe for home discharge Discharge Plan Departure Patient Disposition: Home Clinical Impression: Knee hyperextension injury Qualifiers: Encounter type: initial encounter Laterality: left Qualified Code(s): S89.82XA - Other specified injuries of left lower leg, initial encounter Instructions: DI for Knee Pain Activity Restrictions/Additional Instructions: Thank you for coming in today I am sorry you have this extension injury of your knee. I am glad that your legs were long enough and your hips for flexible enough that your knee is the only thing that you injured in falling through this step Using 400 mg of ibuprofen (2 [id number] pills) and 1 Tylenol every 6 hours can be very helpful in controlling pain. Ice can also be helpful. I placed you in a knee splint for stabilization. I would encourage you to use your cane. Please schedule follow-up with the orthopedic surgery office toward the end of this week. If your symptoms have completely resolved you can cancel that appointment but if you are still having pain swelling or instability it will be nice to have further evaluation and decide if advanced imaging like MRI might be required. I wish you the best Prescriptions: No Action levetiracetam [Keppra] 1,000 MG tablet 2,000 mg PO BID Qty: 0 RF: 0 valacyclovir 1 gram tablet 1,000 mg PO QPM Qty: 90 RF: 3 dexamethasone 2 mg tablet 2 mg PO Q6H Qty: 16 RF: 0 quetiapine [Seroquel] 100 mg tablet 100 mg PO BEDTIME Qty: 90 RF: 1 Depo-Estradiol 5 mg/mL oil 3 mg IM QWEEK RF: 0 gabapentin 600 mg tablet 600 mg PO TID Qty: 270 RF: 5 topiramate 200 mg tablet 200 mg PO BID RF: 0 Referrals: Inocencio Keenan MD [Primary Care Provider] -
[2020-07-31 13:40] VITALS: BP 117/80; PULSE 60; RESP 18; O2SAT 100
== END 2020-07-31 13:41 | disposition home or self-care (01) ==
PROVIDERS: Emergency Provider Emergency Medicine; Family Provider Internal Medicine; PCP Internal Medicine
DX: S89.82XA Other specified injuries of left lower leg, initial encounter (principal); W19.XXXA Unspecified fall, initial encounter
CPT/HCPCS: 99282; 99283

== ENCOUNTER → 2020-08-13 16:52 | Outpatient (CLI) | payer OTHER, MEDICAID, SELFPAY ==
--- NOTE | 2020-08-13 | DI.MRI.S_ITS ---
PROCEDURE: MR KNEE LT WO CON INDICATIONS: pain in left knee TECHNIQUE: Noncontrast sagittal PD fast spin echo and T2 fast spin echo with fat saturation, sagittal 3-D FLASH with fat saturation; coronal T1 spin echo and PD fast spin echo with fat saturation, and axial PD fast spin echo with fat saturation through the knee. COMPARISON: [facility] [place], CR, XR KNEE 4+ VIEWS LEFT, 08/04/2020, 9:41. FINDINGS: Image quality: Excellent. Menisci: There is amorphous high signal intensity within the lateral meniscal body without articular surface extension, consistent with myxoid degeneration. The medial and lateral menisci demonstrate otherwise normal morphology and internal signal. The meniscal root ligaments appear intact. Cruciate ligaments: The anterior and posterior cruciate ligaments appear intact. Medial structures: The medial collateral ligament appears intact. Visualized portions of the pes anserinus tendons appear normal. No abnormal bursal fluid. Lateral structures: The lateral collateral ligament, long and short heads of the biceps femoris tendon appear intact. The popliteus tendon appears normal. Iliotibial band appears normal. Anterior structures: The quadriceps and patellar tendons appear intact. Mild T2 signal elevation within the quadriceps and patellar tendons at the patellar insertion sites. Patellar alignment is normal. No femoral trochlear dysplasia or ventral trochlear prominence. No edema in the infrapatellar fat pad. Bones and cartilage: Linear low T1 signal intensity traverses the fibular head, with moderate surrounding ill-defined T2 signal elevation. The cartilage of the medial and lateral femorotibial compartments, as well as the patellofemoral compartment, appears normal in thickness. Joint space: There is physiologic knee joint fluid. No Goldberg's cyst. Normal appearing synovial plicae are incidentally noted. IMPRESSION: 1. Nondisplaced fibular head fracture with surrounding contusion. 2. No internal derangement. 3. Quadriceps and patellar tendinopathy. Dictated by: Joanne August M.D. on 08/17/2020 at 8:52 Approved by: Joanne August M.D. on 08/17/2020 at 9:14
== END ==
PROVIDERS: Family Provider Internal Medicine; PCP Internal Medicine; Referring Provider Orthopaedic Surgery; Visit Provider Orthopaedic Surgery
DX: M25.562 Pain in left knee (principal); S82.832A Other fracture of upper and lower end of left fibula, initial encounter for closed fracture; X58.XXXA Exposure to other specified factors, initial encounter
CPT/HCPCS: 73721

== ENCOUNTER 2020-10-12 16:18 | Emergency (ER) | payer OTHER, MEDICAID, SELFPAY ==
[2020-10-12 16:30] VITALS: BP 146/101; PULSE 61; RESP 18; TEMP 36.1; O2SAT 99
--- NOTE | 2020-10-12 17:18 | DI.CT.S_ITS ---
PROCEDURE: CT HEAD/BRAIN WO CON INDICATIONS: right sided headache x 2 weeks TECHNIQUE: Noncontrast 4.5 mm thick angled axial sections acquired from the foramen magnum to the vertex, with coronal and sagittal reformats. For radiation dose reduction, the following was used: automated exposure control, adjustment of mA and/or kV according to patient size. COMPARISON: [facility], CT, HEAD WITHOUT CONTRAST, 04/13/2016, 18:30. FINDINGS: Image quality: Excellent. CSF spaces: Basal cisterns are patent. No extra-axial fluid collections. Ventricles are normal in size and shape. Brain: No midline shift. No intracranial masses or hemorrhage. Ortega-white matter interface is normal. Skull and face: Calvarium and visualized facial bones are intact, without suspicious lesions. Sinuses: Visualized sinuses and mastoids are clear. IMPRESSION: No acute intracranial abnormality. Dictated by: Toñito Vallejo M.D. on 10/12/2020 at 17:53 Approved by: Toñito Vallejo M.D. on 10/12/2020 at 17:54
[2020-10-12 17:52] VITALS: PULSE 63; O2SAT 99
[2020-10-12 18:00] VITALS: BP 125/75; PULSE 60; O2SAT 100
--- NOTE | 2020-10-12 18:12 | ED_ITS ---
HPI - Headache General Chief Complaint: Headache Stated Complaint: rt sided excruciating headache, lips numb Time Seen by Provider: 10/12/20 18:10 Mode of arrival: Ambulatory Limitations: no limitations History of Present Illness HPI Narrative: 50-year-old transgender woman with severe right-sided temporal headache that feels very musculoskeletal she is noticing some blurry vision up close that seems to be worse than her usual issues. No distance or peripheral vision abnormalities. She is not nauseated the pain is not positional not associated with fevers, cough, chills. She has noticed sinus drainage and no upper respiratory complaints. She does note some minor paresthesia in the left lower lip but she has also had significant facial surgeries and this paresthesia predates the onset of the severe right-sided headache. She has been on estrogen for the last 4 years and has not had problems with chronic headaches in the past. She has had no vomiting, diarrhea abdominal pain. Related Data Home Medications Medication Instructions Recorded Confirmed levetiracetam 1,000 mg tablet 2,000 mg PO BID #0 04/13/16 06/01/20 (Keppra) topiramate 200 mg tablet 200 mg PO BID 01/09/18 06/01/20 estradiol cypionate 5 mg/mL 3 mg IM QWEEK ml 12/26/18 06/01/20 intramuscular oil (Depo-Estradiol) Previous Rx's Medication Instructions Recorded valacyclovir 1 gram tablet 1,000 mg PO QPM #90 tab 01/20/20 gabapentin 600 mg tablet 600 mg PO TID #270 tab 06/01/20 dexamethasone 2 mg tablet 2 mg PO Q6H #16 tab 06/07/20 quetiapine 100 mg tablet (Seroquel) 100 mg PO BEDTIME #90 tab 07/28/20 oxycodone-acetaminophen 5 mg-325 1 tab PO Q6H PRN #10 tab 10/12/20 mg tablet Allergies Allergy/AdvReac Type Severity Reaction Status Date / Time diazepam Allergy Severe TACHYCARDIA Verified 10/12/20 16:34 strawberry Allergy Severe ANAPHYLAXIS Verified 10/12/20 16:34 trazodone Allergy Intermediate SEIZURE Verified 10/12/20 16:34 amitriptyline [AMITRIPTYLINE] Allergy Unknown Verified 10/12/20 16:34 nortriptyline [NORTRIPTYLINE] Allergy Unknown Verified 10/12/20 16:34 haloperidol AdvReac Severe JACKED ME Verified 10/12/20 16:34 UP prednisone AdvReac Severe Increases Verified 10/12/20 16:34 epilepsy episodes Review of Systems Review of Systems Narrative: Remainder of complete review of systems is otherwise unremarkable except for that included in the HPI. Patient History Medical History (Updated 10/12/20 @ 19:52 by Tammie Abreu MD) Aortic stenosis Dislocation, shoulder Disturbed concentration Headache Lower back pain Mitral valve prolapse (10/21/10) Obstructive sleep apnea syndrome (10/21/10) Prolonged QT interval Seizure disorder (10/21/10) Sleep apnea Spinal stenosis Transgender Voice and resonance disorder Surgical History (Updated 07/31/20 @ 13:16 by Tammie Abreu MD) H/O breast augmentation H/O spinal fusion History of facial surgery S/P Achilles tendon repair Social History marital status: unmarried,single lives independently: Yes occupational status: disabled Smoking Status: Former smoker alcohol intake: current substance use type: does not use Smoking Status: Former smoker alcohol intake frequency: 0-2 drinks per day Substance Use Type: does not use Exam Narrative Exam Narrative: General: Healthy appearing, in no acute distress. Able to give a complete and coherent history. Well-nourished well-developed HEENT: Moist mucous membranes, normal sclera with reactive pupils, cosmetic surgery scar sagittally over the top of her head that is well healed and non tender to palpation. The area of abnormality that she describes the pain over the right zoroastrian has no obvious skin changes, erythema, masses or palpable abnormalities on physical exam. She has no occipital insertion tenderness. There is no jaw clicking or popping with full range of motion of the TMJ. Neck: No cervical adenopathy supple Respiratory: Lungs are clear to auscultation, no wheezing no rales no rhonchi. Full and symmetrical air movement Cardiac: Regular rate and rhythm no murmurs no bruits Abdomen: Soft, nontender, good bowel tones, no flank pain Skin: Warm and dry, no rashes Neurologic: Grossly neurologically intact with no obvious asymmetries or abnormalities Extremities: No trauma, well perfused Psych: Cooperative, appropriate insight and affect Initial Vital Signs Initial Vital Signs: Vital Signs Temperature 97 F L 10/12/20 16:30 Pulse Rate 61 08/31/21 16:30 Respiratory Rate 18 10/12/20 16:30 Blood Pressure 146/101 H 10/12/20 16:30 Pulse Oximetry 99 10/12/20 16:30 Course Orders Ordered: ED Orders 10/12/20 17:18 CT head/brain wo con Stat CMP [Comprehensive Metabolic Panel] Stat Complete Blood Count AUTO DIFF Stat Discontinued Medications Ketorolac Tromethamine (Ketorolac 30 Mg/Ml Vial) 30 mg IM NOW ONE Stop: 10/12/20 18:53 Last Admin: 10/12/20 19:03 Dose: 30 mg Documented by: MISTY Oxycodone/Acetaminophen (Oxycodone/Apap 5/325 Prepack) 1 bottle MISC SEEINSTR ONE Stop: 10/12/20 18:53 Last Admin: 10/12/20 19:03 Dose: 1 bottle Documented by: MISTY Vital Signs Vital signs: Vital Signs - 8 hr 10/12/20 16:30 Temperature 97 F L Pulse Rate 61 Respiratory Rate 18 Blood Pressure 146/101 H Pulse Oximetry 99 MDM - Headache Imaging Data Chest x-ray: Radiologist's Impression: FINDINGS: Image quality: Excellent. CSF spaces: Basal cisterns are patent. No extra-axial fluid collections. Ventricles are normal in size and shape. Brain: No midline shift. No intracranial masses or hemorrhage. Ortega-white matter interface is normal. Skull and face: Calvarium and visualized facial bones are intact, without suspicious lesions. Sinuses: Visualized sinuses and mastoids are clear. IMPRESSION: No acute intracranial abnormality. Dictated by: Toñito Vallejo M.D. on 10/12/2020 at 17:53 MDM Narrative Medical decision making narrative: 50-year-old transgender woman with 1 and half weeks of severe right-sided head pain CT scan is unremarkable there is no evidence of shingles, I do not suspect any type of nerve entrapment from prior surgeries as the surgeries are well healed at this time. Does not seem to be location appropriate to suggest trigeminal neuralgia. No intracranial or skull abnormalities appreciated. At this time this is not appear to be a life- threatening headache. She is treated with IM Toradol and due to the severity of the pain will be discharged home with of brief prescription for Percocet to use over the next 1-2 days. On re-evaluation headache is significantly improved. Will ask her to follow-up with her primary care physician if symptoms are not improving. Discharge Plan Departure Patient Disposition: Home Clinical Impression: Headache Qualifiers: Headache type: unspecified Headache chronicity pattern: acute headache Intractability: not intractable Qualified Code(s): R51.9 - Headache, unspecified Instructions: DI for Headache Activity Restrictions/Additional Instructions: Thank you for coming in today I did not find a life-threatening cause to explain the severe head pain but having over the last week and half. Your was reassuring. There is no bleeding inside your head, no tumors or masses. No abnormalities to the skull itself and no obvious soft tissue abnormalities over the area of your pain. Your given a shot of Toradol, medicine similar to ibuprofen. Using 400 mg of ibuprofen (2 [id number] pills) and 1 Tylenol every 6 hours can be very helpful in controlling pain. For severe pain using 400 mg of ibuprofen and 1 Percocet will be acceptable. Prescription was electronically transmitted to [facility] in [place] for you this evening. Using narcotic pain medication for a severe headache for 1-2 days is reasonable, however continued narcotics for chronic headache pain is absolutely not reasonable. If you continue to have pain, please follow-up with your primary care doctor Prescriptions: New oxycodone-acetaminophen 5-325 mg tablet 1 tab PO Q6H PRN (Reason: pain) Qty: 10 RF: 0 No Action levetiracetam [Keppra] 1,000 MG tablet 2,000 mg PO BID Qty: 0 RF: 0 valacyclovir 1 gram tablet 1,000 mg PO QPM Qty: 90 RF: 3 dexamethasone 2 mg tablet 2 mg PO Q6H Qty: 16 RF: 0 quetiapine [Seroquel] 100 mg tablet 100 mg PO BEDTIME Qty: 90 RF: 1 Depo-Estradiol 5 mg/mL oil 3 mg IM QWEEK RF: 0 gabapentin 600 mg tablet 600 mg PO TID Qty: 270 RF: 5 topiramate 200 mg tablet 200 mg PO BID RF: 0 Referrals: Inocencio Keenan MD [Primary Care Provider] -
[2020-10-12 18:30] VITALS: BP 118/81; PULSE 58; O2SAT 100
[2020-10-12 19:00] VITALS: BP 120/79; PULSE 57; O2SAT 100
[2020-10-12] MEDS: OXYCODONE/APAP 5/325 PREPACK 1 BOTTLE MISC (19:03)
[2020-10-12] MEDS: KETOROLAC 30 MG/ML VIAL IM (19:03)
[2020-10-12 20:24] VITALS: BP 126/81; PULSE 71; O2SAT 99
== END 2020-10-12 20:21 | disposition home or self-care (01) ==
PROVIDERS: Emergency Provider Emergency Medicine; Family Provider Internal Medicine; PCP Internal Medicine
DX: R51.9 Headache, unspecified (principal); H53.8 Other visual disturbances
CPT/HCPCS: 70450; 96372; 99283; 99284; J1885

== ENCOUNTER → 2021-07-20 10:00 | Outpatient (CLI) | payer OTHER, MEDICAID, SELFPAY ==
[2021-07-20 10:34] LABS: COVID19 -Nasal RAPID Negative (Negative)
== END ==
PROVIDERS: Family Provider Internal Medicine; PCP Internal Medicine; Referring Provider Urology; Visit Provider Urology
DX: Z20.822 Contact with and (suspected) exposure to COVID-19 (principal)
CPT/HCPCS: 87635; C9803

== ENCOUNTER 2021-11-22 13:01 | Day surgery (SDC) | payer OTHER, MEDICAID, SELFPAY ==
[2021-11-22] VITALS (7 sets, daily range): BP systolic 104–139; BP diastolic 44–87; PULSE 50–61; RESP 18; TEMP 35.8–36.3; O2SAT 100; BMI 30.2
[2021-11-22] MEDS: LACTATED RINGERS 1,000 ML 42 ML IV (13:59)
[2021-11-22 14:37] LABS: COVID19 -Nasal RAPID Negative (Negative)
--- NOTE | 2021-11-22 15:08 | PM.PREOP ---
Pre-operative Note COVID-19 COVID-19 status: Negative Interval Note History & Physical reviewed/Exam performed by Physician: Yes Changes to H&P: No ASA Class (for procedural sedation): III
--- NOTE | 2021-11-22 15:56 | PM.OP.COLON ---
Operative Date/Time/Diagnoses Date of procedure: 11/22/21 Time of procedure: 15:56 Pre-op diagnosis: Colon cancer screening Post-op diagnosis: same Procedure & Clinicians Study performed: Colonoscopy Surgeon: Klever Krishnan Procedure Notes Procedure in detail: Surgeon: Klever Krishnan MD Anesthesia: Jm Shetty MD Procedure: The patient was brought to the endoscopy suite, placed in left lateral decubitus position. The patient was connected to monitoring devices. A time-out was performed. Monitored anesthesia was administered.. Once the patient was adequately sedated, a digital rectal exam was performed and was normal. The scope was then inserted and advanced to the cecum where the appendiceal orifice was identified and photographed. The scope was then slowly withdrawn over greater than 6 minutes. The mucosa was thoroughly inspected. There were a few scattered diverticula mostly in the left colon. The scope was retroflexed in the rectum. There were some internal hemorrhoids. The scope was straightened and removed. The patient was awakened and brought to recovery. EBL: 0 Findings: A few scattered diverticula and mild internal hemorrhoids. Scope withdrawal time: 9 minutes Findings: divertiulosis Post-procedure Recommendations: Colonoscopy in 10 years Disposition: PACU
== END 2021-11-22 16:44 | disposition home or self-care (01) ==
PROVIDERS: Family Provider Internal Medicine; PCP Internal Medicine; Referring Provider Surgery; Visit Provider Surgery
PROC: 0DJD8ZZ Inspection of Lower Intestinal Tract, Via Natural or Artificial Opening Endoscopic (ICD-10-PCS; CPT 45378; principal; 2021-11-22 14:45)
DX: Z12.11 Encounter for screening for malignant neoplasm of colon (principal); D64.9 Anemia, unspecified; G40.909 Epilepsy, unspecified, not intractable, without status epilepticus; I35.0 Nonrheumatic aortic (valve) stenosis; K64.8 Other hemorrhoids; K57.30 Diverticulosis of large intestine without perforation or abscess without bleeding
CPT/HCPCS: G0121; 00812; 87635; C9803

== ENCOUNTER 2022-09-14 17:07 | Emergency (ER) | payer MEDICARE, MEDICAID, SELFPAY ==
[2022-09-14 17:21] VITALS: BP 115/71; PULSE 77; RESP 16; TEMP 37.1; O2SAT 99; BMI 30.6
[2022-09-14 18:30] LABS: Appearance Urine UA SL CLOUDY; Color Urine UA ORANGE
[2022-09-14 18:38] LABS: Bacteria Urine Occasional (0-1); Culture Indicated Urine Cult Not Indicated; RBC Urine None Seen (0-5/HPF); Squamous Epithelial Cell Urine 1-5 /HPF (0-5/HPF); WBC Urine 0-1/HPF (0-5/HPF)
--- NOTE | 2022-09-14 19:04 | PC.NURSE ---
pt states she feels like she has been unable to void completely since getting a chemical stress test on sunday. pelvic area is extremely sensitive to touch. denies frequency.
[2022-09-14 19:18] VITALS: BP 111/69; PULSE 60; O2SAT 99
== END 2022-09-14 19:58 | disposition left against medical advice (07) ==
PROVIDERS: Emergency Provider Emergency Medicine; Family Provider Internal Medicine; PCP Internal Medicine
DX: R33.9 Retention of urine, unspecified (principal)
CPT/HCPCS: 51798; 81001; 99282

== ENCOUNTER → 2022-10-12 14:34 | Outpatient (CLI) | payer MEDICARE, MEDICAID, SELFPAY ==
--- NOTE | 2022-10-12 14:37 | DI.RAD.S_ITS ---
PROCEDURE: XR CHEST 2V INDICATIONS: shortness of breath TECHNIQUE: 2 views of the chest were acquired. COMPARISON: [facility], CR, XR CHEST 2V, 04/28/2019, 14:27. FINDINGS: Surgical changes and devices: None. Lungs and pleura: Lungs are clear. No pleural effusions or pneumothorax. Mediastinum: Mediastinal contours are normal. Heart size is normal. Bones and chest wall: No suspicious bony abnormalities. Soft tissues appear unremarkable. IMPRESSION: No acute cardiopulmonary abnormality is seen. Dictated by: Quintin Hale M.D. on 10/12/2022 at 16:51 Approved by: Quintin Hale M.D. on 10/12/2022 at 16:52
== END ==
PROVIDERS: Family Provider Internal Medicine; PCP Internal Medicine; Referring Provider Internal Medicine; Visit Provider Internal Medicine
DX: R06.02 Shortness of breath (principal)
CPT/HCPCS: 71046

== ENCOUNTER → 2022-11-15 11:19 | Outpatient (CLI) | payer MEDICARE, MEDICAID, SELFPAY | PROVIDERS: Family Provider Internal Medicine; PCP Internal Medicine; Referring Provider Internal Medicine; Visit Provider Internal Medicine | DX: R05.9 Cough, unspecified (principal); R06.02 Shortness of breath; Z87.891 Personal history of nicotine dependence; J98.8 Other specified respiratory disorders | CPT/HCPCS: 94060; 94726; 94729 ==

== ENCOUNTER → 2022-12-25 16:38 | Outpatient (CLI) | payer MEDICARE, MEDICAID, SELFPAY ==
[2022-12-25 17:54] LABS: Alanine Aminotransferase 15 IU/L (<50); Albumin 4.3 g/dL (3.5-5.0); Albumin Globulin Ratio 1.2 (1.0-2.8); Alkaline Phosphatase 90 U/L (38-126); Aspartate Aminotransferase 29 IU/L (17-59); Bilirubin Total 0.6 mg/dL (0.2-1.3); Blood Urea Nitrogen 16 mg/dL (9-20); Calcium 9.5 mg/dL (8.4-10.2); Carbon Dioxide 19 mmol/L (22-32); Chloride 107 mmol/L (98-107); Estimated Glomerular Filt Rate > 60 mL/min (>60); Globulin 3.5 g/dL (1.7-4.1); Glucose 92 mg/dL (70-100); HEMOLYSIS < 15 (0-50); Sodium 139 mmol/L (137-145); Total Protein 7.8 g/dL (6.3-8.2)
[2022-12-25 17:55] LABS: Hemoglobin A1C% w Est Avg Glu 5.1 % (4.0-6.0)
== END ==
PROVIDERS: Family Provider Internal Medicine; PCP Internal Medicine; Referring Provider Internal Medicine; Visit Provider Internal Medicine
DX: R73.9 Hyperglycemia, unspecified (principal); I35.0 Nonrheumatic aortic (valve) stenosis; R94.31 Abnormal electrocardiogram [ECG] [EKG]; G40.909 Epilepsy, unspecified, not intractable, without status epilepticus; M54.59 Other low back pain
CPT/HCPCS: 36415; 80053; 83036